=== PATIENT | female | born 1940 | race Caucasian/White ===

== ENCOUNTER 2019-12-22 10:30 | Emergency (ER) | payer MEDICARE, OTHER ==
[2019-12-22] MEDS ORDERED: SODIUM CHLORIDE 0.9% 1,000 ML IV STA ×2 (11:13)
[2019-12-22] MEDS ORDERED: MORPHINE SULFATE 4 MG/ML SYRINGE IVP STA (11:20)
[2019-12-22] MEDS ORDERED: PANTOPRAZOLE 40 MG/10 ML VIAL IVP STA (11:20)
[2019-12-22 11:44] LABS: Basophils % (A) 0 %; Eosinophils # (A) 0.1 k/uL (0-0.7); Eosinophils % (A) 3 %; HCT 43.3 % (34.0-46.0); HGB 13.6 gm/dL (11.4-16.0); Lymphocytes # (A) 1.2 k/uL (1.0-4.8); Lymphocytes % (A) 24 %; MCH 30.3 pg (25.0-35.0); MCHC 31.5 g/dL (31.0-37.0); MCV 96.3 fL (80.0-100.0); Mean Platelet Volume 9.8; Monocytes # (A) 0.2 k/uL (0-1.0); Monocytes % (A) 5 %; Neutrophils # (A) 3.4 k/uL (1.3-7.7); Neutrophils % (A) 67 %; Platelet Count 166 k/uL (150-450); RBC 4.49 m/uL (3.80-5.40); RDW 15.1 % (11.5-15.5); WBC 5.1 k/uL (3.8-10.6)
[2019-12-22 11:50] LABS: ALT 11 U/L (4-34); AST 24 U/L (14-36); African American GFR (CKD) >90 (>60 ml/min/1.73 sqM); Albumin 3.5 g/dL (3.5-5.0); Alkaline Phosphatase 102 U/L (38-126); Amylase 31 U/L (30-110); Anion Gap 9 mmol/L; Blood Urea Nitrogen 14 mg/dL (7-17); Calcium 8.6 mg/dL (8.4-10.2); Carbon Dioxide 25 mmol/L (22-30); Chloride 106 mmol/L (98-107); Glucose 103 mg/dL (74-99); Non-African American GFR(CKD) 86 (>60 ml/min/1.73 sqM); Potassium 3.4 mmol/L (3.5-5.1); Sodium 140 mmol/L (137-145); Total Bilirubin 1.8 mg/dL (0.2-1.3); Total Protein 6.7 g/dL (6.3-8.2)
--- NOTE | 2019-12-22 11:50 | ED ---
Abdominal Pain HPI - General Chief Complaint: Abdominal Pain Stated Complaint: lower GI Bleed Time Seen by Provider: 12/22/19 10:49 Source: patient, family, RN notes reviewed, old records reviewed Mode of arrival: wheelchair Limitations: no limitations - History of Present Illness Initial Comments: 79-year-old female presents emergency department today for evaluation for concern for lower GI bleed. She is on Coumadin with history of A. fib. They report her INR has been elevated around 3.2, and she should normally be 2-3. Patient complained of some left lower abdominal pain had a bowel movement today noticed mucousy bloody stool. Patient son reports she has early Alzheimer's. Denies mental status change. - Related Data Home Medications Medication Instructions Recorded Confirmed Allopurinol [Zyloprim] 300 mg PO DAILY@0600 12/22/19 12/22/19 Cholecalciferol (Vitamin D3) 2,000 unit PO DAILY@0600 12/22/19 12/22/19 [Vitamin D3] Cyanocobalamin [Vitamin B-12] 500 mcg PO DAILY@0600 12/22/19 12/22/19 Donepezil [Aricept] 10 mg PO BID@0600,1800 12/22/19 12/22/19 Lovastatin [Mevacor] 20 mg PO HS@1800 12/22/19 12/22/19 Memantine [Namenda] 10 mg PO BID@0600,1800 12/22/19 12/22/19 Methylphenidate HCl [Ritalin] 10 mg PO BID@0600,1200 12/22/19 12/22/19 Metoprolol Succinate [Toprol XL] 25 mg PO HS@179912/22/19 12/22/19 Warfarin Sodium 4 mg PO MOTUWETHFRSA@179912/22/19 12/22/19 Warfarin Sodium 6 mg PO YOO@179912/22/19 12/22/19 Previous Rx's Medication Instructions Recorded Amoxic-Pot Clav 875-125Mg 1 tab PO Q12HR #20 tablet 12/22/19 [Augmentin 875-125] Allergies Allergy/AdvReac Type Severity Reaction Status Date / Time UNKNOWN ANTIBIOTIC Allergy Unknown Uncoded 12/22/19 12:06 Review of Systems ROS Statement: Those systems with pertinent positive or pertinent negative responses have been documented in the HPI. ROS Other: All systems not noted in ROS Statement are negative. Past Medical History Past Medical History: Hypertension Additional Past Medical History / Comment(s): alhzeimer History of Any Multi-Drug Resistant Organisms: None Reported Past Surgical History: Cholecystectomy, Hernia Repair, Hysterectomy Smoking Status: Never smoker Past Alcohol Use History: None Reported Past Drug Use History: None Reported General Exam - General Exam Comments Initial Comments: 79-year-old female. Alert and oriented 3. Limitations: no limitations General appearance: alert, in no apparent distress Head exam: Present: atraumatic, normocephalic, normal inspection Eye exam: Present: normal appearance, PERRL, EOMI. Absent: scleral icterus, conjunctival injection, periorbital swelling ENT exam: Present: normal exam, mucous membranes moist Neck exam: Present: normal inspection. Absent: tenderness, meningismus, lymphadenopathy Respiratory exam: Present: normal lung sounds bilaterally. Absent: respiratory distress, wheezes, rales, rhonchi, stridor Cardiovascular Exam: Present: regular rate, normal rhythm, normal heart sounds. Absent: systolic murmur, diastolic murmur, rubs, gallop, clicks GI/Abdominal exam: Present: soft, tenderness (LLQ tenderness), normal bowel sounds. Absent: distended, guarding, rebound, rigid Rectal exam: Present: heme (+) stool (bright red blood, mucous stool) Extremities exam: Present: normal inspection, full ROM, normal capillary refill. Absent: tenderness, pedal edema, joint swelling, calf tenderness Back exam: Present: normal inspection Neurological exam: Present: alert, oriented X3, CN II-XII intact Course Vital Signs 12/22/19 12/22/19 12/22/19 10:38 12:45 13:39 Temperature 97.7 F 97.9 F Pulse Rate 89 66 80 Respiratory 18 18 19 Rate Blood Pressure 141/90 125/78 128/90 O2 Sat by Pulse 95 93 L 96 Oximetry Medical Decision Making - Medical Decision Making 79-year-old female presented today with complaint of concern for bloody mucousy stools left lower quadrant pain onset today. Vital signs are stable. Patient's labwork was reviewed and normal hemoglobin of 13. She does have red blood per rectum, mucousy stool. She had a computed tomography scan showing evidence of mild colitis. Computed tomography scan also mentioned some groundglass opacities concerning for infectious etiology. Discussed at this time placing the Patient on Augmentin to cover for abnormal findings on CT of her lungs as well as to treat for colitis. Discussed. Liquid diet. Her INR is elevated at 3.3. I discussed with antibiotics 2 hold the Coumadin for 2 days and to recheck with primary care doctor. All questions were answered return parameters were discussed. - Lab Data Result diagrams: 12/22/19 11:25 12/22/19 11:25 Lab Results 12/22/19 12/22/19 12/22/19 Range/Units 11:25 11:25 11:25 WBC 5.1 (3.8-10.6) k/uL RBC 4.49 (3.80-5.40) m/uL Hgb 13.6 (11.4-16.0) gm/dL Hct 43.3 (34.0-46.0) % MCV 96.3 (80.0-100.0) fL MCH 30.3 (25.0-35.0) pg MCHC 31.5 (31.0-37.0) g/dL RDW 15.1 (11.5-15.5) % Plt Count 166 (150-450) k/uL Neutrophils % 67 % Lymphocytes % 24 % Monocytes % 5 % Eosinophils % 3 % Basophils % 0 % Neutrophils # 3.4 (1.3-7.7) k/uL Lymphocytes # 1.2 (1.0-4.8) k/uL Monocytes # 0.2 (0-1.0) k/uL Eosinophils # 0.1 (0-0.7) k/uL Basophils # 0.0 (0-0.2) k/uL PT 31.8 H (9.0-12.0) sec INR 3.3 H (<1.2) APTT 32.7 H (22.0-30.0) sec Sodium 140 (137-145) mmol/L Potassium 3.4 L (3.5-5.1) mmol/L Chloride 106 (98-107) mmol/L Carbon Dioxide 25 (22-30) mmol/L Anion Gap 9 mmol/L BUN 14 (7-17) mg/dL Creatinine 0.64 (0.52-1.04) mg/dL Est GFR (CKD-EPI)AfAm >90 (>60 ml/min/1.73 sqM) Est GFR (CKD-EPI)NonAf 86 (>60 ml/min/1.73 sqM) Glucose 103 H (74-99) mg/dL Calcium 8.6 (8.4-10.2) mg/dL Total Bilirubin 1.8 H (0.2-1.3) mg/dL AST 24 (14-36) U/L ALT 11 (4-34) U/L Alkaline Phosphatase 102 (38-126) U/L Total Protein 6.7 (6.3-8.2) g/dL Albumin 3.5 (3.5-5.0) g/dL Amylase 31 (30-110) U/L Lipase 224 (23-300) U/L Urine Color Urine Appearance (Clear) Urine pH (5.0-8.0) Ur Specific [place] (1.001-1.035) Urine Protein (Negative) Urine Glucose (UA) (Negative) Urine Ketones (Negative) Urine Blood (Negative) Urine Nitrite (Negative) Urine Bilirubin (Negative) Urine Urobilinogen (<2.0) mg/dL Ur Leukocyte Esterase (Negative) Urine RBC (0-5) /hpf Urine WBC (0-5) /hpf Ur Squamous Epith Cells (0-4) /hpf Urine Bacteria (None) /hpf Hyaline Casts (0-2) /lpf Urine Mucus (None) /hpf Stool Occult Blood (Negative) 12/22/19 12/22/19 Range/Units 11:49 12:06 WBC (3.8-10.6) k/uL RBC (3.80-5.40) m/uL Hgb (11.4-16.0) gm/dL Hct (34.0-46.0) % MCV (80.0-100.0) fL MCH (25.0-35.0) pg MCHC (31.0-37.0) g/dL RDW (11.5-15.5) % Plt Count (150-450) k/uL Neutrophils % % Lymphocytes % % Monocytes % % Eosinophils % % Basophils % % Neutrophils # (1.3-7.7) k/uL Lymphocytes # (1.0-4.8) k/uL Monocytes # (0-1.0) k/uL Eosinophils # (0-0.7) k/uL Basophils # (0-0.2) k/uL PT (9.0-12.0) sec INR (<1.2) APTT (22.0-30.0) sec Sodium (137-145) mmol/L Potassium (3.5-5.1) mmol/L Chloride (98-107) mmol/L Carbon Dioxide (22-30) mmol/L Anion Gap mmol/L BUN (7-17) mg/dL Creatinine (0.52-1.04) mg/dL Est GFR (CKD-EPI)AfAm (>60 ml/min/1.73 sqM) Est GFR (CKD-EPI)NonAf (>60 ml/min/1.73 sqM) Glucose (74-99) mg/dL Calcium (8.4-10.2) mg/dL Total Bilirubin (0.2-1.3) mg/dL AST (14-36) U/L ALT (4-34) U/L Alkaline Phosphatase (38-126) U/L Total Protein (6.3-8.2) g/dL Albumin (3.5-5.0) g/dL Amylase (30-110) U/L Lipase (23-300) U/L Urine Color Yellow Urine Appearance Clear (Clear) Urine pH 6.0 (5.0-8.0) Ur Specific [place] 1.018 (1.001-1.035) Urine Protein Trace H (Negative) Urine Glucose (UA) Negative (Negative) Urine Ketones Negative (Negative) Urine Blood Trace H (Negative) Urine Nitrite Negative (Negative) Urine Bilirubin Negative (Negative) Urine Urobilinogen 2.0 (<2.0) mg/dL Ur Leukocyte Esterase Small H (Negative) Urine RBC 2 (0-5) /hpf Urine WBC 1 (0-5) /hpf Ur Squamous Epith Cells 4 (0-4) /hpf Urine Bacteria Rare H (None) /hpf Hyaline Casts 10 H (0-2) /lpf Urine Mucus Moderate H (None) /hpf Stool Occult Blood Positive H (Negative) - Radiology Data Radiology results: report reviewed Groundglass opacities faintly present lung bases. Consider infectious etiology. Some THICKENING of the rectum not excluded. Mild thickening incomplete distended distal symmetric sigmoid colon. Consider mild colitis. Diverticulosis without acute diverticulitis. Disposition Clinical Impression: Opacity of lung on imaging study, Colitis Disposition: HOME SELF-CARE Condition: Good Instructions (If sedation given, give patient instructions): Colitis (ED) Additional Instructions: Patient should have a clear liquid diet for the first 2 days. Then advance to bananas, rice, applesauce and toast diet. Discontinue Coumadin for 2 days. Recommended recheck after this. Patient should follow-up with primary care doctor in regards to CT finding. Return to emergency department if there is any alarming signs or symptoms occur. Prescriptions: Amoxic-Pot Clav 875-125Mg [Augmentin 875-125] 1 tab PO Q12HR #20 tablet Is patient prescribed a controlled substance at d/c from ED?: No Referrals: Juanjo Lin MD [Primary Care Provider] - 1-2 days Time of Disposition: 13:34
[2019-12-22 11:54] LABS: INR 3.3 (<1.2); Partial Thromboplastin Time 32.7 sec (22.0-30.0); Prothrombin Time 31.8 sec (9.0-12.0)
[2019-12-22 12:01] LABS: Appearance,Urine Clear (Clear); Bacteria,Urine Rare /hpf; Bilirubin,Urine Negative (Negative); Blood,Urine Trace (Negative); Color,Urine Yellow; Glucose,Urine (UA) Negative (Negative); Hyaline Casts,Urine 10 /lpf (0-2); Ketones,Urine Negative (Negative); Leukocyte Esterase,Urine Small (Negative); Mucus,Urine Moderate /hpf; Nitrite,Urine Negative (Negative); Protein,Urine Trace (Negative); RBC,Urine 2 /hpf (0-5); Specific Gravity,Urine 1.018 (1.001-1.035); Squamous Epithelial Cell,Urine 4 /hpf (0-4); WBC,Urine 1 /hpf (0-5)
--- NOTE | 2019-12-22 12:50 | CT ---
EXAMINATION TYPE: CT abdomen pelvis w con DATE OF EXAM: 12/22/2019 COMPARISON: None INDICATION: Lower GI Bleed DLP: 1476.9 mGycm, Automated exposure control for dose reduction was used. CONTRAST: 100 ml mL of Isovue 300. Study performed without Oral Contrast TECHNIQUE: Axial images were obtained from above the diaphragm to the pubic rami in the axial plane a t 5 mm thick sections. Reconstructed images are reviewed on the computer in the coronal plane. FINDINGS: Limited CT sections are obtained the lung bases. There is some groundglass opacities at the lung bas es. Infectious etiology should be considered within the differential. Pulmonary edema could be consid ered.. CT ABDOMEN: Liver: There is moderate fatty infiltration liver. Spleen: Normal Pancreas: Normal Adrenal glands: The adrenal glands are normal. Gallbladder: Surgically absent. Common bile duct is somewhat prominent. Kidneys: No masses are evident. No hydronephrosis is present. There is a cyst on the superior anter ior pole right kidney measuring 1.1 cm in -1 Hounsfield units Delayed images were obtained through t he kidneys, which remain unremarkable. Aorta: Normal Inferior vena cava: Normal. CT PELVIS: Studies performed without oral contrast. There are scattered diverticuli within the colon. This is gr eater in the sigmoid colon. No acute diverticulitis is evident. Rectal wall thickening cannot be excl uded. Clinical correlation is recommended. Appendix: Not visualized. No suspicious dilated tubular structures or inflammatory changes are eviden t. Urinary bladder: Normal. Genitourinary structures: Uterus and ovaries are not identified. Osseous structures: No suspicious lytic or sclerotic lesions. IMPRESSIONS: 1. Groundglass opacities faintly present at the lung bases. Consider an infectious etiology. 2. Some wall thickening of the rectum is not excluded. Milder thickening of the incompletely distende d distal sigmoid colon may be present. Consider some mild colitis. Clinical correlation recommended. 3. Diverticulosis without acute diverticulitis.
[2019-12-22] MEDS ORDERED: AMOXIC-POT CLAV 875MG STARTER PACK 2 TAB BTL PO STA (13:29)
[2019-12-22 13:40] VITALS: BP 128/90; PULSE 80; RESP 19; TEMP 97.9
== END 2019-12-22 13:40 | disposition home or self-care (01) ==
LOC: EC 10:30
DX: K52.9 Noninfective gastroenteritis and colitis, unspecified (principal); R91.8 Other nonspecific abnormal finding of lung field; I10 Essential (primary) hypertension; G30.9 Alzheimer's disease, unspecified; I48.91 Unspecified atrial fibrillation; Z79.899 Other long term (current) drug therapy; Z79.01 Long term (current) use of anticoagulants; Z88.1 Allergy status to other antibiotic agents; Z90.49 Acquired absence of other specified parts of digestive tract; Z90.710 Acquired absence of both cervix and uterus
CPT/HCPCS: 36415; 80053; 82150; 83690; 85025; 85610; 85730; 82272; 81001; 74177; 99284; 96374; 96375; 96361 ×2; J2270; C9113; Q9967

== ENCOUNTER 2020-02-18 12:12 | Inpatient (IN) | payer MEDICARE, OTHER ==
[2020-02-18] MEDS ORDERED: SODIUM CHLORIDE 0.9% 1,000 ML IV ONE ×2 (12:40)
[2020-02-18] MEDS ORDERED: MORPHINE SULFATE 4 MG/ML SYRINGE IV STA (12:40)
--- NOTE | 2020-02-18 13:22 | ED ---
Fall HPI - General Source: patient, RN notes reviewed, old records reviewed Mode of arrival: wheelchair <Ruth Marley - Last Filed: 02/18/20 15:45> <Jasiel Abbasi - Last Filed: 02/18/20 16:07> - General Chief Complaint: Fall Stated Complaint: Fall Time Seen by Provider: 02/18/20 12:24 - History of Present Illness Initial Comments: Patient is a 79-year-old female presents emergency department today with history of Alzheimer's. Patient reportedly tripped and fell she was home by herself and hit the front of her chest right chest wall on the edge of the couch. She complains of significant pain and tenderness to the right ribs with taking a deep breath and any movement. She is here with her son who takes care of her. He was at work when he was given a call by his in-laws who take care of his own mother at lunch time. The in-laws found her sitting on the ground and it's unknown for how long, but with son going to work Patient has been down to less than 3 hours. Patient denies any loss of consciousness. His her son states that she does have extensive history of Alzheimer's disease and her own history is not accurate. Patient's son states that he is concerned that he is unable to leave her at home anymore with the concern for falling and worsening dementia and is searching for some placement opportunities in assisted living or nursing facility. (Ruth Marley) - Related Data Home Medications Medication Instructions Recorded Confirmed Allopurinol [Zyloprim] 300 mg PO DAILY@0600 12/22/19 02/18/20 Cholecalciferol (Vitamin D3) 2,000 unit PO DAILY@59912/22/19 02/18/20 [Vitamin D3] Cyanocobalamin [Vitamin B-12] 500 mcg PO DAILY@59912/22/19 02/18/20 Donepezil [Aricept] 10 mg PO BID@06,199912/22/19 02/18/20 Lovastatin [Mevacor] 20 mg PO HS@199912/22/19 02/18/20 Memantine [Namenda] 10 mg PO BID@0600,199912/22/19 02/18/20 Methylphenidate HCl [Ritalin] 10 mg PO BID@0600,119912/22/1902/17/20 Metoprolol Succinate [Toprol XL] 25 mg PO HS@199912/22/19 02/18/20 Warfarin Sodium 4 mg PO MOTUWETHFRSA@199912/22/19 02/18/20 Warfarin Sodium 6 mg PO YOO@199912/22/19 02/18/20 Furosemide [Lasix] 40 mg PO DAILY@0600 02/18/20 02/18/20 Allergies Allergy/AdvReac Type Severity Reaction Status Date / Time sulfamethazine Allergy Unknown Verified 02/18/20 15:02 trimethoprim Allergy Unknown Verified 02/18/20 15:02 Review of Systems ROS Other: All systems not noted in ROS Statement are negative. <Ruth Marley - Last Filed: 02/18/20 15:45> ROS Other: All systems not noted in ROS Statement are negative. <Jasiel Abbasi - Last Filed: 02/18/20 16:07> ROS Statement: Those systems with pertinent positive or pertinent negative responses have been documented in the HPI. Past Medical History Past Medical History: Hypertension Additional Past Medical History / Comment(s): alhzeimer History of Any Multi-Drug Resistant Organisms: None Reported Past Surgical History: Cholecystectomy, Hernia Repair, Hysterectomy Smoking Status: Never smoker Past Alcohol Use History: None Reported Past Drug Use History: None Reported <Ruth Marley - Last Filed: 02/18/20 15:45> General Exam Limitations: no limitations General appearance: alert Head exam: Present: atraumatic, normocephalic, normal inspection Eye exam: Present: normal appearance, PERRL, EOMI. Absent: scleral icterus, conjunctival injection, periorbital swelling ENT exam: Present: normal exam, mucous membranes moist Neck exam: Present: normal inspection. Absent: tenderness, meningismus, lymphadenopathy Respiratory exam: Present: other ( has significant tenderness over the right anterior ribs and sternum. No bruising.). Absent: normal lung sounds bilaterally, respiratory distress, wheezes, rales, rhonchi, stridor Cardiovascular Exam: Present: regular rate, normal rhythm, normal heart sounds. Absent: systolic murmur, diastolic murmur, rubs, gallop, clicks GI/Abdominal exam: Present: soft, normal bowel sounds. Absent: distended, tenderness, guarding, rebound, rigid Extremities exam: Present: normal inspection, full ROM, normal capillary refill. Absent: tenderness, pedal edema, joint swelling, calf tenderness Back exam: Present: normal inspection Neurological exam: Present: alert, oriented X3, CN II-XII intact Psychiatric exam: Present: normal affect, normal mood Skin exam: Present: warm, dry, intact, normal color. Absent: rash <Alecia Marleyily - Last Filed: 02/18/20 15:45> - General Exam Comments Initial Comments: 79-year-old female. Patient is demented. Patient has some mild/moderate discomfort and tearful. (Ruth Marley) Course Vital Signs 02/18/20 02/18/20 02/18/20 12:13 13:26 15:26 Temperature 98.0 F Pulse Rate 86 82 87 Respiratory 18 18 20 Rate Blood Pressure 113/80 119/89 133/101 O2 Sat by Pulse 95 95 Oximetry Medical Decision Making - Lab Data Result diagrams: 02/18/20 12:58 02/18/20 12:58 - Radiology Data Radiology results: report reviewed <Ruth Marley - Last Filed: 02/18/20 15:45> - Lab Data Result diagrams: 02/18/20 12:58 02/18/20 12:58 <Jasiel Abbasi - Last Filed: 02/18/20 16:07> - Medical Decision Making 79-year-old female with extensive dementia and Alzheimer disease presents emergency department today after a fall. Patient does have a known history of A. fib and is on Coumadin. Patient INR is 2.3. Is unknown if she may have hit her head when she became dizzy and fell. CT brain and C-spine were negative for any acute intracranial process at this time. Patient's labwork was reviewed and unremarkable. Patient's son is concerned with her history of Alzheimer's and falls that he is unable to give complete care to the Patient as he does have to work and she is left alone at home. They are looking for assisted living facilities for further care of the Patient. Today she does have significant right rib tenderness, no bruising is noted. Vital signs have been stable. Her chest x-ray shows increased hilar prominence concern for possible mass. I did bring this chest x-ray finding up with his son states that they have been told this is likely some concern for cancer by PCP however the son and Patient elected to do comfort care, and did not want further work up from this after discussion with PCP. 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 I did discuss there is some concern for occult fractures this Patient is tender at this time. Patient will be started on senna spirometry. The patient's Alzheimer's, weakness and electing for placement to nursing re-or rehab facility Patient was admitted at this time. I discussed the case with Dr. Abbasi. Discussed the case with sounds physician. Urinalysis is still currently pending. Son states that he will be available to discuss the patient's care and his phone number is on contact sheet as she does not provide complete history with dementia. (Ruth Marley) Patient reevaluated and reexamined by myself, Dr. Abbasi. I do agree with the findings. This includes diagnostic interpretation treatment plan. Patient family updated. Patient is resting comfortably in bed. Case was discussed with Dr. Nation, who will admit covered for hospital call. Family would like aids social worker consult for possible placement. Urinalysis still pending. (Jasiel Abbasi) - Lab Data Lab Results 02/18/20 02/18/20 02/18/20 Range/Units 12:58 12:58 12:58 WBC 5.9 (3.8-10.6) k/uL RBC 4.80 (3.80-5.40) m/uL Hgb 14.4 (11.4-16.0) gm/dL Hct 46.7 H (34.0-46.0) % MCV 97.2 (80.0-100.0) fL MCH 30.0 (25.0-35.0) pg MCHC 30.8 L (31.0-37.0) g/dL RDW 15.3 (11.5-15.5) % Plt Count 156 (150-450) k/uL Neutrophils % 68 % Lymphocytes % 23 % Monocytes % 6 % Eosinophils % 1 % Basophils % 1 % Neutrophils # 4.0 (1.3-7.7) k/uL Lymphocytes # 1.4 (1.0-4.8) k/uL Monocytes # 0.4 (0-1.0) k/uL Eosinophils # 0.1 (0-0.7) k/uL Basophils # 0.0 (0-0.2) k/uL Hypochromasia Slight PT 22.5 H (9.0-12.0) sec INR 2.3 H (<1.2) APTT 30.5 H (22.0-30.0) sec Sodium 139 (137-145) mmol/L Potassium 3.4 L (3.5-5.1) mmol/L Chloride 101 (98-107) mmol/L Carbon Dioxide 29 (22-30) mmol/L Anion Gap 9 mmol/L BUN 14 (7-17) mg/dL Creatinine 0.60 (0.52-1.04) mg/dL Est GFR (CKD-EPI)AfAm >90 (>60 ml/min/1.73 sqM) Est GFR (CKD-EPI)NonAf 88 (>60 ml/min/1.73 sqM) Glucose 130 H (74-99) mg/dL Calcium 8.7 (8.4-10.2) mg/dL Total Bilirubin 1.9 H (0.2-1.3) mg/dL AST 36 (14-36) U/L ALT 13 (4-34) U/L Alkaline Phosphatase 107 (38-126) U/L Troponin I (0.000-0.034) ng/mL Total Protein 6.6 (6.3-8.2) g/dL Albumin 3.3 L (3.5-5.0) g/dL 02/18/20 Range/Units 12:58 WBC (3.8-10.6) k/uL RBC (3.80-5.40) m/uL Hgb (11.4-16.0) gm/dL Hct (34.0-46.0) % MCV (80.0-100.0) fL MCH (25.0-35.0) pg MCHC (31.0-37.0) g/dL RDW (11.5-15.5) % Plt Count (150-450) k/uL Neutrophils % % Lymphocytes % % Monocytes % % Eosinophils % % Basophils % % Neutrophils # (1.3-7.7) k/uL Lymphocytes # (1.0-4.8) k/uL Monocytes # (0-1.0) k/uL Eosinophils # (0-0.7) k/uL Basophils # (0-0.2) k/uL Hypochromasia PT (9.0-12.0) sec INR (<1.2) APTT (22.0-30.0) sec Sodium (137-145) mmol/L Potassium (3.5-5.1) mmol/L Chloride (98-107) mmol/L Carbon Dioxide (22-30) mmol/L Anion Gap mmol/L BUN (7-17) mg/dL Creatinine (0.52-1.04) mg/dL Est GFR (CKD-EPI)AfAm (>60 ml/min/1.73 sqM) Est GFR (CKD-EPI)NonAf (>60 ml/min/1.73 sqM) Glucose (74-99) mg/dL Calcium (8.4-10.2) mg/dL Total Bilirubin (0.2-1.3) mg/dL AST (14-36) U/L ALT (4-34) U/L Alkaline Phosphatase (38-126) U/L Troponin I 0.021 (0.000-0.034) ng/mL Total Protein (6.3-8.2) g/dL Albumin (3.5-5.0) g/dL 02/18/20 13:21 EKG performed at 1316 shows atrial fibrillation, left axis deviation. Incomplete left bundle-branch block. Nonspecific T-wave abnormality. Prolonged QT. Abnormal EKG. Ventricular rate of 80 bpm. Was instructed. She mormon is 160 ms. QT QTc is 414/500 ms. (Ruth Marley) - Radiology Data CT brain shows atrophy and chronic appearing. Ventricular white matter ischemic type change. CT cervical spine shows no changes, no acute osseous had normal is evident. Some volume overload and early pulmonary edema considered visualized portions of lungs. CXR shows Deformity involving the anterior right ninth rib appears chronic. Correlate for point tenderness. Marked right hilar prominence underlying mass in the differential diagnosis recommended computed tomography scan. (Ruth Marley) Disposition Is patient prescribed a controlled substance at d/c from ED?: No Time of Disposition: 15:54 <Ruth Marley - Last Filed: 02/18/20 15:45> <Jasiel Abbasi - Last Filed: 02/18/20 16:07> Clinical Impression: Fall, Alzheimer disease, Rib pain on right side, Abnormal CXR, Afib Disposition: ADMITTED IP TO THIS HOSP Condition: Stable Referrals: Juanjo Lin MD [Primary Care Provider] - 1-2 days
[2020-02-18 14:02] LABS: Basophils % (A) 1 %; Eosinophils # (A) 0.1 k/uL (0-0.7); Eosinophils % (A) 1 %; HCT 46.7 % (34.0-46.0); HGB 14.4 gm/dL (11.4-16.0); Hypochromasia Slight; Lymphocytes # (A) 1.4 k/uL (1.0-4.8); Lymphocytes % (A) 23 %; MCHC 30.8 g/dL (31.0-37.0); MCV 97.2 fL (80.0-100.0); Mean Platelet Volume 9.7; Monocytes # (A) 0.4 k/uL (0-1.0); Monocytes % (A) 6 %; Neutrophils % (A) 68 %; Platelet Count 156 k/uL (150-450); RDW 15.3 % (11.5-15.5); WBC 5.9 k/uL (3.8-10.6)
[2020-02-18 14:18] LABS: INR 2.3 (<1.2); Partial Thromboplastin Time 30.5 sec (22.0-30.0); Prothrombin Time 22.5 sec (9.0-12.0)
--- NOTE | 2020-02-18 14:19 | XR ---
EXAMINATION TYPE: XR ribs RT w pa chest xray DATE OF EXAM: 02/18/2020 COMPARISON: NONE TECHNIQUE: PA and lateral views submitted. HISTORY: Pain post fall FINDINGS: There is marked right hilar prominence suspicious for mass. Coarsened interstitium and cardiomegaly s een and there is a limited inspiration. Atherosclerotic change aorta. Arthropathy of the shoulders wi th diffuse osteopenia. No pneumothorax. There is a subtle deformity involving the anterolateral right ninth rib. IMPRESSION: 1. 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 Correlate with point tenderness for confirmation. 2. Marked right hilar prominence underlying mass in the differential diagnosis recommend CT scan.
[2020-02-18 14:20] LABS: ALT 13 U/L (4-34); AST 36 U/L (14-36); African American GFR (CKD) >90 (>60 ml/min/1.73 sqM); Albumin 3.3 g/dL (3.5-5.0); Alkaline Phosphatase 107 U/L (38-126); Anion Gap 9 mmol/L; Blood Urea Nitrogen 14 mg/dL (7-17); Calcium 8.7 mg/dL (8.4-10.2); Carbon Dioxide 29 mmol/L (22-30); Chloride 101 mmol/L (98-107); Glucose 130 mg/dL (74-99); Non-African American GFR(CKD) 88 (>60 ml/min/1.73 sqM); Potassium 3.4 mmol/L (3.5-5.1); Sodium 139 mmol/L (137-145); Total Bilirubin 1.9 mg/dL (0.2-1.3); Total Protein 6.6 g/dL (6.3-8.2)
--- NOTE | 2020-02-18 14:33 | CT ---
EXAMINATION TYPE: CT brain rafael wo con DATE OF EXAM: 02/18/2020 COMPARISON: None HISTORY: Fall CT DLP: 1407.4 mGycm, Automated exposure control for dose reduction was used. CONTRAST: Patient injected with 0 mL of Isovue 300. CT of the brain is performed utilizing 3 mm thick sections through the posterior fossa and 3 mm thick sections through the remaining calvarium. Study is performed within 24 hours of arrival to the hospital. No abnormal hyperdensity is present to suggest an acute intracranial hemorrhage. No mass lesion is evident. No acute infarcts are evident. Periventricular white matter hypodensity is present compatible with m icrovascular ischemic change. Ventricles and sulci are prominent for the patient age. Paranasal sinuses and mastoid air cells within the [id number] are clear. IMPRESSIONS: 1. Atrophy and chronic appearing periventricular white matter ischemic type change. CT cervical spine. COMPARISON: None CT of the cervical spine is performed in the axial plane at 2 mm thick sections. Reconstructed image s in the coronal, and sagittal plane are reviewed on the computer. No acute fractures are evident. Vertebral body alignment is normal. There is diffuse loss of disc height throughout the cervical spine. Small anterior vertebral body spu rs are present C5-C7. Vertebral body heights are preserved. No spinal canal stenosis is evident. Facet hypertrophy is present. Some uncovertebral joint hypertrophy is present C6-7 level with mild fo raminal narrowing. Upper lung apex within the [id number] has scattered lung opacities some minimal right pleural effu jennifer. Evaluate for volume overload and edema. IMPRESSIONS: 1. Degenerative changes within the cervical spine. No acute osseous abnormality is evident. 2. Some volume overload or early pulmonary edema should be considered within the visualized portions of the lungs.
[2020-02-18] MEDS ORDERED: ONDANSETRON 4 MG/2 ML VIAL IVP STA (15:24)
[2020-02-18] MEDS ORDERED: NALOXONE 0.4 MG/ML 1 ML VIAL IV PRN ×2 (16:31→17:32)
[2020-02-18] MEDS ORDERED: IBUPROFEN 400 MG TAB PO PRN (16:31)
[2020-02-18] MEDS ORDERED: ONDANSETRON 4 MG/2 ML VIAL IVP PRN (16:31)
[2020-02-18] MEDS ORDERED: oxyCODONE-APAP 5-325MG 1 EACH TAB PO PRN (16:31)
[2020-02-18] MEDS ORDERED: KETOROLAC 30 MG/ML 1 ML VIAL IVP PRN (16:31)
--- NOTE | 2020-02-18 17:19 | P.HPIM ---
History of Present Illness H&P Date: 02/18/20 Chief Complaint: Fall 79-year-old female with history of dementia, atrial fibrillation, congestive heart failure presents emergency department today after she tripped and fell. She was home by herself and hit the front of her chest on the edge of the couch. She complains of significant pain and tenderness to the right ribs with taking a deep breath and any movement. She is here with her son who takes care of her. All of this history was taken from her son as she is not reliable historian. Her son's in-laws found her sitting on the ground, unknown for how long. Patient denies any loss of consciousness. son states that patient has been weak over the past several months. She has been requiring more and more help due to that. No complaints of chest pain or shortness of breath. No dizziness. No focal weakness or numbness. No nausea or vomiting. No fevers or chills. No recent illness. Patient's son states that he is concerned that he is unable to leave her at home anymore with the concern for falling and worsening dementia and is searching for some placement opportunities in a nursing facility. In the emergency department she had chest x-ray which showed known underlying mass, intentionally not pursued in the past, no acute fractures. She also had a head and cervical spine CT which did not show any acute fractures or dislocation. Patient will be admitted to the hospital for further evaluation and management. Past Medical History Past Medical History: Hypertension Additional Past Medical History / Comment(s): alhzeimer History of Any Multi-Drug Resistant Organisms: None Reported Past Surgical History: Cholecystectomy, Hernia Repair, Hysterectomy Smoking Status: Never smoker Past Alcohol Use History: None Reported Past Drug Use History: None Reported Medications and Allergies Home Medications Medication Instructions Recorded Confirmed Type Allopurinol [Zyloprim] 300 mg PO DAILY@59912/22/19 02/18/20 History Cholecalciferol (Vitamin D3) 2,000 unit PO DAILY@59912/22/19 02/18/20 History [Vitamin D3] Cyanocobalamin [Vitamin B-12] 500 mcg PO DAILY@59912/22/19 02/18/20 History Donepezil [Aricept] 10 mg PO BID@12/22/19 02/18/20 History Lovastatin [Mevacor] 20 mg PO HS@199912/22/19 02/18/20 History Memantine [Namenda] 10 mg PO BID@0600,199912/22/19 02/18/20 History Methylphenidate HCl [Ritalin] 10 mg PO BID@0600,1200 12/22/19 02/18/20 History Metoprolol Succinate [Toprol XL] 25 mg PO HS@199912/22/19 02/18/20 History Warfarin Sodium 4 mg PO MOTUWETHFRSA@199912/22/19 02/18/20 History Warfarin Sodium 6 mg PO YOO@199912/22/19 02/18/20 History Furosemide [Lasix] 40 mg PO DAILY@0600 02/18/20 02/18/20 History Allergies Allergy/AdvReac Type Severity Reaction Status Date / Time sulfamethazine Allergy Unknown Verified 02/18/20 15:02 trimethoprim Allergy Unknown Verified 02/18/20 15:02 Physical Exam Vitals: Vital Signs Temp Pulse Resp BP Pulse Ox 02/18/20 15:26 87 20 133/101 95 02/18/20 13:26 82 18 119/89 02/18/20 12:13 98.0 F 86 18 113/80 95 Intake and Output 02/18/20 02/18/20 02/18/20 06:59 14:59 22:59 Other: Weight 90.718 kg Constitutional: No acute distress, conversant, pleasant Eyes:Anicteric sclerae, moist conjunctiva, no lid-lag, PERRLA, ENMT: Oropharynx clear, no erythema, exudates Neck: Supple, FROM, no masses, or JVD, No carotid bruits, No thyromegaly Lungs: Clear to auscultation, Clear to percussion, Normal respiratory effort, no accessory muscle use Cardiovascular: Heart regular in rate and rhythm, No murmurs, gallops, or rubs, No peripheral edema Abdominal: Soft, Nontender, no guarding, rebound or rigidity, Normoactive bowel sounds, No hepatomegaly, No splenomegaly, No palpable mass Skin: Normal temperature, tone, texture, turgor, no induration, No subcutaneous nodules, No rash, lesions, No ulcers Extremities: No digital cyanosis, No clubbing, Pedal pulses intact and symmetrical, Radial pulses intact and symmetrical, No calf tenderness Neuro: Alert and oriented to person, not place and time, muscles Strength 5/5 in all 4 extremities, Sensation to light touch grossly present throughout, Cranial nerves II-XII grossly intact, no focal sensory deficits Results CBC & Chem 7: 02/18/20 12:58 02/18/20 12:58 Labs: Abnormal Lab Results - Last 24 Hours (Table) 02/18/20 02/18/20 02/18/20 Range/Units 12:58 12:58 12:58 Hct 46.7 H (34.0-46.0) % MCHC 30.8 L (31.0-37.0) g/dL PT 22.5 H (9.0-12.0) sec INR 2.3 H (<1.2) APTT 30.5 H (22.0-30.0) sec Potassium 3.4 L (3.5-5.1) mmol/L Glucose 130 H (74-99) mg/dL Total Bilirubin 1.9 H (0.2-1.3) mg/dL Albumin 3.3 L (3.5-5.0) g/dL Assessment and Plan Plan: Acute CHF exacerbation Unknown type Echo Lasix IV Atrial fibrillation Continue Coumadin for now Adult failure to thrive/generalized weakness PT and OT HTN Alzehiemer dementia Gout All stable resume meds Admitted to observation expected length of stay less than 2 midnights. Son wantdarren patient placed in a nursing facility will discuss with care management in am
[2020-02-18 17:43] LABS: Appearance,Urine Cloudy (Clear); Bacteria,Urine Rare /hpf; Bilirubin,Urine Negative (Negative); Blood,Urine Trace (Negative); Calcium Oxalate Crystals,Urine Rare /hpf; Color,Urine Yellow; Glucose,Urine (UA) Negative (Negative); Hyaline Casts,Urine 22 /lpf (0-2); Ketones,Urine Negative (Negative); Leukocyte Esterase,Urine Negative (Negative); Mucus,Urine Many /hpf; Nitrite,Urine Negative (Negative); PH, Urine 5.5 (5.0-8.0); Protein,Urine 1+ (Negative); RBC,Urine 3 /hpf (0-5); Specific Gravity,Urine 1.017 (1.001-1.035); Squamous Epithelial Cell,Urine 3 /hpf (0-4); WBC,Urine 2 /hpf (0-5)
[2020-02-18] MEDS: SODIUM CHLORIDE 0.9% 1,000 ML IV SCH (20:28)
[2020-02-18] MEDS: ATORVASTATIN 10 MG TAB PO SCH (20:38)
[2020-02-18] MEDS: FUROSEMIDE 10 MG/ML 4 ML VIAL IV SCH (20:38)
[2020-02-18] MEDS: MEMANTINE 10 MG TAB PO SCH (20:38)
[2020-02-18] MEDS: WARFARIN 2 MG TAB PO SCH (20:39)
[2020-02-18] MEDS: DONEPEZIL 10 MG TAB PO SCH (21:36)
[2020-02-18] MEDS: METOPROLOL SUCCINATE (ER) 25 MG TAB.ER.24H PO SCH (21:36)
[2020-02-19] MEDS: SODIUM CHLORIDE 0.9% 1,000 ML IV SCH ×2 (04:35→13:08)
[2020-02-19] MEDS: MEMANTINE 10 MG TAB PO SCH ×2 (05:27→20:08)
[2020-02-19] MEDS: CHOLECALCIFEROL 1,000 UNIT TAB PO SCH (05:27)
[2020-02-19] MEDS: DONEPEZIL 10 MG TAB PO SCH ×2 (05:27→20:08)
[2020-02-19] MEDS: CYANOCOBALAMIN 500 MCG TAB PO SCH (05:27)
[2020-02-19] MEDS: ALLOPURINOL 300 MG TAB PO SCH (05:27)
[2020-02-19] MEDS: METHYLPHENIDATE HCL 10 MG TAB PO SCH ×2 (05:27→13:08)
[2020-02-19] MEDS ORDERED: FUROSEMIDE 40 MG TAB PO SCH (06:00)
[2020-02-19 07:34] LABS: INR 2.6 (<1.2); Prothrombin Time 24.9 sec (9.0-12.0)
[2020-02-19 07:40] LABS: Albumin 3.2 g/dL (3.5-5.0); Basophils % (A) 1 %; Calcium 8.5 mg/dL (8.4-10.2); Eosinophils % (A) 0 %; HCT 46.5 % (34.0-46.0); HGB 13.8 gm/dL (11.4-16.0); Hypochromasia Moderate; Lymphocytes # (A) 1.6 k/uL (1.0-4.8); Lymphocytes % (A) 26 %; MCH 29.5 pg (25.0-35.0); MCHC 29.7 g/dL (31.0-37.0); MCV 99.2 fL (80.0-100.0); Macrocytosis Slight; Magnesium 1.6 mg/dL (1.6-2.3); Mean Platelet Volume 9.4; Monocytes # (A) 0.4 k/uL (0-1.0); Monocytes % (A) 6 %; Neutrophils # (A) 4.1 k/uL (1.3-7.7); Neutrophils % (A) 66 %; Phosphorus 4.2 mg/dL (2.5-4.5); Platelet Count 143 k/uL (150-450); Potassium 3.5 mmol/L (3.5-5.1); RBC 4.69 m/uL (3.80-5.40); RDW 15.3 % (11.5-15.5); Total Protein 6.3 g/dL (6.3-8.2); WBC 6.2 k/uL (3.8-10.6)
[2020-02-19] MEDS: FUROSEMIDE 10 MG/ML 4 ML VIAL IV SCH ×2 (08:32→21:38)
[2020-02-19] MEDS: PANTOPRAZOLE 40 MG/10 ML VIAL IV SCH (08:32)
--- NOTE | 2020-02-19 11:00 | ECHOF ---
Referral Reason:chf MEASUREMENTS -------- HEIGHT: 160.0 cm WEIGHT: 90.7 kg BP: 118/74 RVIDd: 4.0 cm (< 3.3) IVSd: 1.0 cm (0.6 - 1.1) LVIDd: 6.7 cm (3.9 - 5.3) LVPWd: 1.0 cm (0.6 - 1.1) IVSs: 0.9 cm LVIDs: 6.4 cm LVPWs: 1.1 cm LAESV Index (A-L): 53.42 ml/m Ao Diam: 3.0 cm (2.0 - 3.7) AV Cusp: 1.8 cm (1.5 - 2.6) LA Diam: 4.5 cm (2.7 - 3.8) AR PHT: 575 ms RAP: 20.00 mmHg RVSP: 61.29 mmHg FINDINGS -------- Undetermined rhythm. This was a technically good study. The left ventricle is severely dilated. Left ventricular wall thickness is normal. There is sever e global hypokinesis of LV . Overall left ventricular systolic function is severely impaired with, an EF < 20%. Increased LAP Grade 3 Diastolic Dysfunction. The right ventricle is moderately enlarged. LA is severely dilated >40 ml/m2 The right atrium is mildly enlarged. Aortic valve is trileaflet and is mildly thickened. There is mild aortic regurgitation. The mitral valve is normal. The mitral valve leaflets are mildly thickened. Rkirfdnl-oc-dmpqij mi tral regurgitation is present. The tricuspid valve appears structurally normal. Severe tricuspid regurgitation present. There is moderate pulmonary hypertension. The right ventricular systolic pressure, as measured by Doppler, is 61.29mmHg. There is no pulmonic regurgitation present. The aortic root size is normal. The inferior vena cava is dilated with no significant inspiratory collapse which is consistent estima oriana right atrial pressure of >20 mmHg. There is no pericardial effusion. CONCLUSIONS -------- 1. Undetermined rhythm. 2. This was a technically good study. 3. The left ventricle is severely dilated. 4. Left ventricular wall thickness is normal. 5. There is severe global hypokinesis of LV . 6. Overall left ventricular systolic function is severely impaired with, an EF < 20%. 7. Increased LAP Grade 3 Diastolic Dysfunction. 8. The right ventricle is moderately enlarged. 9. LA is severely dilated >40 ml/m2 10. The right atrium is mildly enlarged. 11. Aortic valve is trileaflet and is mildly thickened. 12. There is mild aortic regurgitation. 13. The mitral valve is normal. 14. The mitral valve leaflets are mildly thickened. 15. [id number]-lqtclk mitral regurgitation is present. 16. The tricuspid valve appears structurally normal. 17. Severe tricuspid regurgitation present. 18. There is moderate pulmonary hypertension. 19. The right ventricular systolic pressure, as measured by Doppler, is 61.29mmHg. 20. There is no pulmonic regurgitation present. 21. The aortic root size is normal. 22. The inferior vena cava is dilated with no significant inspiratory collapse which is consistent es timated right atrial pressure of >20 mmHg. 23. There is no pericardial effusion. CABLE TOWER OPERATOR: Quiana Nix RDCS
--- NOTE | 2020-02-19 12:33 | P.PN ---
Subjective Progress Note Date: 02/19/20 Principal diagnosis: Falls Patient is doing well, she still confused which is reportedly her baseline. No pain. No shortness of breath. However she is not a reliable historian. Objective - Vital Signs Vital signs: Vital Signs Temp 97.9 F 02/19/20 12:18 Pulse 82 02/19/20 12:18 Resp 17 02/19/20 12:18 BP 121/73 02/19/20 12:18 Pulse Ox 93 L 02/19/20 12:18 Intake & Output 02/18/20 02/19/20 02/19/20 18:59 06:59 18:59 Weight 90.718 kg 90.718 kg Other: Voiding Method Diaper Toilet Incontinent Diaper Incontinent # Voids 2 - Exam Constitutional: No acute distress, conversant, pleasant Eyes:Anicteric sclerae, moist conjunctiva, no lid-lag, PERRLA, ENMT: Oropharynx clear, no erythema, exudates Neck: Supple, FROM, no masses, or JVD, No carotid bruits, No thyromegaly Lungs: Clear to auscultation, Clear to percussion, Normal respiratory effort, no accessory muscle use Cardiovascular: Heart regular in rate and rhythm, No murmurs, gallops, or rubs, No peripheral edema Abdominal: Soft, Nontender, no guarding, rebound or rigidity, Normoactive bowel sounds, No hepatomegaly, No splenomegaly, No palpable mass Skin: Normal temperature, tone, texture, turgor, no induration, No subcutaneous nodules, No rash, lesions, No ulcers Extremities: No digital cyanosis, No clubbing, Pedal pulses intact and symmetrical, Radial pulses intact and symmetrical, No calf tenderness Neuro: Alert and oriented to person, not place and time, muscles Strength 5/5 in all 4 extremities, Sensation to light touch grossly present throughout, Cranial nerves II-XII grossly intact, no focal sensory deficits - Labs CBC & Chem 7: 02/19/20 06:59 02/19/20 06:59 Labs: Abnormal Lab Results - Last 24 Hours (Table) 02/18/20 02/18/20 02/18/20 Range/Units 12:58 12:58 12:58 Hct 46.7 H (34.0-46.0) % MCHC 30.8 L (31.0-37.0) g/dL Plt Count (150-450) k/uL PT 22.5 H (9.0-12.0) sec INR 2.3 H (<1.2) APTT 30.5 H (22.0-30.0) sec Potassium 3.4 L (3.5-5.1) mmol/L Carbon Dioxide (22-30) mmol/L Glucose 130 H (74-99) mg/dL Total Bilirubin 1.9 H (0.2-1.3) mg/dL Albumin 3.3 L (3.5-5.0) g/dL Urine Appearance (Clear) Urine Protein (Negative) Urine Blood (Negative) Calcium Oxalate Crystal (None) /hpf Urine Bacteria (None) /hpf Hyaline Casts (0-2) /lpf Urine Mucus (None) /hpf 02/18/20 02/19/20 02/19/20 Range/Units 17:32 06:59 06:59 Hct 46.5 H (34.0-46.0) % MCHC 29.7 L (31.0-37.0) g/dL Plt Count 143 L (150-450) k/uL PT 24.9 H (9.0-12.0) sec INR 2.6 H (<1.2) APTT (22.0-30.0) sec Potassium (3.5-5.1) mmol/L Carbon Dioxide (22-30) mmol/L Glucose (74-99) mg/dL Total Bilirubin (0.2-1.3) mg/dL Albumin (3.5-5.0) g/dL Urine Appearance Cloudy H (Clear) Urine Protein 1+ H (Negative) Urine Blood Trace H (Negative) Calcium Oxalate Crystal Rare H (None) /hpf Urine Bacteria Rare H (None) /hpf Hyaline Casts 22 H (0-2) /lpf Urine Mucus Many H (None) /hpf 02/19/20 Range/Units 06:59 Hct (34.0-46.0) % MCHC (31.0-37.0) g/dL Plt Count (150-450) k/uL PT (9.0-12.0) sec INR (<1.2) APTT (22.0-30.0) sec Potassium (3.5-5.1) mmol/L Carbon Dioxide 31 H (22-30) mmol/L Glucose (74-99) mg/dL Total Bilirubin 2.0 H (0.2-1.3) mg/dL Albumin 3.2 L (3.5-5.0) g/dL Urine Appearance (Clear) Urine Protein (Negative) Urine Blood (Negative) Calcium Oxalate Crystal (None) /hpf Urine Bacteria (None) /hpf Hyaline Casts (0-2) /lpf Urine Mucus (None) /hpf Assessment and Plan Plan: 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 Echo showing ejection fraction of less than 20%, grade 3 diastolic dysfunction, moderate pulmonary hypertension, severe MR and TR Add lisinopril to her medication regimen Continue metoprolol Continue lasix IV Atrial fibrillation Continue Coumadin for now Consider discontinuing it in the future if she continues to fall Adult failure to thrive/generalized weakness PT and OT Discussed with care management, currently making referrals for senior living placement which is her son's wish HTN Alzehiemer dementia Gout All stable resume meds I discussed her condition in detail today with her son, he knows that she has a bad heart and he does not wish to have any procedures done. He is okay with treating her with medications at this point. Anticipated discharge: 1-2 days Disposition: senior living, long-term placement
[2020-02-19] MEDS: LISINOPRIL 10 MG TAB PO SCH (13:08)
--- NOTE | 2020-02-19 13:25 | CDI ---
Documentation Clarification Form Date: 02/19/2020 01:18:12 PM From: Effie Mariee RN, CCDS Admit Date: 02/18/2020 03:46:00 PM Patient Name: Jacquelyn Marks Visit Number: [id number] ATTENTION: The Clinical Documentation Specialists (CDI) and [facility] Coding Staff appreciate your assistance in clarifying documentation. Please respond to the clarification below the line at the bottom and electronically sign. The CDI & [facility] Coding staff will review the response and follow-up if needed. Please note: Queries are made part of the Legal Health Record. If you have any questions, please contact the author of this message via ITS. Dr. Simmons Atrial Fibrillation is documented in the H&P & progress notes and requires further specificity. History/Risk Factors: HTN, Atrial Fib, Alzheimers Dementia Clinical Indicators: 02/17 H&P & 02/18 Progress Note: "Atrial fibrillation Continue Coumadin for now Consider discontinuing it in the future if she continues to fall." 02/17 EKG/telemetry: Atrial Fib Treatment: Toprol XL 25 mg PO HS Coumadin daily dosing In your professional opinion, can you please clarify the type of Atrial Fibrillation, if known? Chronic/Permanent Paroxysmal Persistent Other, please specify Unable to determine (Last Revision: December 2017) Chronic/Permanent MTDD
[2020-02-19] MEDS: WARFARIN 2 MG TAB PO SCH (20:08)
[2020-02-19] MEDS: METOPROLOL SUCCINATE (ER) 25 MG TAB.ER.24H PO SCH (20:08)
[2020-02-19] MEDS: ATORVASTATIN 10 MG TAB PO SCH (20:08)
[2020-02-20] MEDS: SODIUM CHLORIDE 0.9% 1,000 ML IV SCH ×2 (01:14→14:05)
[2020-02-20] MEDS: CYANOCOBALAMIN 500 MCG TAB PO SCH (06:29)
[2020-02-20] MEDS: MEMANTINE 10 MG TAB PO SCH ×2 (06:29→21:44)
[2020-02-20] MEDS: ALLOPURINOL 300 MG TAB PO SCH (06:29)
[2020-02-20] MEDS: DONEPEZIL 10 MG TAB PO SCH ×2 (06:29→21:43)
[2020-02-20] MEDS: METHYLPHENIDATE HCL 10 MG TAB PO SCH ×2 (06:29→13:53)
[2020-02-20] MEDS: CHOLECALCIFEROL 1,000 UNIT TAB PO SCH (06:31)
[2020-02-20 07:35] LABS: INR 3.2 (<1.2); Prothrombin Time 31.1 sec (9.0-12.0)
[2020-02-20 09:08] LABS: African American GFR (CKD) >90 (>60 ml/min/1.73 sqM); Anion Gap 4 mmol/L; Blood Urea Nitrogen 18 mg/dL (7-17); Calcium 7.9 mg/dL (8.4-10.2); Carbon Dioxide 28 mmol/L (22-30); Chloride 105 mmol/L (98-107); Glucose 88 mg/dL (74-99); Magnesium 1.4 mg/dL (1.6-2.3); Non-African American GFR(CKD) 85 (>60 ml/min/1.73 sqM); Potassium 3.3 mmol/L (3.5-5.1); Sodium 137 mmol/L (137-145)
[2020-02-20] MEDS: PANTOPRAZOLE 40 MG/10 ML VIAL IV SCH (09:52)
[2020-02-20] MEDS: FUROSEMIDE 10 MG/ML 4 ML VIAL IV SCH (09:52)
[2020-02-20] MEDS: LISINOPRIL 10 MG TAB PO SCH (09:54)
[2020-02-20] MEDS ORDERED: POTASSIUM CHLORIDE ER 20 MEQ TAB.ER PO STA (12:01)
--- NOTE | 2020-02-20 12:12 | P.DS ---
Providers Date of admission: 02/18/20 15:46 Expected date of discharge: 02/20/20 Attending physician: Gina Suarez MD Primary care physician: Juanjo Waldo Hospital Course: This is a 79-year-old female with past medical history noted below who presented to the emergency room with a mechanical fall. Patient was evaluated in the ER and admitted to the hospital for further management of her medical problems noted below. 1. Gait imbalance and mechanical fall. Computed tomography scan of the head and cervical spine in the ER with no acute findings. She was seen by PT/OT. Plan for subacute rehab at [facility]. 2. Acute systolic heart failure exacerbation, echocardiogram showed EF of 20%. Improved with IV Lasix. Transition back to oral Lasix. Follow-up with cardiology in the office as directed. 3. Underlying cardiomyopathy 4. Essential hypertension: Blood pressure on the lower side. 5. Hyperlipidemia 6. Chronic atrial fibrillation on anticoagulation with Coumadin. INR today of discharge 3.2. Hold Coumadin for today 02/19 and resume tomorrow. Check INR every other day and adjust Coumadin dose accordingly. Patient will be discharged to [facility] in a stable condition. For further details about this hospitalization please refer to the electronic chart. Patient Condition at Discharge: Fair Plan - Discharge Summary New Discharge Prescriptions: New Magnesium Oxide 400 mg PO DAILY #30 tablet Lisinopril [Zestril] 5 mg PO DAILY #30 tablet Continue Warfarin Sodium 6 mg PO YOO@1999 Warfarin Sodium 4 mg PO MOTUWETHFRSA@1999 Metoprolol Succinate [Toprol XL] 25 mg PO HS@1999 Cyanocobalamin [Vitamin B-12] 500 mcg PO DAILY@0600 Methylphenidate HCl [Ritalin] 10 mg PO BID@0600,1200 Memantine [Namenda] 10 mg PO BID@06,1999 Lovastatin [Mevacor] 20 mg PO HS@1999 Donepezil [Aricept] 10 mg PO BID@06,1999 Allopurinol [Zyloprim] 300 mg PO DAILY@0600 Cholecalciferol (Vitamin D3) [Vitamin D3] 2,000 unit PO DAILY@0600 Furosemide [Lasix] 40 mg PO DAILY@0600 Discharge Medication List Allopurinol [Zyloprim] 300 mg PO DAILY@0600 12/22/19 [History] Cholecalciferol (Vitamin D3) [Vitamin D3] 2,000 unit PO DAILY@0600 12/22/19 [History] Cyanocobalamin [Vitamin B-12] 500 mcg PO DAILY@0600 12/22/19 [History] Donepezil [Aricept] 10 mg PO BID@0600,199912/22/19 [History] Lovastatin [Mevacor] 20 mg PO HS@199912/22/19 [History] Memantine [Namenda] 10 mg PO BID@0600,199912/22/19 [History] Methylphenidate HCl [Ritalin] 10 mg PO BID@0600,1200 12/22/19 [History] Metoprolol Succinate [Toprol XL] 25 mg PO HS@199912/22/19 [History] Warfarin Sodium 4 mg PO MOTUWETHFRSA@199912/22/19 [History] Warfarin Sodium 6 mg PO YOO@199912/22/19 [History] Furosemide [Lasix] 40 mg PO DAILY@0600 02/18/20 [History] Lisinopril [Zestril] 5 mg PO DAILY #30 tablet 02/20/20 [Rx] Magnesium Oxide 400 mg PO DAILY #30 tablet 02/20/20 [Rx] Follow up Appointment(s)/Referral(s): Juanjo Lin MD [Primary Care Provider] - 1-2 days Discharge Disposition: TRANSFER TO SNF/ECF
[2020-02-20] MEDS: MAGNESIUM SULFATE-D5W PMX 1 GM in DEXTROSE/WATER 1 100ML.BAG IVPB SCH ×2 (13:55→15:43)
[2020-02-20] MEDS ORDERED: WARFARIN 2 MG TAB PO ONE (18:00)
[2020-02-20] MEDS: ATORVASTATIN 10 MG TAB PO SCH (21:43)
[2020-02-20] MEDS: METOPROLOL SUCCINATE (ER) 25 MG TAB.ER.24H PO SCH (21:44)
[2020-02-20] MEDS ORDERED: LORazepam 1 MG TAB PO STA (21:44)
[2020-02-21] MEDS: FUROSEMIDE 10 MG/ML 4 ML VIAL IV SCH ×3 (02:34→22:02)
[2020-02-21] MEDS: CHOLECALCIFEROL 1,000 UNIT TAB PO SCH (05:56)
[2020-02-21] MEDS: ALLOPURINOL 300 MG TAB PO SCH (05:56)
[2020-02-21] MEDS: METHYLPHENIDATE HCL 10 MG TAB PO SCH ×2 (05:57→13:07)
[2020-02-21] MEDS: DONEPEZIL 10 MG TAB PO SCH ×2 (05:57→21:28)
[2020-02-21] MEDS: MEMANTINE 10 MG TAB PO SCH ×2 (05:57→21:28)
[2020-02-21] MEDS: CYANOCOBALAMIN 500 MCG TAB PO SCH (05:57)
[2020-02-21 07:21] LABS: Prothrombin Time 29.5 sec (9.0-12.0)
[2020-02-21 08:46] LABS: African American GFR (CKD) >90 (>60 ml/min/1.73 sqM); Anion Gap 4 mmol/L; Blood Urea Nitrogen 14 mg/dL (7-17); Calcium 8.1 mg/dL (8.4-10.2); Carbon Dioxide 30 mmol/L (22-30); Chloride 103 mmol/L (98-107); Glucose 88 mg/dL (74-99); Magnesium 1.6 mg/dL (1.6-2.3); Non-African American GFR(CKD) >90 (>60 ml/min/1.73 sqM); Potassium 3.2 mmol/L (3.5-5.1); Sodium 137 mmol/L (137-145)
[2020-02-21] MEDS: LISINOPRIL 10 MG TAB PO SCH (09:33)
[2020-02-21] MEDS: PANTOPRAZOLE 40 MG/10 ML VIAL IV SCH (09:33)
[2020-02-21] MEDS ORDERED: POTASSIUM CHLORIDE ER 20 MEQ TAB.ER PO STA (09:49)
[2020-02-21] MEDS ORDERED: MAGNESIUM SULFATE-D5W PMX 1 GM in DEXTROSE/WATER 1 100ML.BAG IVPB SCH (10:00)
[2020-02-21] MEDS: MAGNESIUM OXIDE 400 MG TAB PO SCH ×2 (10:08→21:28)
--- NOTE | 2020-02-21 15:27 | P.PN ---
Subjective Progress Note Date: 02/21/20 Patient is doing well today. No acute events overnight. Objective - Vital Signs Vital signs: Vital Signs Temp 97.5 F L 02/21/20 13:07 Pulse 91 02/21/20 13:07 Resp 16 02/21/20 13:07 BP 135/79 02/21/20 13:07 Pulse Ox 92 L 02/21/20 13:07 Intake & Output 02/20/20 02/21/20 02/21/20 18:59 06:59 18:59 Intake Total 600 Balance 600 Intake: Oral 600 Other: Voiding Method Toilet Toilet Toilet Diaper Diaper Diaper Incontinent Incontinent Incontinent # Voids 2 1 4 - Exam General: The patient is awake and alert, in no distress Eye: there is normal conjunctiva bilaterally. Neck: The neck is supple, there is no JVD. Cardiovascular: Normal S1-S2, no S3-S4, no murmurs. Respiratory: Lungs clear to auscultation bilaterally Gastrointestinal: Abdomen is soft, nontender Musculoskeletal: There is no pedal edema. Neurological:. Speech is normal. Skin: Skin is warm and dry - Labs CBC & Chem 7: 02/19/20 06:59 02/21/20 06:33 Labs: Abnormal Lab Results - Last 24 Hours (Table) 02/21/20 02/21/20 Range/Units 06:33 06:33 PT 29.5 H (9.0-12.0) sec INR 3.0 H (<1.2) Potassium 3.2 L (3.5-5.1) mmol/L Calcium 8.1 L (8.4-10.2) mg/dL Assessment and Plan Assessment: This is a 79-year-old female with past medical history noted below who presented to the emergency room with a mechanical fall. Patient was evaluated in the ER and admitted to the hospital for further management of her medical problems noted below. 1. Gait imbalance and mechanical fall. Computed tomography scan of the head and cervical spine in the ER with no acute findings. She was seen by PT/OT. Plan for subacute rehab at [facility]. 2. Acute systolic heart failure exacerbation, echocardiogram showed EF of 20%. Improved with IV Lasix. Transition back to oral Lasix. Follow-up with cardiology in the office as directed. 3. Underlying cardiomyopathy 4. Essential hypertension: Blood pressure on the lower side. 5. Hyperlipidemia 6. Chronic atrial fibrillation on anticoagulation with Coumadin. Pharmacy to dose Awaiting insurance authorization to discharge to rehab
[2020-02-21] MEDS: FUROSEMIDE 40 MG TAB PO SCH (15:52)
[2020-02-21] MEDS ORDERED: WARFARIN 3 MG TAB PO ONE (18:00)
[2020-02-21] MEDS: METOPROLOL SUCCINATE (ER) 25 MG TAB.ER.24H PO SCH (21:28)
[2020-02-21] MEDS: ATORVASTATIN 10 MG TAB PO SCH (21:29)
[2020-02-22] MEDS: ACETAMINOPHEN TAB 325 MG TAB PO PRN ×2 (05:55→11:58)
[2020-02-22] MEDS: MEMANTINE 10 MG TAB PO SCH ×2 (06:13→06:14)
[2020-02-22] MEDS: ALLOPURINOL 300 MG TAB PO SCH (06:14)
[2020-02-22] MEDS: DONEPEZIL 10 MG TAB PO SCH ×2 (06:14→21:06)
[2020-02-22] MEDS: CYANOCOBALAMIN 500 MCG TAB PO SCH (06:14)
[2020-02-22] MEDS: CHOLECALCIFEROL 1,000 UNIT TAB PO SCH (06:14)
[2020-02-22] MEDS: METHYLPHENIDATE HCL 10 MG TAB PO SCH ×2 (06:20→11:38)
[2020-02-22 07:31] LABS: INR 2.5 (<1.2); Prothrombin Time 24.5 sec (9.0-12.0)
[2020-02-22 07:40] LABS: Calcium 8.6 mg/dL (8.4-10.2); Magnesium 1.8 mg/dL (1.6-2.3); Potassium 3.8 mmol/L (3.5-5.1)
[2020-02-22] MEDS: FUROSEMIDE 40 MG TAB PO SCH ×2 (08:01→16:23)
[2020-02-22] MEDS: MAGNESIUM OXIDE 400 MG TAB PO SCH ×2 (08:01→21:06)
[2020-02-22] MEDS: PANTOPRAZOLE 40 MG TABLET PO SCH (08:01)
[2020-02-22] MEDS: LISINOPRIL 10 MG TAB PO SCH (08:01)
--- NOTE | 2020-02-22 14:55 | P.PN ---
Subjective Patient is doing well today. No acute events overnight. Objective - Vital Signs Vital signs: Vital Signs Temp 97.2 F L 02/22/20 11:37 Pulse 86 02/22/20 11:37 Resp 17 02/22/20 11:37 BP 137/89 02/22/20 11:37 Pulse Ox 94 L 02/22/20 11:37 Intake & Output 02/21/20 02/22/20 02/22/20 18:59 06:59 18:59 Intake Total 600 1200 Balance 600 1200 Weight 87.5 kg Intake: Oral 600 1200 Other: Voiding Method Toilet Toilet Toilet Diaper Diaper Diaper Incontinent Incontinent Incontinent # Voids 4 2 - Exam General: The patient is awake and alert, in no distress Eye: there is normal conjunctiva bilaterally. Neck: The neck is supple, there is no JVD. Cardiovascular: Normal S1-S2, no S3-S4, no murmurs. Respiratory: Lungs clear to auscultation bilaterally Gastrointestinal: Abdomen is soft, nontender Musculoskeletal: There is no pedal edema. Neurological:. Speech is normal. Skin: Skin is warm and dry - Labs CBC & Chem 7: 02/19/20 06:59 02/22/20 06:53 Labs: Abnormal Lab Results - Last 24 Hours (Table) 02/22/20 02/22/20 Range/Units 06:53 06:53 PT 24.5 H (9.0-12.0) sec INR 2.5 H (<1.2) Carbon Dioxide 33 H (22-30) mmol/L Glucose 142 H (74-99) mg/dL Assessment and Plan Assessment: This is a 79-year-old female with past medical history noted below who presented to the emergency room with a mechanical fall. Patient was evaluated in the ER and admitted to the hospital for further management of her medical problems noted below. 1. Gait imbalance and mechanical fall. Computed tomography scan of the head and cervical spine in the ER with no acute findings. She was seen by PT/OT. Plan for subacute rehab at [facility]. 2. Acute systolic heart failure exacerbation, echocardiogram showed EF of 20%. Improved with IV Lasix. Transition back to oral Lasix. Follow-up with cardiology in the office as directed. 3. Underlying cardiomyopathy 4. Essential hypertension: Blood pressure on the lower side. 5. Hyperlipidemia 6. Chronic atrial fibrillation on anticoagulation with Coumadin. Pharmacy to dose Awaiting insurance authorization to discharge to rehab
[2020-02-22] MEDS ORDERED: WARFARIN 3 MG TAB PO ONE (18:00)
[2020-02-22] MEDS ORDERED: WARFARIN 3 MG TAB PO SCH (20:00)
[2020-02-22] MEDS: ATORVASTATIN 10 MG TAB PO SCH (21:06)
[2020-02-22] MEDS: METOPROLOL SUCCINATE (ER) 25 MG TAB.ER.24H PO SCH (21:18)
[2020-02-23] MEDS: METHYLPHENIDATE HCL 10 MG TAB PO SCH ×2 (06:08→11:34)
[2020-02-23] MEDS: DONEPEZIL 10 MG TAB PO SCH (06:08)
[2020-02-23] MEDS: CYANOCOBALAMIN 500 MCG TAB PO SCH (06:08)
[2020-02-23] MEDS: ALLOPURINOL 300 MG TAB PO SCH (06:08)
[2020-02-23] MEDS: CHOLECALCIFEROL 1,000 UNIT TAB PO SCH (06:08)
[2020-02-23 06:16] VITALS: RESP 20
[2020-02-23] MEDS: MEMANTINE 10 MG TAB PO SCH (06:18)
[2020-02-23 08:03] LABS: African American GFR (CKD) >90 (>60 ml/min/1.73 sqM); Anion Gap 5 mmol/L; Blood Urea Nitrogen 13 mg/dL (7-17); Calcium 8.6 mg/dL (8.4-10.2); Carbon Dioxide 35 mmol/L (22-30); Chloride 100 mmol/L (98-107); Glucose 110 mg/dL (74-99); Non-African American GFR(CKD) 89 (>60 ml/min/1.73 sqM); Potassium 3.9 mmol/L (3.5-5.1); Sodium 140 mmol/L (137-145)
[2020-02-23 08:09] LABS: INR 2.3 (<1.2); Prothrombin Time 22.7 sec (9.0-12.0)
[2020-02-23] MEDS: FUROSEMIDE 40 MG TAB PO SCH (08:48)
[2020-02-23] MEDS: PANTOPRAZOLE 40 MG TABLET PO SCH (08:49)
[2020-02-23] MEDS: LISINOPRIL 10 MG TAB PO SCH (08:49)
[2020-02-23] MEDS: MAGNESIUM OXIDE 400 MG TAB PO SCH (08:49)
[2020-02-23 14:08] VITALS: BP 124/91; PULSE 77; TEMP 97.5
--- NOTE | 2020-02-23 16:20 | P.DS ---
Providers Date of admission: 02/18/20 15:46 Expected date of discharge: 02/23/20 Attending physician: Gina Suarez MD Primary care physician: Juanjo [facility] Course: This is a 79-year-old female with past medical history noted below who presented to the emergency room with a mechanical fall. Patient was evaluated in the ER and admitted to the hospital for further management of her medical problems noted below. 1. Gait imbalance and mechanical fall. Computed tomography scan of the head and cervical spine in the ER with no acute findings. She was seen by PT/OT. Plan for subacute rehab at [facility]. 2. Acute systolic heart failure exacerbation, echocardiogram showed EF of 20%. Improved with IV Lasix. Transition back to oral Lasix. Follow-up with cardiology in the office as directed. 3. Underlying cardiomyopathy 4. Essential hypertension: Blood pressure on the lower side. 5. Hyperlipidemia 6. Chronic atrial fibrillation on anticoagulation with Coumadin. Pharmacy to dose Patient was discharged to [facility] in a stable condition. For further details about this hospitalization please refer to the electronic chart. Patient Condition at Discharge: Fair Plan - Discharge Summary New Discharge Prescriptions: New Magnesium Oxide 400 mg PO DAILY #30 tablet Lisinopril [Zestril] 5 mg PO DAILY #30 tablet Continue Warfarin Sodium 6 mg PO YOO@1999 Warfarin Sodium 4 mg PO MOTUWETHFRSA@1999 Metoprolol Succinate [Toprol XL] 25 mg PO HS@1999 Cyanocobalamin [Vitamin B-12] 500 mcg PO DAILY@0600 Memantine [Namenda] 10 mg PO BID@ Lovastatin [Mevacor] 20 mg PO HS@1999 Donepezil [Aricept] 10 mg PO BID@ Allopurinol [Zyloprim] 300 mg PO DAILY@0600 Cholecalciferol (Vitamin D3) [Vitamin D3] 2,000 unit PO DAILY@0600 Furosemide [Lasix] 40 mg PO DAILY@0600 Methylphenidate HCl [Ritalin] 10 mg PO BID@0600,1200 #6 tab Discharge Medication List Allopurinol [Zyloprim] 300 mg PO DAILY@0600 12/22/19 [History] Cholecalciferol (Vitamin D3) [Vitamin D3] 2,000 unit PO DAILY@0600 12/22/19 [History] Cyanocobalamin [Vitamin B-12] 500 mcg PO DAILY@0600 12/22/19 [History] Donepezil [Aricept] 10 mg PO BID@06,199912/22/19 [History] Lovastatin [Mevacor] 20 mg PO HS@199912/22/19 [History] Memantine [Namenda] 10 mg PO BID@0600,199912/22/19 [History] Metoprolol Succinate [Toprol XL] 25 mg PO HS@199912/22/19 [History] Warfarin Sodium 4 mg PO MOTUWETHFRSA@199912/22/19 [History] Warfarin Sodium 6 mg PO YOO@199912/22/19 [History] Furosemide [Lasix] 40 mg PO DAILY@0600 02/18/20 [History] Lisinopril [Zestril] 5 mg PO DAILY #30 tablet 02/20/20 [Rx] Magnesium Oxide 400 mg PO DAILY #30 tablet 02/20/20 [Rx] Methylphenidate HCl [Ritalin] 10 mg PO BID@0600,1200 #6 tab 02/20/20 [Rx] Follow up Appointment(s)/Referral(s): Juanjo Lin MD [Primary Care Provider] - 1-2 days (The office states they like their patients to make their own appointments please call to make your follow up appointment.) Discharge Disposition: TRANSFER TO SNF/ECF
[2020-02-23] MEDS ORDERED: WARFARIN 3 MG TAB PO ONE (18:00)
== END 2020-02-23 15:49 | DRG 292 ==
LOC: EC 12:12 → 5NMEDONC 15:46
PROVIDERS: ADMIT Family Medicine; ATTEND Family Medicine
DX: I11.0 Hypertensive heart disease with heart failure (principal); I48.20 Chronic atrial fibrillation, unspecified; I50.23 Acute on chronic systolic (congestive) heart failure; G30.9 Alzheimer's disease, unspecified; F02.80 Dementia in other diseases classified elsewhere, unspecified severity, without behavioral disturbance, psychotic disturbance, mood disturbance, and anxiety; E78.5 Hyperlipidemia, unspecified; I42.9 Cardiomyopathy, unspecified; M10.9 Gout, unspecified; R62.7 Adult failure to thrive; R26.9 Unspecified abnormalities of gait and mobility; W01.0XXA Fall on same level from slipping, tripping and stumbling without subsequent striking against object, initial encounter; R07.81 Pleurodynia; Z79.01 Long term (current) use of anticoagulants; Z79.899 Other long term (current) drug therapy; Z90.710 Acquired absence of both cervix and uterus; Z90.49 Acquired absence of other specified parts of digestive tract; Z11.59 Encounter for screening for other viral diseases; Z88.2 Allergy status to sulfonamides
CPT/HCPCS: 36415; 70450; 72125; 80048; 80053; 81001; 83735; 84100; 84484; 85025; 85610; 85730; 93005; 93306; 94760; 96361; 96374; 96375; 99285

== ENCOUNTER 2020-07-11 21:04 | Emergency (ER) | payer MEDICARE, OTHER ==
--- NOTE | 2020-07-11 21:31 | ED ---
Fall HPI - General Chief Complaint: Fall Stated Complaint: Fall Time Seen by Provider: 07/11/20 21:22 Source: EMS Mode of arrival: EMS - History of Present Illness Initial Comments: 80-year-old female presenting to emergency Department with a chief complaint of fall. Patient has severe dementia and is a and O 1 at baseline. Patient supposedly had a witnessed fall but the witness was not able to thoroughly explained how the patient fell down. Patient states she did fall but does not remember the exact mechanism. She doesn't remember if she hit her head. She denies any pain elsewhere. Patient is currently on Coumadin. Patient brought to the ED via EMS. - Related Data Home Medications Medication Instructions Recorded Confirmed Cholecalciferol (Vitamin D3) 2,000 unit PO DAILY@0600 12/22/19 02/18/20 [Vitamin D3] Cyanocobalamin [Vitamin B-12] 500 mcg PO DAILY@0612/22/19 02/18/20 Donepezil [Aricept] 10 mg PO BID@599,199912/22/19 02/18/20 Lovastatin [Mevacor] 20 mg PO HS@199912/22/19 02/18/20 Memantine [Namenda] 10 mg PO BID@0600,199912/22/19 02/18/20 Metoprolol Succinate [Toprol XL] 25 mg PO HS@199912/22/19 02/18/20 Warfarin Sodium 4 mg PO MOTUWETHFRSA@199912/22/19 02/18/20 Warfarin Sodium 6 mg PO YOO@199912/22/19 02/18/20 allopurinoL [Zyloprim] 300 mg PO DAILY@59912/22/19 02/18/20 Furosemide [Lasix] 40 mg PO DAILY@0600 02/18/20 02/18/20 Previous Rx's Medication Instructions Recorded Magnesium Oxide 400 mg PO DAILY #30 tablet 02/20/20 Methylphenidate HCl [Ritalin] 10 mg PO BID@0600,1200 #6 tab 02/20/20 lisinopriL [Zestril] 5 mg PO DAILY #30 tablet 02/20/20 Allergies Allergy/AdvReac Type Severity Reaction Status Date / Time sulfamethazine Allergy Unknown Verified 07/11/20 21:17 trimethoprim Allergy Unknown Verified 07/11/20 21:17 Review of Systems ROS Statement: Those systems with pertinent positive or pertinent negative responses have been documented in the HPI. ROS Other: All systems not noted in ROS Statement are negative. Past Medical History Past Medical History: Atrial Fibrillation, Heart Failure, Hypertension Additional Past Medical History / Comment(s): alhzeimer History of Any Multi-Drug Resistant Organisms: None Reported Past Surgical History: Cholecystectomy, Hernia Repair, Hysterectomy Past Psychological History: Unable to Obtain Smoking Status: Unknown if ever smoked Past Alcohol Use History: None Reported Past Drug Use History: None Reported - Past Family History Father Family Medical History: Unable to Obtain General Exam Limitations: altered mental status General appearance: alert, in no apparent distress Head exam: Present: atraumatic (Small scalp hematoma measuring approximately 3 cm in diameter on the left parietal region), normocephalic, normal inspection. Absent: other (Negative Morgan sign, raccoon eyes, hemotympanum.) Eye exam: Present: normal appearance, PERRL, EOMI. Absent: scleral icterus, conjunctival injection, nystagmus Pupils: Present: normal accommodation ENT exam: Present: normal exam, normal oropharynx, mucous membranes moist, TM's normal bilaterally, normal external ear exam Neck exam: Present: normal inspection, full ROM. Absent: tenderness, meningismus, lymphadenopathy Respiratory exam: Present: normal lung sounds bilaterally. Absent: respiratory distress, wheezes, rales Cardiovascular Exam: Present: regular rate, normal rhythm, normal heart sounds. Absent: bradycardia, tachycardia GI/Abdominal exam: Present: soft. Absent: distended, tenderness, guarding Extremities exam: Present: normal inspection, full ROM, normal capillary refill. Absent: tenderness, pedal edema, joint swelling, calf tenderness Back exam: Present: normal inspection, full ROM. Absent: tenderness, CVA tenderness (R), CVA tenderness (L), muscle spasm, paraspinal tenderness, vertebral tenderness Neurological exam: Present: alert, oriented X3, CN II-XII intact, normal gait Psychiatric exam: Present: normal affect, normal mood Skin exam: Present: warm, dry, intact, normal color Course Vital Signs 07/11/20 07/11/20 21:10 22:22 Temperature 98 F Pulse Rate 67 69 Respiratory 15 14 Rate Blood Pressure 112/65 126/92 O2 Sat by Pulse 94 L 92 L Oximetry Medical Decision Making - Medical Decision Making 80-year-old female presenting to emergency department with a chief complaint of a fall. Patient has severe dementia and is in attendance when at baseline. On physical examination patient has a scalp hematoma on the left parietal region. She did report some neck pain but this was not reproducible to palpation. Patient is on Coumadin. CBC unremarkable. INR 1.4. CMP unremarkable. Chest x-ray reveals a right perihilar mass that would need further CT imaging per radiology. This was also read demonstrator on the chest x-ray from [address] of the brain C-spine reveals no acute fractures, dislocations, intracranial hemorrhage, mass affect or midline shift. Patient will be discharged back to [facility]. Return parameters discussed. Case discussed with physician. - Lab Data Result diagrams: 07/11/20 21:37 07/11/20 21:37 Lab Results 07/11/20 07/11/20 07/11/20 Range/Units 21:37 21:37 21:37 WBC 5.8 (3.8-10.6) k/uL RBC 4.55 (3.80-5.40) m/uL Hgb 13.9 (11.4-16.0) gm/dL Hct 45.6 (34.0-46.0) % MCV 100.1 H (80.0-100.0) fL MCH 30.6 (25.0-35.0) pg MCHC 30.6 L (31.0-37.0) g/dL RDW 16.0 H (11.5-15.5) % Plt Count 145 L (150-450) k/uL Neutrophils % 58 % Lymphocytes % 29 % Monocytes % 5 % Eosinophils % 5 % Basophils % 0 % Neutrophils # 3.4 (1.3-7.7) k/uL Lymphocytes # 1.7 (1.0-4.8) k/uL Monocytes # 0.3 (0-1.0) k/uL Eosinophils # 0.3 (0-0.7) k/uL Basophils # 0.0 (0-0.2) k/uL Macrocytosis Slight PT 14.4 H (9.0-12.0) sec INR 1.4 H (<1.2) APTT 28.8 (22.0-30.0) sec Sodium 137 (137-145) mmol/L Potassium 4.2 (3.5-5.1) mmol/L Chloride 101 (98-107) mmol/L Carbon Dioxide 31 H (22-30) mmol/L Anion Gap 5 mmol/L BUN 18 H (7-17) mg/dL Creatinine 0.63 (0.52-1.04) mg/dL Est GFR (CKD-EPI)AfAm >90 (>60 ml/min/1.73 sqM) Est GFR (CKD-EPI)NonAf 86 (>60 ml/min/1.73 sqM) Glucose 144 H (74-99) mg/dL Calcium 9.1 (8.4-10.2) mg/dL Total Bilirubin 1.2 (0.2-1.3) mg/dL AST 33 (14-36) U/L ALT 14 (4-34) U/L Alkaline Phosphatase 163 H (38-126) U/L Total Protein 7.1 (6.3-8.2) g/dL Albumin 3.5 (3.5-5.0) g/dL Disposition Clinical Impression: Fall, Left parietal scalp hematoma Disposition: HOME SELF-CARE Condition: Stable Instructions (If sedation given, give patient instructions): Fall Prevention (ED) Additional Instructions: follow up for a primary care physician. Return to the department if symptoms worsen. Is patient prescribed a controlled substance at d/c from ED?: No Referrals: David Scott MD [Primary Care Provider] - 1-2 days Time of Disposition: 23:05
--- NOTE | 2020-07-11 22:01 | XR ---
EXAMINATION TYPE: XR chest 2V DATE OF EXAM: 07/11/2020 COMPARISON: Chest x-ray February 18, 2020. HISTORY: Weakness and fall. TECHNIQUE: Frontal and lateral views of the chest are obtained. FINDINGS: There is chronic parenchymal change without suspicious focal air space opacity, pleural ef fusion, or pneumothorax seen. The cardiac silhouette size is enlarged. Right hilar masslike prominen ce. The osseous structures are demineralized. IMPRESSION: Chronic changes and cardiomegaly without acute pulmonary process. Suspicious right hilar masslike prominence worrisome for mass or neoplasm. Advise CT follow-up.
--- NOTE | 2020-07-11 22:06 | CT ---
EXAMINATION TYPE: CT brain cspine wo con DATE OF EXAM: 07/11/2020 COMPARISON: CT brain and cervical spine February 18, 2020 HISTORY: Fall injury with headache and neck pain. CT DLP: 2365.9 mGycm. Automated Exposure Control for Dose Reduction was Utilized. TECHNIQUE: CT scan of the head and cervical spine are performed without contrast. FINDINGS: There is no acute intracranial hemorrhage or midline shift identified. Diffuse ventricula r and sulcal prominence. Low-attenuation in the deep and periventricular white matter. The calvarium is intact. The globes are intact and the visualized sinuses are clear. Cervical spine is visualized in its entirety from C1 through upper thoracic levels and demonstrates s table and satisfactory alignment without evidence of acute fracture or dislocation. Prevertebral sof t tissue appears within normal limits. The C1-C2 articulation is within normal limits on the coronal images. Vertebral body heights are maintained. Moderate disc space narrowing and spurring C5-C6 and C6-C7 levels. Spinal canal is preserved. Posterior spurring C5-C6 level effaces the anterior thecal sac. Posterior spur disc complex effaces the anterior thecal sac at C6-C7 level. Axial images we demo nstrate uncovertebral facet degenerative change left C4-C5 level causing moderate to severe left-side d neural foraminal narrowing and uncovertebral facet spurring bilaterally at C5-C6 and C6-C7 levels. There is partially calcified hypodense right lower pole thyroid nodule, image 9 redemonstrated. Consi sheree ultrasound follow-up. Lung apices show no pneumothorax. IMPRESSION: 1. There is no acute fracture or dislocation evident in the cervical spine. 2. No acute intracranial hemorrhage or midline shift is seen. Moderate diffuse cerebral atrophy and c hronic small vessel ischemic changes redemonstrated.
[2020-07-11 22:21] LABS: Basophils % (A) 0 %; Eosinophils # (A) 0.3 k/uL (0-0.7); Eosinophils % (A) 5 %; HCT 45.6 % (34.0-46.0); HGB 13.9 gm/dL (11.4-16.0); Lymphocytes # (A) 1.7 k/uL (1.0-4.8); Lymphocytes % (A) 29 %; MCH 30.6 pg (25.0-35.0); MCHC 30.6 g/dL (31.0-37.0); MCV 100.1 fL (80.0-100.0); Macrocytosis Slight; Mean Platelet Volume 9.7; Monocytes # (A) 0.3 k/uL (0-1.0); Monocytes % (A) 5 %; Neutrophils # (A) 3.4 k/uL (1.3-7.7); Neutrophils % (A) 58 %; Platelet Count 145 k/uL (150-450); RBC 4.55 m/uL (3.80-5.40); WBC 5.8 k/uL (3.8-10.6)
[2020-07-11 22:24] VITALS: PULSE 69
[2020-07-11 22:32] LABS: INR 1.4 (<1.2); Partial Thromboplastin Time 28.8 sec (22.0-30.0); Prothrombin Time 14.4 sec (9.0-12.0)
[2020-07-11 22:34] LABS: ALT 14 U/L (4-34); AST 33 U/L (14-36); African American GFR (CKD) >90 (>60 ml/min/1.73 sqM); Albumin 3.5 g/dL (3.5-5.0); Alkaline Phosphatase 163 U/L (38-126); Anion Gap 5 mmol/L; Blood Urea Nitrogen 18 mg/dL (7-17); Calcium 9.1 mg/dL (8.4-10.2); Carbon Dioxide 31 mmol/L (22-30); Chloride 101 mmol/L (98-107); Glucose 144 mg/dL (74-99); Non-African American GFR(CKD) 86 (>60 ml/min/1.73 sqM); Potassium 4.2 mmol/L (3.5-5.1); Sodium 137 mmol/L (137-145); Total Bilirubin 1.2 mg/dL (0.2-1.3); Total Protein 7.1 g/dL (6.3-8.2)
[2020-07-11 23:50] VITALS: BP 106/80; RESP 16; TEMP 98.2
== END 2020-07-12 00:03 | disposition home or self-care (01) ==
LOC: EC 21:04
DX: S00.03XA Contusion of scalp, initial encounter (principal); M54.2 Cervicalgia; G30.9 Alzheimer's disease, unspecified; F02.80 Dementia in other diseases classified elsewhere, unspecified severity, without behavioral disturbance, psychotic disturbance, mood disturbance, and anxiety; I11.0 Hypertensive heart disease with heart failure; I50.9 Heart failure, unspecified; I48.91 Unspecified atrial fibrillation; Z79.01 Long term (current) use of anticoagulants; Z88.1 Allergy status to other antibiotic agents; Z88.2 Allergy status to sulfonamides; W19.XXXA Unspecified fall, initial encounter
CPT/HCPCS: 36415; 70450; 71046; 72125; 80053; 85025; 85610; 85730; 99284

== ENCOUNTER 2020-08-27 00:39 | Inpatient (IN) | payer MEDICARE, OTHER ==
[2020-08-27] MEDS ORDERED: DEXAMETHASONE SOD PHOSPHATE 10 MG/ML 1 ML VIAL IV STA (00:57)
[2020-08-27] MEDS ORDERED: ACETAMINOPHEN TAB 325 MG TAB PO STA (00:57)
--- NOTE | 2020-08-27 01:02 | ED ---
SOB HPI - General Chief Complaint: Shortness of Breath Stated Complaint: +covid,FELECIA Time Seen by Provider: 08/27/20 00:43 Source: EMS Mode of arrival: EMS Limitations: altered mental status - History of Present Illness Initial Comments: 80 year-old female patient with past medical history significant for AFib, CHF, hypertension, and Dementia presents to the emergency department this evening from [facility] for evaluation of increased shortness of breath and chest discomfort. Patient was diagnosed with COVID-19 on 08/17/2020. Patient is a poor historian unable to contributing history. Patient did have fever at [facility]. She is currently on nonrebreather satting on 93% on room air. She does not appear to be labored though she is quite drowsy. Does answer questions appropriately. Patient denies any recent rash, abdominal pain, nausea, vomiting, diarrhea, constipation, back pain, numbness, tingling, dizziness, weakness, hematuria, dysuria, urinary urgency, urinary frequency, headache, visual changes, or any other complaints. - Related Data Home Medications Medication Instructions Recorded Confirmed Cholecalciferol (Vitamin D3) 2,000 unit PO DAILY@59912/22/19 02/18/20 [Vitamin D3] Cyanocobalamin [Vitamin B-12] 500 mcg PO DAILY@59912/22/19 02/18/20 Donepezil [Aricept] 10 mg PO BID@599,199912/22/19 02/18/20 Lovastatin [Mevacor] 20 mg PO HS@199912/22/19 02/18/20 Memantine [Namenda] 10 mg PO BID@06,199912/22/19 02/18/20 Metoprolol Succinate [Toprol XL] 25 mg PO HS@199912/22/19 02/18/20 Warfarin Sodium 4 mg PO MOTUWETHFRSA@199912/22/19 02/18/20 Warfarin Sodium 6 mg PO YOO@199912/22/19 02/18/20 allopurinoL [Zyloprim] 300 mg PO DAILY@00 12/22/19 02/18/20 Furosemide [Lasix] 40 mg PO DAILY@0600 02/18/20 02/18/20 Previous Rx's Medication Instructions Recorded Magnesium Oxide 400 mg PO DAILY #30 tablet 02/20/20 Methylphenidate HCl [Ritalin] 10 mg PO BID@0600,1200 #6 tab 02/20/20 lisinopriL [Zestril] 5 mg PO DAILY #30 tablet 02/20/20 Allergies Allergy/AdvReac Type Severity Reaction Status Date / Time sulfamethazine Allergy Unknown Verified 07/11/20 21:17 trimethoprim Allergy Unknown Verified 07/11/20 21:17 Review of Systems ROS Statement: Those systems with pertinent positive or pertinent negative responses have been documented in the HPI. ROS Other: All systems not noted in ROS Statement are negative. Past Medical History Past Medical History: Atrial Fibrillation, Heart Failure, Hypertension Additional Past Medical History / Comment(s): alhzeimer History of Any Multi-Drug Resistant Organisms: None Reported Past Surgical History: Cholecystectomy, Hernia Repair, Hysterectomy Past Psychological History: Unable to Obtain Smoking Status: Unknown if ever smoked Past Alcohol Use History: None Reported Past Drug Use History: None Reported - Past Family History Father Family Medical History: Unable to Obtain General Exam Limitations: altered mental status General appearance: in no apparent distress, other (This is a well-developed, well-nourished elderly female patient in mild respiratory distress. Vital signs upon presentation are temperature 99.8F, pulse 99, respirations 20, blood pressure 111/73, pulse ox 91% on 15 L via nonrebreather.) Eye exam: Present: normal appearance, PERRL, EOMI. Absent: scleral icterus, conjunctival injection, periorbital swelling Respiratory exam: Present: decreased breath sounds (Left side). Absent: respiratory distress, wheezes, rales, rhonchi, stridor Cardiovascular Exam: Present: regular rate, normal rhythm, normal heart sounds. Absent: systolic murmur, diastolic murmur, rubs, gallop, clicks GI/Abdominal exam: Present: soft, normal bowel sounds. Absent: distended, tenderness, guarding, rebound, rigid Neurological exam: Present: alert, oriented X3, CN II-XII intact Psychiatric exam: Present: normal affect, normal mood Skin exam: Present: warm, dry, intact, normal color. Absent: rash Course Vital Signs 08/27/20 08/27/20 00:44 02:11 Temperature 99.8 F H 98.9 F Pulse Rate 99 90 Respiratory 20 19 Rate Blood Pressure 111/73 98/50 O2 Sat by Pulse 91 L 95 Oximetry Medical Decision Making - Medical Decision Making 80-year-old female patient past medical history significant for A. fib, heart failure, hypertension, Alzheimer's presents to the emergency department today for evaluation of low oxygen saturations. She was diagnosed with COVID-19 on 08/17/2020. She arrives somewhat drowsy with oxygen saturation around 90% on 15 L via nonrebreather. She does have an active DNR order with hospitalization. Labs reviewed and did reveal INR 1.5, d-dimer 1.33. Sodium 136. BUN 31. Total bili 2.0, AST 45. LDH is 1038. C-reactive protein 163.5. Patient's oxygen saturation did improve to 95% on 15 L via nonrebreather. She is resting comfortably in bed. We'll admit to the hospital for further evaluation. We'll start dexamethasone. - Lab Data Result diagrams: 08/27/20 01:09 08/27/20 01:09 Lab Results 08/27/20 08/27/20 08/27/20 Range/Units 01:09 01:09 01:09 WBC 8.1 (3.8-10.6) k/uL RBC 5.10 (3.80-5.40) m/uL Hgb 16.0 (11.4-16.0) gm/dL Hct 48.3 H (34.0-46.0) % MCV 94.6 D (80.0-100.0) fL MCH 31.3 (25.0-35.0) pg MCHC 33.1 (31.0-37.0) g/dL RDW 14.6 (11.5-15.5) % Plt Count 127 L (150-450) k/uL MPV 9.1 Neutrophils % 86 % Lymphocytes % 9 % Monocytes % 3 % Eosinophils % 0 % Basophils % 1 % Neutrophils # 6.9 (1.3-7.7) k/uL Lymphocytes # 0.7 L (1.0-4.8) k/uL Monocytes # 0.3 (0-1.0) k/uL Eosinophils # 0.0 (0-0.7) k/uL Basophils # 0.1 (0-0.2) k/uL PT 15.0 H (9.0-12.0) sec INR 1.5 H (<1.2) APTT 30.6 H (22.0-30.0) sec D-Dimer 1.33 H (<0.60) mg/L FEU Sodium 136 L (137-145) mmol/L Potassium 3.9 (3.5-5.1) mmol/L Chloride 99 (98-107) mmol/L Carbon Dioxide 34 H (22-30) mmol/L Anion Gap 3 mmol/L BUN 31 H (7-17) mg/dL Creatinine 0.75 (0.52-1.04) mg/dL Est GFR (CKD-EPI)AfAm 88 (>60 ml/min/1.73 sqM) Est GFR (CKD-EPI)NonAf 77 (>60 ml/min/1.73 sqM) Glucose 123 H (74-99) mg/dL Plasma Lactic Acid Collin (0.7-2.0) mmol/L Calcium 8.2 L (8.4-10.2) mg/dL Magnesium 2.0 (1.6-2.3) mg/dL Total Bilirubin 2.0 H (0.2-1.3) mg/dL AST 45 H (14-36) U/L ALT 22 (4-34) U/L Alkaline Phosphatase 108 (38-126) U/L Lactate Dehydrogenase 1038 H (313-618) U/L C-Reactive Protein 163.5 H (<10.0) mg/L Total Protein 6.5 (6.3-8.2) g/dL Albumin 3.2 L (3.5-5.0) g/dL 08/27/20 Range/Units 01:09 WBC (3.8-10.6) k/uL RBC (3.80-5.40) m/uL Hgb (11.4-16.0) gm/dL Hct (34.0-46.0) % MCV (80.0-100.0) fL MCH (25.0-35.0) pg MCHC (31.0-37.0) g/dL RDW (11.5-15.5) % Plt Count (150-450) k/uL MPV Neutrophils % % Lymphocytes % % Monocytes % % Eosinophils % % Basophils % % Neutrophils # (1.3-7.7) k/uL Lymphocytes # (1.0-4.8) k/uL Monocytes # (0-1.0) k/uL Eosinophils # (0-0.7) k/uL Basophils # (0-0.2) k/uL PT (9.0-12.0) sec INR (<1.2) APTT (22.0-30.0) sec D-Dimer (<0.60) mg/L FEU Sodium (137-145) mmol/L Potassium (3.5-5.1) mmol/L Chloride (98-107) mmol/L Carbon Dioxide (22-30) mmol/L Anion Gap mmol/L BUN (7-17) mg/dL Creatinine (0.52-1.04) mg/dL Est GFR (CKD-EPI)AfAm (>60 ml/min/1.73 sqM) Est GFR (CKD-EPI)NonAf (>60 ml/min/1.73 sqM) Glucose (74-99) mg/dL Plasma Lactic Acid Collin 1.8 (0.7-2.0) mmol/L Calcium (8.4-10.2) mg/dL Magnesium (1.6-2.3) mg/dL Total Bilirubin (0.2-1.3) mg/dL AST (14-36) U/L ALT (4-34) U/L Alkaline Phosphatase (38-126) U/L Lactate Dehydrogenase (313-618) U/L C-Reactive Protein (<10.0) mg/L Total Protein (6.3-8.2) g/dL Albumin (3.5-5.0) g/dL - EKG Data -: EKG Interpreted by Me EKG Comments: EKG obtained at 01 100 shows A. fib with RVR with an incomplete left bundle branch block. Ventricular rate is 110, QRS duration 112, QT 374, QTc 506. - Radiology Data Radiology results: report reviewed, image reviewed Interpreted by me: One view x-ray of the chest was obtained. Report was reviewed in its entirety. Impression by Dr. Richardson shows left infiltrates. Disposition Clinical Impression: Pneumonia due to COVID-19 virus, Hypoxia Disposition: ADMITTED IP TO THIS [facility] Condition: Serious Referrals: David Scott MD [Primary Care Provider] - 1-2 days Decision to Admit Reason: Admit from EC Decision Date: 08/27/20 Decision Time: 02:21
[2020-08-27 01:24] LABS: Basophils # (A) 0.1 k/uL (0-0.2); Basophils % (A) 1 %; Eosinophils % (A) 0 %; HCT 48.3 % (34.0-46.0); Lymphocytes # (A) 0.7 k/uL (1.0-4.8); Lymphocytes % (A) 9 %; MCH 31.3 pg (25.0-35.0); MCHC 33.1 g/dL (31.0-37.0); Mean Platelet Volume 9.1; Monocytes # (A) 0.3 k/uL (0-1.0); Monocytes % (A) 3 %; Neutrophils # (A) 6.9 k/uL (1.3-7.7); Neutrophils % (A) 86 %; Platelet Count 127 k/uL (150-450); RDW 14.6 % (11.5-15.5); WBC 8.1 k/uL (3.8-10.6)
[2020-08-27 01:39] LABS: Albumin 3.2 g/dL (3.5-5.0); Calcium 8.2 mg/dL (8.4-10.2); Potassium 3.9 mmol/L (3.5-5.1); Total Protein 6.5 g/dL (6.3-8.2)
--- NOTE | 2020-08-27 01:46 | XR ---
EXAM: XR Chest, 1 View CLINICAL HISTORY: : Suspected COVID-19 pneumonia TECHNIQUE: Frontal view of the chest. COMPARISON: July 11, 2020. FINDINGS: Lungs: There are infiltrates in the mid and lower left chest which are new from the prior study. Pleural space: Unremarkable. No pneumothorax or pleural fluid. Heart: Cardiomegaly. Mediastinum: Unremarkable. Bones/joints: No acute findings. IMPRESSION: Left infiltrates.
[2020-08-27 01:52] LABS: C Reactive Protein 163.5 mg/L (<10.0)
[2020-08-27 01:54] LABS: INR 1.5 (<1.2); Partial Thromboplastin Time 30.6 sec (22.0-30.0)
[2020-08-27 02:00] LABS: MCV 94.6 fL (80.0-100.0)
[2020-08-27 02:02] LABS: D-Dimer 1.33 mg/L FEU (<0.60)
[2020-08-27] MEDS ORDERED: ACETAMINOPHEN TAB 325 MG TAB PO PRN (02:17)
[2020-08-27] MEDS ORDERED: NALOXONE 0.4 MG/ML 1 ML VIAL IV PRN (02:17)
[2020-08-27] MEDS ORDERED: ENOXAPARIN 40 MG/0.4 ML SYRINGE SQ STA (05:39)
[2020-08-27] MEDS: FUROSEMIDE 40 MG TAB PO SCH (05:55)
[2020-08-27] MEDS: CYANOCOBALAMIN 500 MCG TAB PO SCH (05:55)
[2020-08-27] MEDS: DONEPEZIL 10 MG TAB PO SCH ×2 (05:55→19:47)
[2020-08-27] MEDS: PANTOPRAZOLE 40 MG TABLET PO SCH (05:55)
[2020-08-27] MEDS: MEMANTINE 10 MG TAB PO SCH ×2 (05:55→19:47)
[2020-08-27] MEDS: allopurinoL 300 MG TAB PO SCH (05:55)
[2020-08-27] MEDS: METHYLPHENIDATE HCL 10 MG TAB PO SCH ×2 (05:55→14:41)
[2020-08-27] MEDS: CHOLECALCIFEROL 1,000 UNIT TAB PO SCH (06:17)
[2020-08-27 08:05] LABS: Basophils % (A) 0 %; Eosinophils % (A) 0 %; HGB 16.2 gm/dL (11.4-16.0); Lymphocytes # (A) 0.4 k/uL (1.0-4.8); Lymphocytes % (A) 5 %; MCH 31.9 pg (25.0-35.0); MCV 96.5 fL (80.0-100.0); Mean Platelet Volume 9.3; Monocytes # (A) 0.2 k/uL (0-1.0); Monocytes % (A) 2 %; Neutrophils # (A) 7.5 k/uL (1.3-7.7); Neutrophils % (A) 92 %; Platelet Count 129 k/uL (150-450); RBC 5.08 m/uL (3.80-5.40); RDW 14.7 % (11.5-15.5); WBC 8.1 k/uL (3.8-10.6)
[2020-08-27 08:09] LABS: D-Dimer 0.97 mg/L FEU (<0.60); INR 1.5 (<1.2); Prothrombin Time 14.9 sec (9.0-12.0)
[2020-08-27 08:29] LABS: ALT 22 U/L (4-34); AST 52 U/L (14-36); African American GFR (CKD) >90 (>60 ml/min/1.73 sqM); Albumin 3.2 g/dL (3.5-5.0); Alkaline Phosphatase 96 U/L (38-126); Anion Gap 5 mmol/L; Blood Urea Nitrogen 31 mg/dL (7-17); Calcium 8.2 mg/dL (8.4-10.2); Carbon Dioxide 29 mmol/L (22-30); Chloride 103 mmol/L (98-107); Glucose 181 mg/dL (74-99); Non-African American GFR(CKD) 88 (>60 ml/min/1.73 sqM); Potassium 4.7 mmol/L (3.5-5.1); Sodium 137 mmol/L (137-145); Total Protein 6.7 g/dL (6.3-8.2)
[2020-08-27 09:33] LABS: Ferritin 886.4 ng/mL (10.0-291.0)
[2020-08-27] MEDS: DEXAMETHASONE SOD PHOSPHATE 10 MG/ML 1 ML VIAL IV SCH (10:07)
[2020-08-27] MEDS: MAGNESIUM OXIDE 400 MG TAB PO SCH (10:07)
[2020-08-27] MEDS: lisinopriL 5 MG TAB PO SCH (10:07)
--- NOTE | 2020-08-27 11:21 | P.HPIM ---
History of Present Illness This is 80-year-old female patient of Dr. Scott, with a past medical history of advanced dementia, hypertension, atrial fibrillation, and congestive heart failure. She is a longterm resident at [facility]. During routine testing last week at [facility] patient tested positive for COVID on 08/17. Patient was doing well without significant symptoms. Apparently last night the nurse had noted her to be in respiratory distress with hypoxia and she developed a fever. At that point she was transferred to the hospital. Upon arrival, temperature was 99.8 and she was 91% on a nonrebreather. Chest x-ray showed infiltrates in the mid and lower left chest. Labs showed WBC 8.1, hemoglobin 6.2, platelet 129, d-dimer 0.97, BUN 31, creatinine 0.59, alk phos 96, LDH 1038, C-reactive protein 163.5. Patient was started on dexamethasone 6 mg IV. Blood cultures obtained and pulmonary consulted. Review of Systems Constitutional: Reports chills, Reports fatigue, Reports fever Ears, nose, mouth and throat: Denies headache, Denies nasal congestion, Denies nasal discharge, Denies sinus pain, Denies sinus pressure, Denies sore throat Cardiovascular: Reports dyspnea on exertion, Reports shortness of breath, Denies chest pain, Denies lightheadedness, Denies orthopnea, Denies palpitations, Denies syncope Respiratory: Reports congestion, Reports cough, Reports dyspnea, Denies pain Gastrointestinal: Reports loss of appetite, Denies abdominal pain, Denies constipation, Denies diarrhea, Denies nausea, Denies vomiting Genitourinary: Denies hematuria, Denies nocturia, Denies urgency, Denies urinary frequency Musculoskeletal: Reports frequent falls, Reports muscle weakness, Denies arm numbness/tingling, Denies fractures Integumentary: Denies growths, Denies lesions, Denies pruritus, Denies rash, Denies wounds Neurological: Reports confusion, Denies numbness, Denies syncope Psychiatric: Reports confusion, Reports memory loss, Denies depression, Denies mood swings, Denies paranoia, Denies suicidal ideation Past Medical History Past Medical History: No Reported History, Atrial Fibrillation, Heart Failure, Dementia, Hyperlipidemia, Hypertension Additional Past Medical History / Comment(s): alzheimer's, gout, falls History of Any Multi-Drug Resistant Organisms: None Reported Past Surgical History: Cholecystectomy, Hernia Repair, Hysterectomy Past Anesthesia/Blood Transfusion Reactions: Unable to Obtain Past Psychological History: Anxiety Smoking Status: Unknown if ever smoked Past Alcohol Use History: None Reported Past Drug Use History: None Reported - Past Family History Father Family Medical History: Unable to Obtain Medications and Allergies Home Medications Medication Instructions Recorded Confirmed Type Cyanocobalamin [Vitamin B-12] 500 mcg PO DAILY@1700 12/22/19 08/27/20 History Lovastatin [Mevacor] 20 mg PO HS@209912/22/19 08/27/20 History Memantine [Namenda] 10 mg PO BID@0800,2100 12/22/19 08/27/20 History allopurinoL [Zyloprim] 300 mg PO DAILY@0600 12/22/19 08/27/20 History Furosemide [Lasix] 40 mg PO BID@0800,1700 02/18/20 08/27/20 History Magnesium Oxide 400 mg PO DAILY #30 tablet 02/20/20 08/27/20 Rx lisinopriL [Zestril] 5 mg PO DAILY #30 tablet 02/20/20 08/27/20 Rx Acetaminophen [Tylenol Arthritis] 650 mg PO Q4H PRN 08/27/20 08/27/20 History Ascorbic Acid [Vitamin C] 1,000 mg PO DAILY@0800 08/27/20 08/27/20 History Cholecalciferol [Vitamin D3 (25 1,000 unit PO DAILY@0800 08/27/20 08/27/20 History Mcg = 1000 Iu)] Cholecalciferol [Vitamin D3 (25 2,000 unit PO DAILY 08/27/20 08/27/20 History Mcg = 1000 Iu)] Ipratropium-Albuterol Nebulize 3 ml INHALATION RT-Q6H PRN 08/27/20 08/27/20 History [Duoneb 0.5 mg-3 mg/3 ml Soln] LORazepam [Ativan] 0.5 mg PO TID@0800,1200,1700 08/27/20 08/27/20 History Lactose-Reduced Food [Ensure Plus] 1 can PO TID@0800,1200,1700 08/27/20 08/27/20 History Magic Cup 1 can PO BID@1200,1700 08/27/20 08/27/20 History Magnesium Hydroxide [Milk of 2,400 mg PO DAILY PRN 08/27/20 08/27/20 History Magnesia] Melatonin 5 mg PO HS@2100 08/27/20 08/27/20 History Metoprolol Tartrate [Lopressor] 25 mg PO BID@0800,1700 08/27/20 08/27/20 History Mirtazapine [Remeron] 15 mg PO HS@2100 08/27/20 08/27/20 History Na Phos,M-B/Na Phos,Di-Ba [Fleet 133 ml RECTAL DAILY PRN 08/27/20 08/27/20 History Adult] Polyethylene Glycol 3350 [Miralax] 17 gm PO DAILY@0800 08/27/20 08/27/20 History Sennosides/Docusate Sodium [Senna 1 tab PO BID@0800,1700 08/27/20 08/27/20 History Plus 8.6-50 mg Softgel] Valproic Acid Oral Soln [Depakene 250 mg PO BID@0800,1700 08/27/20 08/27/20 History Syrup] Warfarin Sodium [Jantoven] 5 mg PO DAILY@1630 08/27/20 08/27/20 History Zinc Sulfate 220 mg PO DAILY@0800 08/27/20 08/27/20 History bisacodyL [Dulcolax] 10 mg RECTAL DAILY PRN 08/27/20 08/27/20 History guaiFENesin [guaiFENesin Oral 200 mg PO Q4H PRN 08/27/20 08/27/20 History Solution] traZODone HCL 100 mg PO HS@2100 08/27/20 08/27/20 History Allergies Allergy/AdvReac Type Severity Reaction Status Date / Time sulfamethazine Allergy Unknown Verified 08/27/20 07:57 trimethoprim Allergy Unknown Verified 08/27/20 07:57 Physical Exam Vitals: Vital Signs Temp Pulse Pulse Resp BP BP Pulse Ox 08/27/20 04:16 99.0 F 101 H 22 111/79 99 08/27/20 02:11 98.9 F 90 19 98/50 95 08/27/20 00:44 99.8 F H 99 20 111/73 91 L Intake and Output 08/26/20 08/27/20 08/27/20 22:59 06:59 14:59 Intake Total 0 Balance 0 Intake: Oral 0 Other: # Voids 1 0 # Bowel Movements 0 Weight 84 kg - Constitutional General appearance: average body habitus, cooperative, mild distress - EENT Eyes: PERRLA, normal appearance ENT: hearing grossly normal, normal oropharynx - Neck Neck: no lymphadenopathy, normal ROM, no stridor, no thyromegaly - Respiratory Respiratory: left: diminished, negative: dullness, rales, rhonchi, wheezing - Cardiovascular Rhythm: irregularly irregular Heart sounds: normal: S1, S2 - Gastrointestinal General gastrointestinal: normal bowel sounds, no organomegaly, soft, no splenomegaly, no tenderness - Neurologic Neurologic: CNII-XII intact - Musculoskeletal Musculoskeletal: generalized weakness, strength equal bilaterally - Psychiatric confusion Results CBC & Chem 7: 08/28/20 07:16 08/27/20 07:06 Labs: Abnormal Lab Results - Last 24 Hours (Table) 08/27/20 08/27/20 08/27/20 Range/Units 01:09 01:09 01:09 Hgb (11.4-16.0) gm/dL Hct 48.3 H (34.0-46.0) % Plt Count 127 L (150-450) k/uL Lymphocytes # 0.7 L (1.0-4.8) k/uL PT 15.0 H (9.0-12.0) sec INR 1.5 H (<1.2) APTT 30.6 H (22.0-30.0) sec D-Dimer 1.33 H (<0.60) mg/L FEU Sodium 136 L (137-145) mmol/L Carbon Dioxide 34 H (22-30) mmol/L BUN 31 H (7-17) mg/dL Glucose 123 H (74-99) mg/dL Calcium 8.2 L (8.4-10.2) mg/dL Ferritin 886.4 H (10.0-291.0) ng/mL Total Bilirubin 2.0 H (0.2-1.3) mg/dL AST 45 H (14-36) U/L Lactate Dehydrogenase 1038 H (313-618) U/L C-Reactive Protein 163.5 H (<10.0) mg/L Albumin 3.2 L (3.5-5.0) g/dL 1208/27/20 08/27/20 Range/Units 07:06 07:06 07:06 Hgb 16.2 H (11.4-16.0) gm/dL Hct 49.0 H (34.0-46.0) % Plt Count 129 L (150-450) k/uL Lymphocytes # 0.4 L (1.0-4.8) k/uL PT 14.9 H (9.0-12.0) sec INR 1.5 H (<1.2) APTT (22.0-30.0) sec D-Dimer 0.97 H (<0.60) mg/L FEU Sodium (137-145) mmol/L Carbon Dioxide (22-30) mmol/L BUN 31 H (7-17) mg/dL Glucose 181 H (74-99) mg/dL Calcium 8.2 L (8.4-10.2) mg/dL Ferritin (10.0-291.0) ng/mL Total Bilirubin 2.0 H (0.2-1.3) mg/dL AST 52 H (14-36) U/L Lactate Dehydrogenase (313-618) U/L C-Reactive Protein (<10.0) mg/L Albumin 3.2 L (3.5-5.0) g/dL Assessment and Plan Plan: 1. Acute hypoxic respiratory failure. Patient started on dexamethasone 6 mg IV push daily, pulmonary consulted. 2. COVID19 pneumonia. Started on dexamethasone 6 mg IV push, pulmonary on consult. 3. Chronic systolic and diastolic congestive heart failure. Last echocardiogram was February of 2020, showed ejection fraction of less than 20% with grade 3 diastolic dysfunction. Continue Lasix 40 mg daily, lisinopril 5 mg daily, and metoprolol 25 mg daily. 4. Chronic atrial fibrillation. Continue metoprolol 25 mg daily along with Coumadin 5. Hypertension. Continue lisinopril 5 mg daily and metoprolol 25 mg daily 6. Hyperlipidemia. Continue atorvastatin 10 mg daily. 7. Advanced dementia. Continue donepezil 10 mg twice a day and Namenda 10 mg twice a day. 8. Gout. Continue allopurinol 300 mg daily. 9. GI prophylaxis continue pantoprazole 40 mg daily 10. DVT prophylaxis continue Coumadin The above impression and plan of care have been discussed and directed by signing physician. Yadi Balderas nurse practitioner acting as scribe for signing physician.
[2020-08-27 12:21] LABS: Erythrocyte Sedimentation Rate 31 mm/hr (0-20)
--- NOTE | 2020-08-27 14:56 | P.CNPUL ---
History of Present Illness Consult date: 08/27/20 Requesting physician: David Scott Reason for consult: dyspnea, other Chief complaint: Shortness of breath, altered mental status History of present illness: 80-year-old white female patient who is a poor historian, has a history of Alzheimer's dementia resides at [facility] and rehab was brought into the hospital on 08/27/2020 for evaluation of increased shortness of breath and chest discomfort and altered mental status. Patient was diagnosed with COVID 19 on 08/17/2020. She did have a fever at the [facility]. She was placed on 100% nonrebreather with O2 sat of 93%. Appeared to be quite drowsy however did not seem to be in any respiratory distress. NO history of nausea vomiting or alfredito rrhea, no history of abdominal pain. Chest x-ray shows infiltrates in the mid and lower left chest that are new from her previous chest x-ray on 07/11/2020. EKG showed A. fib with RVR with a rate of 110 BPM, incomplete left bundle branch block and nonspecific ST and T wave abnormalities. Did have a low-grade fever on presentation with a temp of 99.8F. Currently remains on 15 L of oxygen, she is very confused, she frequently removes her oxygen, and becomes more confused, her pulse ox on 15 L is 99%, slightly tachycardic with a rate of 100-104 BPM, blood pressure is 107/66. She is mildly tachypneic, but appears to be in no acute distress, no cough, lung sounds are diminished, with some basilar crackles, appears to be quite comfortable, abdomen is soft, is quite confused, she is not able to provide any history. Today's labs have been reviewed showing white blood cell count 8.1, hemoglobin of 16.2, platelet count of 129, she is lymphopenic with a lymphocyte count of 0.4, INR 1.5, d-dimer was 1.3 on initial set of blood work, down to 0.9 on today's labs, electrolytes are within normal limits, BUN of 31 creatinine 0.59, lactic acid of 1.8, ferritin is 886, LDH was 1038, CRP was 163, pro-calcitonin level was 4.8. Patient was started on IV steroids with dexamethasone 6 mg daily, Coumadin, she did receive a dose of Lovenox. Review of Systems All systems: negative Constitutional: Denies chills, Denies fever Eyes: denies blurred vision, denies pain Ears, nose, mouth and throat: Denies headache, Denies sore throat Cardiovascular: Denies chest pain, Denies shortness of breath Respiratory: Reports dyspnea, Denies cough Gastrointestinal: Denies abdominal pain, Denies diarrhea, Denies nausea, Denies vomiting Genitourinary: Denies dysuria, Denies hematuria Musculoskeletal: Denies myalgias Integumentary: Denies pruritus, Denies rash Neurological: Denies numbness, Denies weakness Psychiatric: Denies anxiety, Denies depression Endocrine: Denies fatigue, Denies weight change Past Medical History Past Medical History: No Reported History, Atrial Fibrillation, Heart Failure, Dementia, Hyperlipidemia, Hypertension Additional Past Medical History / Comment(s): alzheimer's, gout, falls History of Any Multi-Drug Resistant Organisms: None Reported Past Surgical History: Cholecystectomy, Hernia Repair, Hysterectomy Past Anesthesia/Blood Transfusion Reactions: Unable to Obtain Past Psychological History: Anxiety Smoking Status: Unknown if ever smoked Past Alcohol Use History: None Reported Past Drug Use History: None Reported - Past Family History Father Family Medical History: Unable to Obtain Medications and Allergies Home Medications Medication Instructions Recorded Confirmed Type Cyanocobalamin [Vitamin B-12] 500 mcg PO DAILY@1700 12/22/19 08/27/20 History Lovastatin [Mevacor] 20 mg PO HS@209912/22/19 08/27/20 History Memantine [Namenda] 10 mg PO BID@0800,209912/22/19 08/27/20 History allopurinoL [Zyloprim] 300 mg PO DAILY@0600 12/22/19 08/27/20 History Furosemide [Lasix] 40 mg PO BID@0800,1700 02/18/20 08/27/20 History Magnesium Oxide 400 mg PO DAILY #30 tablet 02/20/20 08/27/20 Rx lisinopriL [Zestril] 5 mg PO DAILY #30 tablet 02/20/20 08/27/20 Rx Acetaminophen [Tylenol Arthritis] 650 mg PO Q4H PRN 08/27/20 08/27/20 History Ascorbic Acid [Vitamin C] 1,000 mg PO DAILY@0800 08/27/20 08/27/20 History Cholecalciferol [Vitamin D3 (25 1,000 unit PO DAILY@0800 08/27/20 08/27/20 History Mcg = 1000 Iu)] Cholecalciferol [Vitamin D3 (25 2,000 unit PO DAILY 08/27/20 08/27/20 History Mcg = 1000 Iu)] Ipratropium-Albuterol Nebulize 3 ml INHALATION RT-Q6H PRN 08/27/20 08/27/20 History [Duoneb 0.5 mg-3 mg/3 ml Soln] LORazepam [Ativan] 0.5 mg PO TID@0800,1200,1700 08/27/20 08/27/20 History Lactose-Reduced Food [Ensure Plus] 1 can PO TID@0800,1200,1700 08/27/20 08/27/20 History Magic Cup 1 can PO BID@1200,1700 08/27/20 08/27/20 History Magnesium Hydroxide [Milk of 2,400 mg PO DAILY PRN 08/27/20 08/27/20 History Magnesia] Melatonin 5 mg PO HS@2100 08/27/20 08/27/20 History Metoprolol Tartrate [Lopressor] 25 mg PO BID@0800,1700 08/27/20 08/27/20 History Mirtazapine [Remeron] 15 mg PO HS@2100 08/27/20 08/27/20 History Na Phos,M-B/Na Phos,Di-Ba [Fleet 133 ml RECTAL DAILY PRN 08/27/20 08/27/20 History Adult] Polyethylene Glycol 3350 [Miralax] 17 gm PO DAILY@0800 08/27/20 08/27/20 History Sennosides/Docusate Sodium [Senna 1 tab PO BID@0800,1700 08/27/20 08/27/20 History Plus 8.6-50 mg Softgel] Valproic Acid Oral Soln [Depakene 250 mg PO BID@0800,1700 08/27/20 08/27/20 History Syrup] Warfarin Sodium [Jantoven] 5 mg PO DAILY@1630 08/27/20 08/27/20 History Zinc Sulfate 220 mg PO DAILY@0800 08/27/20 08/27/20 History bisacodyL [Dulcolax] 10 mg RECTAL DAILY PRN 08/27/20 08/27/20 History guaiFENesin [guaiFENesin Oral 200 mg PO Q4H PRN 08/27/20 08/27/20 History Solution] traZODone HCL 100 mg PO HS@2100 08/27/20 08/27/20 History Allergies Allergy/AdvReac Type Severity Reaction Status Date / Time sulfamethazine Allergy Unknown Verified 08/27/20 07:57 trimethoprim Allergy Unknown Verified 08/27/20 07:57 Physical Exam Vitals: Vital Signs Temp Pulse Pulse Resp BP BP Pulse Ox 08/27/20 12:00 97.9 F 100 25 H 107/66 99 08/27/20 08:00 97.9 F 104 H 28 H 116/74 99 08/27/20 04:16 99.0 F 101 H 22 111/79 99 08/27/20 02:11 98.9 F 90 19 98/50 95 08/27/20 00:44 99.8 F H 99 20 111/73 91 L Intake and Output 08/26/20 08/27/20 08/27/20 22:59 06:59 14:59 Intake Total 100 Balance 100 Intake: Oral 100 Other: Voiding Method Diaper # Voids 1 0 # Bowel Movements 0 Weight 84 kg GENERAL EXAM: Alert, restless and confused, 80-year-old white female, resting in bed, frequently removing her nonrebreather mask off comfortable in no apparent distress. HEAD: Normocephalic/atraumatic. EYES: Normal reaction of pupils, equal size. Conjunctiva pink, sclera white. NOSE: Clear with pink turbinates. THROAT: No erythema or exudates. NECK: No masses, no JVD, no thyroid enlargement, no adenopathy. CHEST: No chest wall deformity. Symmetrical expansion. LUNGS: Equal air entry with diminished breath sounds, with bibasilar crackles CVS: Regular rate and rhythm, normal S1 and S2, no gallops, no murmurs, no rubs ABDOMEN: Soft, nontender. No hepatosplenomegaly, normal bowel sounds, no guarding or rigidity. EXTREMITIES: No clubbing, no edema, no cyanosis, 2+ pulses and upper and lower extremities. MUSCULOSKELETAL: Muscle strength and tone normal. SPINE: No scoliosis or deformity SKIN: No rashes CENTRAL NERVOUS SYSTEM: Alert and oriented -1. No focal deficits, tone is normal in all 4 extremities. PSYCHIATRIC: Alert and oriented -1. Appropriate affect. Intact judgment and insight. Results - Laboratory Findings CBC and BMP: 08/27/20 07:06 08/27/20 07:06 PT/INR, D-dimer PT 14.9 sec (9.0-12.0) H 08/27/20 07:06 INR 1.5 (<1.2) H 08/27/20 07:06 D-Dimer 0.97 mg/L FEU (<0.60) H 08/27/20 07:06 Abnormal lab findings: Abnormal Labs 08/27/20 08/27/20 08/27/20 01:09 01:09 01:09 Hgb Hct 48.3 H Plt Count 127 L Lymphocytes # 0.7 L ESR PT 15.0 H INR 1.5 H APTT 30.6 H D-Dimer 1.33 H Sodium 136 L Carbon Dioxide 34 H BUN 31 H Glucose 123 H Calcium 8.2 L Ferritin 886.4 H Total Bilirubin 2.0 H AST 45 H Lactate Dehydrogenase 1038 H C-Reactive Protein 163.5 H Albumin 3.2 L Procalcitonin 08/27/20 08/27/20 08/27/20 01:09 07:06 07:06 Hgb 16.2 H Hct 49.0 H Plt Count 129 L Lymphocytes # 0.4 L ESR 31 H PT 14.9 H INR 1.5 H APTT D-Dimer 0.97 H Sodium Carbon Dioxide BUN Glucose Calcium Ferritin Total Bilirubin AST Lactate Dehydrogenase C-Reactive Protein Albumin Procalcitonin 4.28 H 08/27/20 07:06 Hgb Hct Plt Count Lymphocytes # ESR PT INR APTT D-Dimer Sodium Carbon Dioxide BUN 31 H Glucose 181 H Calcium 8.2 L Ferritin Total Bilirubin 2.0 H AST 52 H Lactate Dehydrogenase C-Reactive Protein Albumin 3.2 L Procalcitonin - Diagnostic Findings Chest x-ray: report reviewed, image reviewed Assessment and Plan Plan: Assessment: #1. Acute hypoxic respiratory failure related to COVID 19 pneumonia, and there is also possibility of a bacterial superinfection related to elevated pro calcitonin #2. Altered mental status, related to acute metabolic encephalopathy related to sepsis and hypoxemia #3. Elevated inflammatory markers related to COVID 19 infection #4. History of A. fib, on Coumadin on the regular basis #5. History of Alzheimer's dementia #6. Hypertension #7. 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 I reviewed the nurse practitioner's note and agree with the documented findings and plan of care. Lung sounds are positive for diminished breath sounds. The findings and the impression was discussed with the patient. I attest to the documentation by the nurse practitioner. Time with Patient: Greater than 30
[2020-08-27 15:35] LABS: Ferritin 1488.3 ng/mL (10.0-291.0)
[2020-08-27] MEDS: PIPERACILLIN-TAZOBACTAM 3.375 GM in SODIUM CHLORIDE 0.9% 100 ML IVPB SCH ×2 (17:28→23:57)
[2020-08-27] MEDS ORDERED: WARFARIN 2 MG TAB PO SCH (18:00)
[2020-08-27] MEDS ORDERED: WARFARIN 7.5 MG TAB PO ONE (18:00)
[2020-08-27] MEDS: METOPROLOL SUCCINATE (ER) 25 MG TAB.ER.24H PO SCH (19:47)
[2020-08-27] MEDS: ATORVASTATIN 10 MG TAB PO SCH (19:47)
[2020-08-27 20:19] LABS: Glucose,Whole Blood 195 mg/dL (75-99)
[2020-08-27] MEDS ORDERED: LORazepam 2 MG/ML INJ IV STA (21:40)
[2020-08-27] MEDS ORDERED: BENZONATATE 100 MG CAP PO PRN (21:43)
[2020-08-27] MEDS: guaiFENesin SYRUP 100MG/5ML 200 MG/10 ML CUP PO SCH (22:16)
[2020-08-28] MEDS: allopurinoL 300 MG TAB PO SCH (05:24)
[2020-08-28] MEDS: CYANOCOBALAMIN 500 MCG TAB PO SCH (05:24)
[2020-08-28] MEDS: DONEPEZIL 10 MG TAB PO SCH ×2 (05:24→20:46)
[2020-08-28] MEDS: FUROSEMIDE 40 MG TAB PO SCH (05:24)
[2020-08-28] MEDS: CHOLECALCIFEROL 1,000 UNIT TAB PO SCH (05:25)
[2020-08-28] MEDS: MEMANTINE 10 MG TAB PO SCH ×2 (05:25→20:46)
[2020-08-28] MEDS: PANTOPRAZOLE 40 MG TABLET PO SCH (05:25)
[2020-08-28] MEDS: METHYLPHENIDATE HCL 10 MG TAB PO SCH ×2 (06:43→15:52)
[2020-08-28 07:48] LABS: Basophils % (A) 0 %; Eosinophils % (A) 0 %; HCT 45.2 % (34.0-46.0); Lymphocytes # (A) 0.5 k/uL (1.0-4.8); Lymphocytes % (A) 4 %; MCH 31.8 pg (25.0-35.0); MCHC 33.2 g/dL (31.0-37.0); MCV 95.8 fL (80.0-100.0); Mean Platelet Volume 9.2; Monocytes # (A) 0.3 k/uL (0-1.0); Monocytes % (A) 2 %; Neutrophils # (A) 12.4 k/uL (1.3-7.7); Neutrophils % (A) 93 %; Platelet Count 139 k/uL (150-450); RBC 4.72 m/uL (3.80-5.40); RDW 14.3 % (11.5-15.5); WBC 13.4 k/uL (3.8-10.6)
[2020-08-28 08:20] LABS: INR 1.9 (<1.2); Prothrombin Time 18.4 sec (9.0-12.0)
[2020-08-28] MEDS: guaiFENesin SYRUP 100MG/5ML 200 MG/10 ML CUP PO SCH ×2 (10:17→20:46)
[2020-08-28] MEDS: lisinopriL 5 MG TAB PO SCH (10:17)
[2020-08-28] MEDS: DEXAMETHASONE SOD PHOSPHATE 10 MG/ML 1 ML VIAL IV SCH (10:17)
[2020-08-28] MEDS: MAGNESIUM OXIDE 400 MG TAB PO SCH (10:17)
[2020-08-28] MEDS: PIPERACILLIN-TAZOBACTAM 3.375 GM in SODIUM CHLORIDE 0.9% 100 ML IVPB SCH ×3 (10:18→23:07)
[2020-08-28] MEDS: LORazepam 2 MG/ML INJ IV PRN ×2 (10:24→17:01)
--- NOTE | 2020-08-28 13:11 | P.PN ---
Subjective Progress Note Date: 08/28/20 Principal diagnosis: Acute hypoxic respiratory failure, Covid 19 pneumonitis, chronic systolic and diastolic dysfunction failure, A. fib, advanced dementia This is 80-year-old female patient of Dr. Scott, with a past medical history of advanced dementia, hypertension, atrial fibrillation, and congestive heart failure. She is a senior living resident at [facility]. During routine testing last week at [facility] patient tested positive for COVID on 08/17. Patient was doing well without significant symptoms. Apparently last night the nurse had noted her to be in respiratory distress with hypoxia and she developed a fever. At that point she was transferred to the hospital. Upon arrival, temperature was 99.8 and she was 91% on a nonrebreather. Chest x-ray showed infiltrates in the mid and lower left chest. Labs showed WBC 8.1, hemoglobin 16.2, platelet 129, d-dimer 0.97, BUN 31, creatinine 0.59, alk phos 96, LDH 1038, C-reactive protein 163.5. Patient was started on dexamethasone 6 mg IV. Blood cultures obtained and pulmonary consulted. 08/28: A Chin is slightly better pulse ox has improved some, temperature is down compared to before, she is more awake alert and more interactive still very confused at the time. Her Covid 19 marker are extremely high patient is not on any antiviral medication still only on dexamethasone along with treatment for aspiration pneumonia. Objective - Vital Signs Vital signs: Vital Signs Temp 99.2 F 08/28/20 05:25 Pulse 86 08/28/20 00:00 Resp 18 08/28/20 05:25 BP 109/73 08/28/20 05:25 Pulse Ox 93 L 08/28/20 05:25 Intake & Output 08/27/20 08/28/20 08/28/20 18:59 06:59 18:59 Intake Total 500 100 Balance 500 100 Weight 76.5 kg Intake: Intake, IV Titration 100 Amount Piperacillin-Tazobactam 3 100 .375 gm In Sodium Chloride 0.9% 100 ml @ 25 mls/hr IVPB Q8HR [facility] Rx# :[id number] Oral 500 Other: Voiding Method Diaper Diaper Incontinent Incontinent # Voids 0 1 1 # Bowel Movements 0 - Exam Review of Systems Constitutional: Reports chills, Reports fatigue, Reports fever Ears, nose, mouth and throat: Denies headache, Denies nasal congestion, Denies nasal discharge, Denies sinus pain, Denies sinus pressure, Denies sore throat Cardiovascular: Reports dyspnea on exertion, Reports shortness of breath, Denies chest pain, Denies lightheadedness, Denies orthopnea, Denies palpitations, Denies syncope Respiratory: Reports congestion, Reports cough, Reports dyspnea, Denies pain Gastrointestinal: Reports loss of appetite, Denies abdominal pain, Denies constipation, Denies diarrhea, Denies nausea, Denies vomiting Genitourinary: Denies hematuria, Denies nocturia, Denies urgency, Denies urinary frequency Musculoskeletal: Reports frequent falls, Reports muscle weakness, Denies arm numbness/tingling, Denies fractures Integumentary: Denies growths, Denies lesions, Denies pruritus, Denies rash, Denies wounds Neurological: Reports confusion, Denies numbness, Denies syncope Psychiatric: Reports confusion, Reports memory loss, Denies depression, Denies mood swings, Denies paranoia, Denies suicidal ideation Physical examinations: General Appearance: Alert, severely confuse look older than her age. Neck HEENT: Supple, no lymphadenopathy, no thyroid enlargement, no carotid bruits. Lungs: Decreased breath some bilateral rhonchi positive crackles mostly in the right base with mild respiratory expiratory wheezes. Chest Wall: Decrease expansion with deep inspiration no tenderness and no deformity was found on exam, no costochondral pain or discomfort. Heart: Irregular rate and rhythm, S1, S2 positive S3 with systolic murmur. Back: Symmetric, no curvature, ROM normal, no CVA tenderness. Abdomen: Soft, non-tender, bowel sounds active all four quadrants, no masses, no organomegaly. Extremities: Extremities normal, atraumatic, no cyanosis 1+ edema Pulses: 2+ and symmetric. Skin: Skin color, texture, tugor normal, no rashes or lesions. Neurologic: Alert oriented severely confuse cranial nerves II through XII intact, no motor deficit, no abnormal balance or gait. - Labs CBC & Chem 7: 08/28/20 07:16 08/27/20 07:06 Labs: Abnormal Lab Results - Last 24 Hours (Table) 08/27/20 08/27/20 08/28/20 Range/Units 07:06 20:14 07:16 WBC (3.8-10.6) k/uL Plt Count (150-450) k/uL Neutrophils # (1.3-7.7) k/uL Lymphocytes # (1.0-4.8) k/uL PT 18.4 H (9.0-12.0) sec INR 1.9 H (<1.2) POC Glucose (mg/dL) 195 H (75-99) mg/dL Ferritin 1488.3 H (10.0-291.0) ng/mL 08/28/20 Range/Units 07:16 WBC 13.4 H (3.8-10.6) k/uL Plt Count 139 L (150-450) k/uL Neutrophils # 12.4 H (1.3-7.7) k/uL Lymphocytes # 0.5 L (1.0-4.8) k/uL PT (9.0-12.0) sec INR (<1.2) POC Glucose (mg/dL) (75-99) mg/dL Ferritin (10.0-291.0) ng/mL Microbiology - Last 24 Hours (Table) 08/27/20 01:09 Blood Culture - Preliminary Blood No Growth after 24 hours 08/27/20 01:09 Blood Culture - Preliminary Blood No Growth after 24 hours Assessment and Plan Assessment: 1. Acute hypoxic respiratory failure. Patient started on dexamethasone 6 mg IV push daily, pulmonary consulted. Patient still been treated for Covid 19 pneumonitis along with aspiration pneumonia. 2. COVID19 pneumonia. Started on dexamethasone 6 mg IV push, pulmonary on consult. 3 aspiration pneumonia: Mostly gram-negative, patient been on Zosyn continue steroid continue oxygen supportive care and updraft treatment. 4. Chronic systolic and diastolic congestive heart failure. Last echocardiogram was February of 2020, showed ejection fraction of less than 20% with grade 3 diastolic dysfunction. Continue Lasix 40 mg daily, lisinopril 5 mg daily, and metoprolol 25 mg daily. 5. Chronic atrial fibrillation. Continue metoprolol 25 mg daily along with Coumadin 6. Hypertension. Continue lisinopril 5 mg daily and metoprolol 25 mg daily 7. Advanced dementia. Continue donepezil 10 mg twice a day and Namenda 10 mg twice a day. 8. Gout. Continue allopurinol 300 mg daily. 9 Hyperlipidemia. Continue atorvastatin 10 mg daily. 10. GI prophylaxis continue pantoprazole 40 mg daily CODE STATUS: DO NOT RESUSCITATE. Discharge expectation if patient is doing well on Sunday or Sunday might return to [facility] with comfort care.
--- NOTE | 2020-08-28 14:37 | P.PN ---
Subjective Progress Note Date: 08/28/20 Principal diagnosis: Acute CoVID 19 pneumonia 80-year-old white female patient who is a poor historian, has a history of Alzheimer's dementia resides at [facility] and rehab was brought into the hospital on 08/27/2020 for evaluation of increased shortness of breath and chest discomfort and altered mental status. Patient was diagnosed with COVID 19 on 08/17/2020. She did have a fever at the [facility]. She was placed on 100% nonrebreather with O2 sat of 93%. Appeared to be quite drowsy however did not seem to be in any respiratory distress. NO history of nausea vomiting or diarrhea, no history of abdominal pain. Chest x-ray shows infiltrates in the mid and lower left chest that are new from her previous chest x-ray on 07/11/2020. EKG showed A. fib with RVR with a rate of 110 BPM, incomplete left bundle branch block and nonspecific ST and T wave abnormalities. Did have a low-grade fever on presentation with a temp of 99.8F. Currently remains on 15 L of oxygen, she is very confused, she frequently removes her oxygen, and becomes more confused, her pulse ox on 15 L is 99%, slightly tachycardic with a rate of 100-104 BPM, blood pressure is 107/66. She is mildly tachypneic, but appears to be in no acute distress, no cough, lung sounds are diminished, with some basilar crackles, appears to be quite comfortable, abdomen is soft, is quite confused, she is not able to provide any history. Today's labs have been reviewed showing white blood cell count 8.1, hemoglobin of 16.2, platelet count of 129, she is lymphopenic with a lymphocyte count of 0.4, INR 1.5, d-dimer was 1.3 on initial set of blood work, down to 0.9 on today's labs, electrolytes are within normal limits, BUN of 31 creatinine 0.59, lactic acid of 1.8, ferritin is 886, LDH was 1038, CRP was 163, pro-calcitonin level was 4.8. Patient was started on IV steroids with dexamethasone 6 mg daily, Coumadin, she did receive a dose of Lovenox. The patient is seen today the summer in follow-up on the selective care unit. She is currently resting fairly comfortably in bed. She is on 9 L high flow nasal cannula to maintain O2 saturation in the 90s. White count 13.4. Hemoglobin 15.0. Leukocytes 0.5. INR 1.9. Remains on Zosyn. Dexamethasone. Anticoagulated with warfarin. Objective - Vital Signs Vital signs: Vital Signs Temp 99.0 F 08/28/20 12:00 Pulse 92 08/28/20 12:00 Resp 20 08/28/20 12:00 BP 119/83 08/28/20 12:00 Pulse Ox 92 L 08/28/20 12:00 Intake & Output 08/27/20 08/28/20 08/28/20 18:59 06:59 18:59 Intake Total 500 100 Balance 500 100 Weight 76.5 kg Intake: Intake, IV Titration 100 Amount Piperacillin-Tazobactam 3 100 .375 gm In Sodium Chloride 0.9% 100 ml @ 25 mls/hr IVPB Q8HR [facility] Rx# :[id number] Oral 500 Other: Voiding Method Diaper Diaper Diaper Incontinent Incontinent Incontinent # Voids 0 1 1 # Bowel Movements 0 - Exam GENERAL EXAM: Alert, confused, 80-year-old female patient, on 9 L high flow nasal cannula, resting fairly comfortably in bed. butt maker at the bedside, resting in bed. HEAD: Normocephalic/atraumatic. EYES: Normal reaction of pupils, equal size. Conjunctiva pink, sclera white. NOSE: Clear with pink turbinates. THROAT: No erythema or exudates. NECK: No masses, no JVD, no thyroid enlargement, no adenopathy. CHEST: No chest wall deformity. Symmetrical expansion. LUNGS: Equal air entry with diminished breath sounds, with bibasilar crackles CVS: Regular rate and rhythm, normal S1 and S2, no gallops, no murmurs, no rubs ABDOMEN: Soft, nontender. No hepatosplenomegaly, normal bowel sounds, no gu arding or rigidity. EXTREMITIES: No clubbing, no edema, no cyanosis, 2+ pulses and upper and lower e xtremities. MUSCULOSKELETAL: Muscle strength and tone normal. SPINE: No scoliosis or deformity SKIN: No rashes CENTRAL NERVOUS SYSTEM: No focal deficits, tone is normal in all 4 extremities. PSYCHIATRIC: Alert and oriented -1. Appropriate affect. Intact judgment and insight. - Labs CBC & Chem 7: 08/28/20 07:16 12/18/20 07:06 Labs: Abnormal Lab Results - Last 24 Hours (Table) 08/27/20 08/27/20 08/28/20 Range/Units 07:06 20:14 07:16 WBC (3.8-10.6) k/uL Plt Count (150-450) k/uL Neutrophils # (1.3-7.7) k/uL Lymphocytes # (1.0-4.8) k/uL PT 18.4 H (9.0-12.0) sec INR 1.9 H (<1.2) POC Glucose (mg/dL) 195 H (75-99) mg/dL Ferritin 1488.3 H (10.0-291.0) ng/mL 08/28/20 Range/Units 07:16 WBC 13.4 H (3.8-10.6) k/uL Plt Count 139 L (150-450) k/uL Neutrophils # 12.4 H (1.3-7.7) k/uL Lymphocytes # 0.5 L (1.0-4.8) k/uL PT (9.0-12.0) sec INR (<1.2) POC Glucose (mg/dL) (75-99) mg/dL Ferritin (10.0-291.0) ng/mL Microbiology - Last 24 Hours (Table) 08/27/20 01:09 Blood Culture - Preliminary Blood No Growth after 24 hours 08/27/20 01:09 Blood Culture - Preliminary Blood No Growth after 24 hours Assessment and Plan Assessment: 1 Acute hypoxic respiratory failure related to COVID 19 pneumonia, and there is also possibility of a bacterial superinfection related to elevated pro calcitonin, currently on Zosyn 2 Altered mental status, related to acute metabolic encephalopathy related to sepsis and hypoxemia 3 Elevated inflammatory markers related to COVID 19 infection 4 History of A. fib, on Coumadin on the regular basis 5 History of Alzheimer's dementia 6 Hypertension 7 History of CHF unspecified Plan: The patient was seen and evaluated by Dr. Willard We'll continue the current treatment plan for now Titrate down the FiO2 as tolerated Repeat a chest x-ray and labs in the a.m. We will continue to follow I, the cosigning physician, performed a history & physical examination of the pa tient. Lungs sounds with bibasilar crackles. Maintaining good O2 saturations in the 90s on 9 L high flow nasal cannula. I discussed the assessment and plan of care with my nurse practitioner, Bella Kennedy. I attest to the above note as dictated by her.
[2020-08-28] MEDS ORDERED: WARFARIN 5 MG TAB PO ONE (18:00)
[2020-08-28] MEDS: ATORVASTATIN 10 MG TAB PO SCH (20:46)
[2020-08-28] MEDS: METOPROLOL SUCCINATE (ER) 25 MG TAB.ER.24H PO SCH (20:46)
[2020-08-29] MEDS: PANTOPRAZOLE 40 MG TABLET PO SCH (05:10)
[2020-08-29] MEDS: allopurinoL 300 MG TAB PO SCH (05:11)
[2020-08-29] MEDS: CYANOCOBALAMIN 500 MCG TAB PO SCH (05:11)
[2020-08-29] MEDS: METHYLPHENIDATE HCL 10 MG TAB PO SCH ×2 (05:11→11:44)
[2020-08-29] MEDS: CHOLECALCIFEROL 1,000 UNIT TAB PO SCH (05:11)
[2020-08-29] MEDS: FUROSEMIDE 40 MG TAB PO SCH (05:11)
[2020-08-29] MEDS: MEMANTINE 10 MG TAB PO SCH ×2 (05:11→21:16)
[2020-08-29] MEDS: DONEPEZIL 10 MG TAB PO SCH ×2 (05:13→21:15)
--- NOTE | 2020-08-29 07:36 | XR ---
EXAMINATION TYPE: XR chest 1V portable DATE OF EXAM: 08/29/2020 HISTORY: Shortness of breath. COMPARISON: 08/27/2020 TECHNIQUE: Single view of the chest is submitted. FINDINGS: Demonstrated are scattered senescent parenchymal change. Suggestion of progression of bilateral diffuse airspace infiltrates with relative sparing of the righ t lateral lung base and left upper lobe. The heart is stable. Hilar and mediastinal structures are within normal limits. Degenerative changes are seen of the dorsal spine. IMPRESSION: 1. Suggestion of progression of bilateral diffuse airspace infiltrates with relative sparing of the right lateral lung base and left upper lobe.
[2020-08-29] MEDS: PIPERACILLIN-TAZOBACTAM 3.375 GM in SODIUM CHLORIDE 0.9% 100 ML IVPB SCH ×2 (08:42→15:58)
[2020-08-29] MEDS: MAGNESIUM OXIDE 400 MG TAB PO SCH (08:43)
[2020-08-29] MEDS: DEXAMETHASONE SOD PHOSPHATE 10 MG/ML 1 ML VIAL IV SCH (08:43)
[2020-08-29] MEDS: guaiFENesin SYRUP 100MG/5ML 200 MG/10 ML CUP PO SCH ×2 (08:43→21:16)
[2020-08-29] MEDS: lisinopriL 5 MG TAB PO SCH (08:43)
[2020-08-29 11:38] LABS: C Reactive Protein 54.7 mg/L (<10.0)
[2020-08-29 11:40] LABS: D-Dimer 0.96 mg/L FEU (<0.60); Prothrombin Time 29.4 sec (9.0-12.0)
[2020-08-29] MEDS ORDERED: PROMETHAZINE 25 MG TAB PO PRN (11:52)
[2020-08-29] MEDS: LORazepam 2 MG/ML INJ IV PRN (11:55)
--- NOTE | 2020-08-29 16:24 | P.PN ---
Subjective Progress Note Date: 08/29/20 Principal diagnosis: Acute CoVID 19 pneumonia 80-year-old white female patient who is a poor historian, has a history of Alzheimer's dementia resides at [facility] and rehab was brought into the hospital on 08/27/2020 for evaluation of increased shortness of breath and chest discomfort and altered mental status. Patient was diagnosed with COVID 19 on 08/17/2020. She did have a fever at the [facility]. She was placed on 100% nonrebreather with O2 sat of 93%. Appeared to be quite drowsy however did not seem to be in any respiratory distress. NO history of nausea vomiting or diarrhea, no history of abdominal pain. Chest x-ray shows infiltrates in the mid and lower left chest that are new from her previous chest x-ray on 07/11/2020. EKG showed A. fib with RVR with a rate of 110 BPM, incomplete left bundle branch block and nonspecific ST and T wave abnormalities. Did have a low-grade fever on presentation with a temp of 99.8F. Currently remains on 15 L of oxygen, she is very confused, she frequently removes her oxygen, and becomes more confused, her pulse ox on 15 L is 99%, slightly tachycardic with a rate of 100-104 BPM, blood pressure is 107/66. She is mildly tachypneic, but appears to be in no acute distress, no cough, lung sounds are diminished, with some basilar crackles, appears to be quite comfortable, abdomen is soft, is quite confused, she is not able to provide any history. Today's labs have been reviewed showing white blood cell count 8.1, hemoglobin of 16.2, platelet count of 129, she is lymphopenic with a lymphocyte count of 0.4, INR 1.5, d-dimer was 1.3 on initial set of blood work, down to 0.9 on today's labs, electrolytes are within normal limits, BUN of 31 creatinine 0.59, lactic acid of 1.8, ferritin is 886, LDH was 1038, CRP was 163, pro-calcitonin level was 4.8. Patient was started on IV steroids with dexamethasone 6 mg daily, Coumadin, she did receive a dose of Lovenox. The patient is seen today the summer in follow-up on the selective care unit. She is currently resting fairly comfortably in bed. She is on 9 L high flow nasal cannula to maintain O2 saturation in the 90s. White count 13.4. Hemoglobin 15.0. Leukocytes 0.5. INR 1.9. Remains on Zosyn. Dexamethasone. Anticoagulated with warfarin. The patient is seen today 08/29/2020 in follow-up on the selective care unit. She remains awake and alert in no acute distress. Currently maintaining O2 saturations in the 90s now on 3 L high flow nasal cannula. She's been afebrile. Hemodynamically stable. Blood cultures reveal no growth. INR 3.0. D-dimer 0.96. LDH 1108. C-reactive protein 54.7. She remains on Zosyn, anticoagulated with warfarin. Continued on dexamethasone and vitamin supplements. Chest x-ray continues to show bilateral diffuse airspace infiltrates. Objective - Vital Signs Vital signs: Vital Signs Temp 97.0 F L 08/29/20 12:00 Pulse 90 08/29/20 14:00 Resp 19 08/29/20 14:00 BP 128/68 08/29/20 12:00 Pulse Ox 92 L 08/29/20 12:00 Intake & Output 08/28/20 08/29/20 08/29/20 18:59 06:59 18:59 Intake Total 200 350 Balance 200 350 Weight 72.5 kg Intake: Intake, IV Titration 200 100 Amount Piperacillin-Tazobactam 3 200 100 .375 gm In Sodium Chloride 0.9% 100 ml @ 25 mls/hr IVPB Q8HR [facility] Rx# :[id number] Oral 250 Other: Voiding Method Diaper Diaper Diaper Incontinent Incontinent Incontinent # Voids 1 1 1 # Bowel Movements 0 - Exam GENERAL EXAM: Alert, confused, 80-year-old female patient, on 3 L high flow nasal cannula, resting fairly comfortably in bed. dental insurance coordinator at the bedside, resting in bed. HEAD: Normocephalic/atraumatic. EYES: Normal reaction of pupils, equal size. Conjunctiva pink, sclera white. NOSE: Clear with pink turbinates. THROAT: No erythema or exudates. NECK: No masses, no JVD, no thyroid enlargement, no adenopathy. CHEST: No chest wall deformity. Symmetrical expansion. LUNGS: Equal air entry with diminished breath sounds, with bibasilar crackles CVS: Regular rate and rhythm, normal S1 and S2, no gallops, no murmurs, no rubs ABDOMEN: Soft, nontender. No hepatosplenomegaly, normal bowel sounds, no guarding or rigidity. EXTREMITIES: No clubbing, no edema, no cyanosis, 2+ pulses and upper and lower extremities. MUSCULOSKELETAL: Muscle strength and tone normal. SPINE: No scoliosis or deformity SKIN: No rashes CENTRAL NERVOUS SYSTEM: No focal deficits, tone is normal in all 4 extremities. PSYCHIATRIC: Alert and oriented -1. Appropriate affect. Intact judgment and insight. - Labs CBC & Chem 7: 08/28/20 07:16 08/27/20 07:06 Labs: Abnormal Lab Results - Last 24 Hours (Table) 08/29/20 08/29/20 Range/Units 10:54 10:54 PT 29.4 H (9.0-12.0) sec INR 3.0 H (<1.2) D-Dimer 0.96 H (<0.60) mg/L FEU Lactate Dehydrogenase 1108 H (313-618) U/L C-Reactive Protein 54.7 H (<10.0) mg/L Microbiology - Last 24 Hours (Table) 08/27/20 01:09 Blood Culture - Preliminary Blood No Growth after 48 hours 08/27/20 01:09 Blood Culture - Preliminary Blood No Growth after 48 hours Assessment and Plan Assessment: 1 Acute hypoxic respiratory failure related to COVID 19 pneumonia, and there is also possibility of a bacterial superinfection related to elevated pro calcitoni n, currently on Zosyn 2 Altered mental status, related to acute metabolic encephalopathy related to sepsis and hypoxemia 3 Elevated inflammatory markers related to COVID 19 infection 4 History of A. fib, on Coumadin on the regular basis 5 History of Alzheimer's dementia 6 Hypertension 7 History of CHF unspecified Plan: The patient was seen and evaluated by Dr. Willard We'll continue the current treatment plan for now Titrate down the FiO2 as tolerated Overall prognosis is quite guarded She is a DO NOT RESUSCITATE/DO NOT INTUBATE CODE STATUS We will continue to follow I, the cosigning physician, performed a history & physical examination of the patient. Lungs sounds with bibasilar crackles. Maintaining good O2 saturations in the 90s on 3 L high flow nasal cannula. I discussed the assessment and plan of care with my nurse practitioner, Bella Kennedy. I attest to the above note as dictated by her.
[2020-08-29] MEDS ORDERED: WARFARIN 0.5 MG TAB PO ONE (18:00)
[2020-08-29] MEDS ORDERED: WARFARIN 2 MG TAB PO SCH (18:00)
[2020-08-29] MEDS: ATORVASTATIN 10 MG TAB PO SCH (21:15)
[2020-08-29] MEDS: METOPROLOL SUCCINATE (ER) 25 MG TAB.ER.24H PO SCH (21:15)
[2020-08-29] MEDS: MELATONIN 3 MG TABLET PO SCH (21:15)
[2020-08-29] MEDS: VALPROIC ACID ORAL SOLN 250 MG/5 ML CUP PO SCH (21:16)
[2020-08-30] MEDS: PIPERACILLIN-TAZOBACTAM 3.375 GM in SODIUM CHLORIDE 0.9% 100 ML IVPB SCH ×3 (00:44→16:32)
[2020-08-30] MEDS: METHYLPHENIDATE HCL 10 MG TAB PO SCH ×2 (05:14→08:47)
[2020-08-30] MEDS: CHOLECALCIFEROL 1,000 UNIT TAB PO SCH (05:14)
[2020-08-30] MEDS: MEMANTINE 10 MG TAB PO SCH ×2 (05:14→20:12)
[2020-08-30] MEDS: CYANOCOBALAMIN 500 MCG TAB PO SCH (05:14)
[2020-08-30] MEDS: DONEPEZIL 10 MG TAB PO SCH ×2 (05:14→20:12)
[2020-08-30] MEDS: allopurinoL 300 MG TAB PO SCH (05:14)
[2020-08-30] MEDS: FUROSEMIDE 40 MG TAB PO SCH (05:14)
--- NOTE | 2020-08-30 05:20 | P.PN ---
Subjective Progress Note Date: 08/29/20 Principal diagnosis: Acute hypoxic respiratory failure, Covid 19 pneumonitis, chronic systolic and diastolic dysfunction failure, A. fib, advanced dementia This is 80-year-old female patient of Dr. Scott, with a past medical history of advanced dementia, hypertension, atrial fibrillation, and congestive heart failure. She is a alf resident at [facility]. During routine testing last week at [facility] patient tested positive for COVID on 08/17. Patient was doing well without significant symptoms. Apparently last night the nurse had noted her to be in respiratory distress with hypoxia and she developed a fever. At that point she was transferred to the hospital. Upon arrival, temperature was 99.8 and she was 91% on a nonrebreather. Chest x-ray showed infiltrates in the mid and lower left chest. Labs showed WBC 8.1, hemoglobin 16.2, platelet 129, d-dimer 0.97, BUN 31, creatinine 0.59, alk phos 96, LDH 1038, C-reactive protein 163.5. Patient was started on dexamethasone 6 mg IV. Blood cultures obtained and pulmonary consulted. 08/28: Patient is slightly better pulse ox has improved some, temperature is down compared to before, she is more awake alert and more interactive still very confused at the time. Her Covid 19 marker are extremely high patient is not on any antiviral medication still only on dexamethasone along with treatment for aspiration pneumonia. 08/29: Patient is clinically doing much better been treated for aspiration pneumonia in the Covid her oxygen saturation has been better on low-flow oxygen. No further fever or chills if agreeable by pulmonary patient is more stable might be able to send her back to [facility] sometimes on Sunday or Sunday. Objective - Vital Signs Vital signs: Vital Signs Temp 98.0 F 08/29/20 05:13 Pulse 71 08/29/20 05:13 Resp 18 08/28/20 23:07 BP 101/64 08/29/20 05:13 Pulse Ox 96 08/29/20 05:13 Intake & Output 08/28/20 08/28/20 08/29/20 06:59 18:59 06:59 Intake Total 100 200 Balance 100 200 Weight 76.5 kg 72.5 kg Intake: Intake, IV Titration 100 200 Amount Piperacillin-Tazobactam 3 100 200 .375 gm In Sodium Chloride 0.9% 100 ml @ 25 mls/hr IVPB Q8HR [facility] Rx# :[id number] Other: Voiding Method Diaper Diaper Diaper Incontinent Incontinent Incontinent # Voids 1 1 1 - Exam Review of Systems Constitutional: Reports chills, Reports fatigue, Reports fever Ears, nose, mouth and throat: Denies headache, Denies nasal congestion, Denies nasal discharge, Denies sinus pain, Denies sinus pressure, Denies sore throat Cardiovascular: Reports dyspnea on exertion, Reports shortness of breath, Denies chest pain, Denies lightheadedness, Denies orthopnea, Denies palpitations, Denies syncope Respiratory: Reports congestion, Reports cough, Reports dyspnea, Denies pain Gastrointestinal: Reports loss of appetite, Denies abdominal pain, Denies constipation, Denies diarrhea, Denies nausea, Denies vomiting Genitourinary: Denies hematuria, Denies nocturia, Denies urgency, Denies urinary frequency Musculoskeletal: Reports frequent falls, Reports muscle weakness, Denies arm numbness/tingling, Denies fractures Integumentary: Denies growths, Denies lesions, Denies pruritus, Denies rash, Denies wounds Neurological: Reports confusion, Denies numbness, Denies syncope Psychiatric: Reports confusion, Reports memory loss, Denies depression, Denies mood swings, Denies paranoia, Denies suicidal ideation Physical examinations: General Appearance: Alert, severely confuse look older than her age. Neck HEENT: Supple, no lymphadenopathy, no thyroid enlargement, no carotid bruits. Lungs: Decreased breath some bilateral rhonchi positive crackles mostly in the right base with mild respiratory expiratory wheezes. Chest Wall: Decrease expansion with deep inspiration no tenderness and no deformity was found on exam, no costochondral pain or discomfort. Heart: Irregular rate and rhythm, S1, S2 positive S3 with systolic murmur. Back: Symmetric, no curvature, ROM normal, no CVA tenderness. Abdomen: Soft, non-tender, bowel sounds active all four quadrants, no masses, no organomegaly. Extremities: Extremities normal, atraumatic, no cyanosis 1+ edema Pulses: 2+ and symmetric. Skin: Skin color, texture, tugor normal, no rashes or lesions. Neurologic: Alert oriented severely confuse cranial nerves II through XII intact, no motor deficit, no abnormal balance or gait. - Labs CBC & Chem 7: 08/28/20 07:16 12/18/20 07:06 Labs: Abnormal Lab Results - Last 24 Hours (Table) 08/28/20 08/28/20 Range/Units 07:16 07:16 WBC 13.4 H (3.8-10.6) k/uL Plt Count 139 L (150-450) k/uL Neutrophils # 12.4 H (1.3-7.7) k/uL Lymphocytes # 0.5 L (1.0-4.8) k/uL PT 18.4 H (9.0-12.0) sec INR 1.9 H (<1.2) Microbiology - Last 24 Hours (Table) 08/27/20 01:09 Blood Culture - Preliminary Blood No Growth after 48 hours 08/27/20 01:09 Blood Culture - Preliminary Blood No Growth after 48 hours Assessment and Plan Assessment: 1. Acute hypoxic respiratory failure. Patient started on dexamethasone 6 mg IV push daily, pulmonary consulted. Patient still been treated for Covid 19 pneumonitis along with aspiration pneumonia. 2. COVID19 pneumonia. Started on dexamethasone 6 mg IV push, pulmonary on consult. 3 aspiration pneumonia: Mostly gram-negative, patient been on Zosyn continue steroid continue oxygen supportive care and updraft treatment. Significant improvement compared with her admission 4. Chronic systolic and diastolic congestive heart failure. Last echocardiogram was February of 2020, showed ejection fraction of less than 20% with grade 3 diastolic dysfunction. Continue Lasix 40 mg daily, lisinopril 5 mg daily, and metoprolol 25 mg daily. 5. Chronic atrial fibrillation. Continue metoprolol 25 mg daily along with Coumadin 6. Hypertension. Continue lisinopril 5 mg daily and metoprolol 25 mg daily 7. Advanced dementia. Continue donepezil 10 mg twice a day and Namenda 10 mg t wice a day. Patient is not competitive she is more confused but not wondering still not climbing out of her bed and more calm that she is laying in bed most of the time. 8. Gout. Continue allopurinol 300 mg daily. 9 Hyperlipidemia. Continue atorvastatin 10 mg daily. 10. GI prophylaxis continue pantoprazole 40 mg daily CODE STATUS: DO NOT RESUSCITATE. Discharge planning: Possibly to [facility] on Sunday.
[2020-08-30] MEDS: VALPROIC ACID ORAL SOLN 250 MG/5 ML CUP PO SCH ×2 (08:47→20:12)
[2020-08-30] MEDS: guaiFENesin SYRUP 100MG/5ML 200 MG/10 ML CUP PO SCH ×2 (08:47→20:13)
[2020-08-30] MEDS: PANTOPRAZOLE 40 MG TABLET PO SCH (08:48)
[2020-08-30] MEDS: DEXAMETHASONE SOD PHOSPHATE 10 MG/ML 1 ML VIAL IV SCH (08:48)
[2020-08-30] MEDS: MAGNESIUM OXIDE 400 MG TAB PO SCH (08:48)
[2020-08-30] MEDS: lisinopriL 5 MG TAB PO SCH (08:48)
--- NOTE | 2020-08-30 12:27 | P.PN ---
Subjective This is 80-year-old female patient of Dr. Scott, with a past medical history of advanced dementia, hypertension, atrial fibrillation, and congestive heart failure. 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 During routine testing last week at [facility] patient tested positive for COVID on 08/17. Patient was doing well without significant symptoms. Apparently last night the nurse had noted her to be in respiratory distress with hypoxia and she developed a fever. At that point she was transferred to the hospital. Upon arrival, temperature w as 99.8 and she was 91% on a nonrebreather. Chest x-ray showed infiltrates in the mid and lower left chest. Labs showed WBC 8.1, hemoglobin 16.2, platelet 129, d-dimer 0.97, BUN 31, creatinine 0.59, alk phos 96, LDH 1038, C-reactive protein 163.5. Patient was started on dexamethasone 6 mg IV. Blood cultures obtained and pulmonary consulted. 08/28: Patient is slightly better pulse ox has improved some, temperature is down compared to before, she is more awake alert and more interactive still very confused at the time. Her Covid 19 marker are extremely high patient is not on any antiviral medication still only on dexamethasone along with treatment for aspiration pneumonia. 08/29: Patient is clinically doing much better been treated for aspiration pneumonia in the Covid her oxygen saturation has been better on low-flow oxygen. No further fever or chills if agreeable by pulmonary patient is more stable might be able to send her back to [facility] sometimes on Sunday or Sunday. 08/30: Patient continues to do well. Her vital signs are stable, she is afebrile 98.3, heart rate in the 60s, respiratory 19, blood pressure 129/66. She continues on 4 L of oxygen via nasal cannula 91%. She continues on dexamethasone 6 mg daily. Ferritin 1338, LDH 1108, C-reactive protein is 54.7. If cleared by pulmonary, patient may be able to return to [facility] tomorrow Objective - Vital Signs Vital signs: Vital Signs Temp 98.3 F 08/30/20 10:00 Pulse 60 08/30/20 10:00 Resp 19 08/30/20 10:00 BP 129/66 08/30/20 10:00 Pulse Ox 91 L 08/30/20 10:00 Intake & Output 08/29/20 08/30/2020 18:59 06:59 18:59 Intake Total 350 480 Balance 350 480 Intake: Intake, IV Titration 100 Amount Piperacillin-Tazobactam 3 100 .375 gm In Sodium Chloride 0.9% 100 ml @ 25 mls/hr IVPB Q8HR [facility] Rx# :[id number] Oral 250 480 Other: Voiding Method Diaper Diaper Diaper # Voids 1 1 2 # Bowel Movements 0 1 - Exam General Appearance: Alert, severely confused Neck HEENT: Supple, no lymphadenopathy, no thyroid enlargement, no carotid bruits. Lungs: Decreased breath some bilateral rhonchi positive crackles mostly in the right base with mild respiratory expiratory wheezes Chest Wall: Decrease expansion with deep inspiration no tenderness and no deformity was found on exam, no costochondral pain or discomfort. Heart: Irregular rate and rhythm, S1, S2 positive S3 with systolic murmur. Back: Symmetric, no curvature, ROM normal, no CVA tenderness. Abdomen: Soft, non-tender, bowel sounds active all four quadrants, no masses, no organomegaly. Extremities: Extremities normal, atraumatic, no cyanosis 1+ edema Pulses: 2+ and symmetric. Skin: Skin color, texture, tugor normal, no rashes or lesions. Neurologic: Alert oriented severely confuse cranial nerves II through XII int act, no motor deficit, no abnormal balance or gait - Labs CBC & Chem 7: 08/28/20 07:16 08/27/20 07:06 Labs: Abnormal Lab Results - Last 24 Hours (Table) 08/29/20 Range/Units 10:54 Ferritin 1338.0 H (10.0-291.0) ng/mL Microbiology - Last 24 Hours (Table) 08/27/20 01:09 Blood Culture - Preliminary Blood No Growth after 72 hours 08/27/20 01:09 Blood Culture - Preliminary Blood No Growth after 72 hours Assessment and Plan Plan: 1. Acute hypoxic respiratory failure. Patient started on dexamethasone 6 mg IV push daily, pulmonary consulted. Patient still been treated for Covid 19 pneumonitis along with aspiration pneumonia. 2. COVID19 pneumonia. Started on dexamethasone 6 mg IV push, pulmonary on consult. 3 aspiration pneumonia: Mostly gram-negative, patient been on Zosyn continue steroid continue oxygen supportive care and updraft treatment. Significant improvement compared with her admission 4. Chronic systolic and diastolic congestive heart failure. Last echocardiogram was February of 2020, showed ejection fraction of less than 20% with grade 3 diastolic dysfunction. Continue Lasix 40 mg daily, lisinopril 5 mg daily, and metoprolol 25 mg daily. 5. Chronic atrial fibrillation. Continue metoprolol 25 mg daily along with Coumadin 6. Hypertension. Continue lisinopril 5 mg daily and metoprolol 25 mg daily 7. Advanced dementia. Continue donepezil 10 mg twice a day and Namenda 10 mg twice a day. Patient is not competitive she is more confused but not wondering still not climbing out of her bed and more calm that she is laying in bed most of the time. 8. Gout. Continue allopurinol 300 mg daily. 9 Hyperlipidemia. Continue atorvastatin 10 mg daily. 10. GI prophylaxis continue pantoprazole 40 mg daily The above impression and plan of care have been discussed and directed by signing physician. Yadi Balderas nurse practitioner acting as scribe for signing physician.
[2020-08-30 13:40] LABS: INR 3.5 (<1.2); Prothrombin Time 34.2 sec (9.0-12.0)
--- NOTE | 2020-08-30 15:20 | P.PN ---
Subjective Progress Note Date: 08/30/20 Principal diagnosis: Covid 19 pneumonitis 80-year-old white female patient who is a poor historian, has a history of Alzheimer's dementia resides at [facility] and rehab was brought into the hospital on 08/27/2020 for evaluation of increased shortness of breath and chest discomfort and altered mental status. Patient was diagnosed with COVID 19 on 08/17/2020. She did have a fever at the [facility]. She was placed on 100% nonrebreather with O2 sat of 93%. Appeared to be quite drowsy however did not seem to be in any respiratory distress. NO history of nausea vomiting or d iarrhea, no history of abdominal pain. Chest x-ray shows infiltrates in the mid and lower left chest that are new from her previous chest x-ray on 07/11/2020. EKG showed A. fib with RVR with a rate of 110 BPM, incomplete left bundle branch block and nonspecific ST and T wave abnormalities. Did have a low-grade fever on presentation with a temp of 99.8F. Currently remains on 15 L of oxygen, she is very confused, she frequently removes her oxygen, and becomes more confused, her pulse ox on 15 L is 99%, slightly tachycardic with a rate of 100-104 BPM, blood pressure is 107/66. She is mildly tachypneic, but appears to be in no acute distress, no cough, lung sounds are diminished, with some basilar crackles, appears to be quite comfortable, abdomen is soft, is quite confused, she is not able to provide any history. Today's labs have been reviewed showing white blood cell count 8.1, hemoglobin of 16.2, platelet count of 129, she is lymphopenic with a lymphocyte count of 0.4, INR 1.5, d-dimer was 1.3 on initial set of blood work, down to 0.9 on today's labs, electrolytes are within normal limits, BUN of 31 creatinine 0.59, lactic acid of 1.8, ferritin is 886, LDH was 1038, CRP was 163, pro-calcitonin level was 4.8. Patient was started on IV steroids with dexamethasone 6 mg daily, Coumadin, she did receive a dose of Lovenox. The patient is seen today the summer in follow-up on the selective care unit. She is currently resting fairly comfortably in bed. She is on 9 L high flow nasal cannula to maintain O2 saturation in the 90s. White count 13.4. Hemoglobin 15.0. Leukocytes 0.5. INR 1.9. Remains on Zosyn. Dexamethasone. Anticoagulated with warfarin. The patient is seen today 08/29/2020 in follow-up on the selective care unit. She remains awake and alert in no acute distress. Currently maintaining O2 saturations in the 90s now on 3 L high flow nasal cannula. She's been afebrile. Hemodynamically stable. Blood cultures reveal no growth. INR 3.0. D-dimer 0.96. LDH 1108. C-reactive protein 54.7. She remains on Zosyn, anticoagulated with warfarin. Continued on dexamethasone and vitamin supplements. Chest x-ray continues to show bilateral diffuse airspace infiltrates. On 08/30/2020 patient seen in follow-up on medical surgical floor, patient's record confused, she takes her oxygen off, needs redirection, and needs reminder to leave the oxygen on, earlier she was sat 91-94% on 4 L, we'll place the oxygen back on, does not appear to be in any acute distress, breathing is nonlabored, vital signs are stable, she is afebrile. Yesterday chest x-ray showed progression of bilateral diffuse airspace infiltrates with sparing of the right lateral lung base and left upper lobe. Today's labs have been reviewed, INR is 3.5, her last d-dimer yesterday was 0.96, her ferritin level was still quite elevated on yesterday's labs at 1338, her LDH was actually up to 1108 1038. CRP down to 54.7 down from 163.5. She is on Zosyn for empiric antibiotic coverage, she is on Coumadin, and her INR is therapeutic Objective - Vital Signs Vital signs: Vital Signs Temp 98.3 F 08/30/20 10:00 Pulse 60 08/30/20 14:00 Resp 19 08/30/20 14:00 BP 129/66 08/30/20 10:00 Pulse Ox 91 L 08/30/20 10:00 Intake & Output 08/29/20 08/30/20 08/30/20 18:59 06:59 18:59 Intake Total 350 480 Balance 350 480 Intake: Intake, IV Titration 100 Amount Piperacillin-Tazobactam 3 100 .375 gm In Sodium Chloride 0.9% 100 ml @ 25 mls/hr IVPB Q[facility]HR [facility] Rx# :[id number] Oral 250 480 Other: Voiding Method Diaper Diaper Diaper # Voids 1 1 2 # Bowel Movements 0 1 - Exam GENERAL EXAM: Alert, restless and confused, 80-year-old white female, resting in bed, frequently removing her oxygen cannula off comfortable in no apparent distress. HEAD: Normocephalic/atraumatic. EYES: Normal reaction of pupils, equal size. Conjunctiva pink, sclera white. NOSE: Clear with pink turbinates. THROAT: No erythema or exudates. NECK: No masses, no JVD, no thyroid enlargement, no adenopathy. CHEST: No chest wall deformity. Symmetrical expansion. LUNGS: Equal air entry with diminished breath sounds, with bibasilar crackles CVS: Regular rate and rhythm, normal S1 and S2, no gallops, no murmurs, no rubs ABDOMEN: Soft, nontender. No hepatosplenomegaly, normal bowel sounds, no guarding or rigidity. EXTREMITIES: No clubbing, no edema, no cyanosis, 2+ pulses and upper and lower extremities. MUSCULOSKELETAL: Muscle strength and tone normal. SPINE: No scoliosis or deformity SKIN: No rashes CENTRAL NERVOUS SYSTEM: Alert and oriented -1. No focal deficits, tone is normal in all 4 extremities. PSYCHIATRIC: Alert and oriented -1. Appropriate affect. Intact judgment and insight. - Labs CBC & Chem 7: 08/28/20 07:16 08/27/20 07:06 Labs: Abnormal Lab Results - Last 24 Hours (Table) 08/29/20 08/30/20 Range/Units 10:54 12:54 PT 34.2 H (9.0-12.0) sec INR 3.5 H (<1.2) Ferritin 1338.0 H (10.0-291.0) ng/mL Microbiology - Last 24 Hours (Table) 08/27/20 01:09 Blood Culture - Preliminary Blood No Growth after 72 hours 08/27/20 01:09 Blood Culture - Preliminary Blood No Growth after 72 hours Assessment and Plan Plan: Assessment: #1. Acute hypoxic respiratory failure related to COVID 19 pneumonia, and there is also possibility of a bacterial superinfection related to elevated pro calcitonin #2. Altered mental status, related to acute metabolic encephalopathy related to sepsis and hypoxemia #3. Elevated inflammatory markers related to COVID 19 infection #4. History of A. fib, on Coumadin on the regular basis #5. History of Alzheimer's dementia #6. Hypertension #7. History of CHF unspecified Plan: Vital signs are stable, continue weaning FiO2, continue with empiric antibiotics, will obtain follow-up pro-calcitonin level, follow-up chest x-ray and inflammatory markers. INR is therapeutic today, continue safety precautions, continue with aspiration precautions, frequent supervision to prevent the patient from removing her oxygen. Continue with oral Decadron, and vitamins. I performed a history & physical examination of the patient and discussed their management with my nurse practitioner, Kathie Anderson. I reviewed the nurse practitioner's note and agree with the documented findings and plan of care. Lung sounds are positive for diminished breath sounds. The findings and the impression was discussed with the patient. I attest to the documentation by the nurse practitioner. Time with Patient: Less than 30
[2020-08-30] MEDS ORDERED: WARFARIN 0.5 MG TAB PO ONE (18:00)
[2020-08-30] MEDS: METOPROLOL SUCCINATE (ER) 25 MG TAB.ER.24H PO SCH (20:12)
[2020-08-30] MEDS: ATORVASTATIN 10 MG TAB PO SCH (20:12)
[2020-08-30] MEDS: MELATONIN 3 MG TABLET PO SCH (20:13)
[2020-08-31] MEDS: PIPERACILLIN-TAZOBACTAM 3.375 GM in SODIUM CHLORIDE 0.9% 100 ML IVPB SCH ×3 (00:01→15:54)
[2020-08-31] MEDS: DONEPEZIL 10 MG TAB PO SCH ×2 (05:34→20:58)
[2020-08-31] MEDS: FUROSEMIDE 40 MG TAB PO SCH (05:34)
[2020-08-31] MEDS: METHYLPHENIDATE HCL 10 MG TAB PO SCH ×2 (05:34→14:57)
[2020-08-31] MEDS: CHOLECALCIFEROL 1,000 UNIT TAB PO SCH (05:34)
[2020-08-31] MEDS: allopurinoL 300 MG TAB PO SCH (05:34)
[2020-08-31] MEDS: MEMANTINE 10 MG TAB PO SCH ×2 (05:34→20:58)
[2020-08-31] MEDS: CYANOCOBALAMIN 500 MCG TAB PO SCH (05:35)
[2020-08-31] MEDS: PANTOPRAZOLE 40 MG TABLET PO SCH (07:52)
[2020-08-31] MEDS: MAGNESIUM OXIDE 400 MG TAB PO SCH (07:52)
[2020-08-31] MEDS: lisinopriL 5 MG TAB PO SCH (07:52)
[2020-08-31] MEDS: guaiFENesin SYRUP 100MG/5ML 200 MG/10 ML CUP PO SCH ×2 (07:52→20:58)
[2020-08-31] MEDS: DEXAMETHASONE SOD PHOSPHATE 10 MG/ML 1 ML VIAL IV SCH (07:52)
[2020-08-31] MEDS: VALPROIC ACID ORAL SOLN 250 MG/5 ML CUP PO SCH ×2 (07:52→20:58)
--- NOTE | 2020-08-31 07:55 | XR ---
EXAMINATION TYPE: XR chest 1V portable DATE OF EXAM: 08/31/2020 COMPARISON: Prior chest x-ray 08/29/2020 HISTORY: Covid 19 pneumonia TECHNIQUE: Single frontal view of the chest is obtained. FINDINGS: Bilateral airspace disease is again noted. Heart may be enlarged. Right hemidiaphragm is e levated. Left hemidiaphragm is obscured. No pneumothorax. Aorta is dense. IMPRESSION: Bilateral pneumonia. Difficult to exclude pleural effusion. Heart size is likely stable.
--- NOTE | 2020-08-31 13:23 | P.PN ---
Subjective This is 80-year-old female patient of Dr. Scott, with a past medical history of advanced dementia, hypertension, atrial fibrillation, and congestive heart failure. 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 During routine testing last week at [facility] patient tested positive for COVID on 08/17. Patient was doing well without significant symptoms. Apparently last night the nurse had noted her to be in respiratory distress with hypoxia and she developed a fever. At that point she was transferred to the hospital. Upon arrival, temperature w as 99.8 and she was 91% on a nonrebreather. Chest x-ray showed infiltrates in the mid and lower left chest. Labs showed WBC 8.1, hemoglobin 16.2, platelet 129, d-dimer 0.97, BUN 31, creatinine 0.59, alk phos 96, LDH 1038, C-reactive protein 163.5. Patient was started on dexamethasone 6 mg IV. Blood cultures obtained and pulmonary consulted. 08/28: Patient is slightly better pulse ox has improved some, temperature is down compared to before, she is more awake alert and more interactive still very confused at the time. Her Covid 19 marker are extremely high patient is not on any antiviral medication still only on dexamethasone along with treatment for aspiration pneumonia. 08/29: Patient is clinically doing much better been treated for aspiration pneumonia in the Covid her oxygen saturation has been better on low-flow oxygen. No further fever or chills if agreeable by pulmonary patient is more stable might be able to send her back to [facility] sometimes on Sunday or Sunday. 08/30: Patient continues to do well. Her vital signs are stable, she is afebrile 98.3, heart rate in the 60s, respiratory 19, blood pressure 129/66. She continues on 4 L of oxygen via nasal cannula 91%. She continues on dexamethasone 6 mg daily. Ferritin 1338, LDH 1108, C-reactive protein is 54.7. If cleared by pulmonary, patient may be able to return to [facility] tomorrow. 08/31: Patient evaluated, resting in bed, patient continues to be restless and confused, which is baseline for her, she is in no acute distress. She continues to need constant redirection, constant reminders to keep the oxygen on. Repeat chest x-ray continues to show bilateral pneumonia. She continues on Zosyn, blood cultures show no growth to date. She is afebrile temperature 98.6, heart rate is 74, respiratory rate of 23, blood pressure 132/83 she continues on 5 L via nasal cannula O2 saturation of 92%. She continues on dexamethasone. Will continue to try to wean o2 and hold discharge for today. Objective - Vital Signs Vital signs: Vital Signs Temp 98.6 F 08/31/20 10:22 Pulse 74 08/31/20 10:22 Resp 23 08/31/20 10:22 BP 132/83 08/31/20 10:22 Pulse Ox 92 L 08/31/20 10:22 Intake & Output 08/30/20 08/31/20 08/31/20 18:59 06:59 18:59 Intake Total 830 Balance 830 Weight 73 kg Intake: Oral 830 Other: Voiding Method Diaper Diaper Diaper # Voids 3 1 2 - Exam General Appearance: Alert, severely confused, restless Neck HEENT: Supple, no lymphadenopathy, no thyroid enlargement, no carotid bruits. Lungs: Decreased breath some bilateral rhonchi Chest Wall: Decrease expansion with deep inspiration no tenderness and no defor mity was found on exam, no costochondral pain or discomfort. Heart: Irregular rate and rhythm, S1, S2 positive S3 with systolic murmur. Back: Symmetric, no curvature, ROM normal, no CVA tenderness. Abdomen: Soft, non-tender, bowel sounds active all four quadrants, no masses, no organomegaly. Extremities: Extremities normal, atraumatic, no cyanosis 1+ edema Pulses: 2+ and symmetric. Skin: Skin color, texture, tugor normal, no rashes or lesions. Neurologic: Alert oriented severely confuse cranial nerves II through XII intact, no motor deficit, no abnormal balance or gait - Labs CBC & Chem 7: 08/28/20 07:16 08/27/20 07:06 Labs: Abnormal Lab Results - Last 24 Hours (Table) 08/30/20 Range/Units 12:54 PT 34.2 H (9.0-12.0) sec INR 3.5 H (<1.2) Microbiology - Last 24 Hours (Table) 08/27/20 01:09 Blood Culture - Preliminary Blood No Growth after 96 hours 08/27/20 01:09 Blood Culture - Preliminary Blood No Growth after 96 hours Assessment and Plan Plan: 1. Acute hypoxic respiratory failure. Patient started on dexamethasone 6 mg IV push daily, pulmonary on consult. Patient still been treated for Covid 19 pneumonitis along with aspiration pneumonia. 2. COVID19 pneumonia. Started on dexamethasone 6 mg IV push, pulmonary on consult. 3 aspiration pneumonia: Mostly gram-negative, patient been on Zosyn continue steroid continue oxygen supportive care and updraft treatment. Significant improvement compared with her admission 4. Chronic systolic and diastolic congestive heart failure. Last echocardiogram was February of 2020, showed ejection fraction of less than 20% with grade 3 diastolic dysfunction. Continue Lasix 40 mg daily, lisinopril 5 mg daily, and metoprolol 25 mg daily. 5. Chronic atrial fibrillation. Continue metoprolol 25 mg daily along with Coumadin 6. Hypertension. Continue lisinopril 5 mg daily and metoprolol 25 mg daily 7. Advanced dementia. Continue donepezil 10 mg twice a day and Namenda 10 mg twice a day. Patient is not competitive she is more confused but not wondering still not climbing out of her bed and more calm that she is laying in bed most of the time. 8. Gout. Continue allopurinol 300 mg daily. 9 Hyperlipidemia. Continue atorvastatin 10 mg daily. 10. GI prophylaxis continue pantoprazole 40 mg daily The above impression and plan of care have been discussed and directed by signing physician. Yadi Balderas nurse practitioner acting as scribe for signing physician.
--- NOTE | 2020-08-31 14:40 | P.PN ---
Subjective Progress Note Date: 08/31/20 Principal diagnosis: Covid 19 pneumonitis 80-year-old white female patient who is a poor historian, has a history of Alzheimer's dementia resides at [facility] and rehab was brought into the hospital on 08/27/2020 for evaluation of increased shortness of breath and chest discomfort and altered mental status. Patient was diagnosed with COVID 19 on 08/17/2020. She did have a fever at the [facility]. She was placed on 100% nonrebreather with O2 sat of 93%. Appeared to be quite drowsy however did not seem to be in any respiratory distress. NO history of nausea vomiting or d iarrhea, no history of abdominal pain. Chest x-ray shows infiltrates in the mid and lower left chest that are new from her previous chest x-ray on 07/11/2020. EKG showed A. fib with RVR with a rate of 110 BPM, incomplete left bundle branch block and nonspecific ST and T wave abnormalities. Did have a low-grade fever on presentation with a temp of 99.8F. Currently remains on 15 L of oxygen, she is very confused, she frequently removes her oxygen, and becomes more confused, her pulse ox on 15 L is 99%, slightly tachycardic with a rate of 100-104 BPM, blood pressure is 107/66. She is mildly tachypneic, but appears to be in no acute distress, no cough, lung sounds are diminished, with some basilar crackles, appears to be quite comfortable, abdomen is soft, is quite confused, she is not able to provide any history. Today's labs have been reviewed showing white blood cell count 8.1, hemoglobin of 16.2, platelet count of 129, she is lymphopenic with a lymphocyte count of 0.4, INR 1.5, d-dimer was 1.3 on initial set of blood work, down to 0.9 on today's labs, electrolytes are within normal limits, BUN of 31 creatinine 0.59, lactic acid of 1.8, ferritin is 886, LDH was 1038, CRP was 163, pro-calcitonin level was 4.8. Patient was started on IV steroids with dexamethasone 6 mg daily, Coumadin, she did receive a dose of Lovenox. The patient is seen today the summer in follow-up on the selective care unit. She is currently resting fairly comfortably in bed. She is on 9 L high flow nasal cannula to maintain O2 saturation in the 90s. White count 13.4. Hemoglobin 15.0. Leukocytes 0.5. INR 1.9. Remains on Zosyn. Dexamethasone. Anticoagulated with warfarin. The patient is seen today 08/29/2020 in follow-up on the selective care unit. She remains awake and alert in no acute distress. Currently maintaining O2 saturations in the 90s now on 3 L high flow nasal cannula. She's been afebrile. Hemodynamically stable. Blood cultures reveal no growth. INR 3.0. D-dimer 0.96. LDH 1108. C-reactive protein 54.7. She remains on Zosyn, anticoagulated with warfarin. Continued on dexamethasone and vitamin supplements. Chest x-ray continues to show bilateral diffuse airspace infiltrates. On 08/30/2020 patient seen in follow-up on medical surgical floor, patient's record confused, she takes her oxygen off, needs redirection, and needs reminder to leave the oxygen on, earlier she was sat 91-94% on 4 L, we'll place the oxygen back on, does not appear to be in any acute distress, breathing is nonlabored, vital signs are stable, she is afebrile. Yesterday chest x-ray showed progression of bilateral diffuse airspace infiltrates with sparing of the right lateral lung base and left upper lobe. Today's labs have been reviewed, INR is 3.5, her last d-dimer yesterday was 0.96, her ferritin level was still quite elevated on yesterday's labs at 1338, her LDH was actually up to 1108 1038. CRP down to 54.7 down from 163.5. She is on Zosyn for empiric antibiotic coverage, she is on Coumadin, and her INR is therapeutic On 08/31/2020 patient seen in follow-up on medical surgical floor. She is awake and alert, in no acute distress, currently on 4 L of oxygen, he she frequently removes her oxygen and the nurses keep reapplying it, this afternoon and he has been bumped up to 5 L, and she sat 92-94%, does not appear to be any respiratory distress, she is afebrile, hemodynamically stable, she is confused, and patient does have underlying history of advanced dementia. No cough, no complaints of chest discomfort his chest x-ray has been reviewed showing bilateral airspace disease, with elevation of right hemidiaphragm and possibility of left pleural effusion. Patient is on empiric hematocrit hours in the form of Zosyn. Blood cultures have been negative, patient has been afebrile. Her last d-dimer is 0.96, INR is 3.5, she is on Coumadin for anticoagulation. Objective - Vital Signs Vital signs: Vital Signs Temp 98.6 F 08/31/20 10:22 Pulse 74 08/31/20 10:22 Resp 23 08/31/20 10:22 BP 132/83 08/31/20 10:22 Pulse Ox 92 L 08/31/20 10:22 Intake & Output 08/30/20 08/31/20 08/31/20 18:59 06:59 18:59 Intake Total 830 Balance 830 Weight 73 kg Intake: Oral 830 Other: Voiding Method Diaper Diaper Diaper # Voids 3 1 2 - Exam GENERAL EXAM: Alert, confused, 80-year-old white female, resting in bed, frequently removing her oxygen cannula off comfortable in no apparent distress. HEAD: Normocephalic/atraumatic. EYES: Normal reaction of pupils, equal size. Conjunctiva pink, sclera white. NOSE: Clear with pink turbinates. THROAT: No erythema or exudates. NECK: No masses, no JVD, no thyroid enlargement, no adenopathy. CHEST: No chest wall deformity. Symmetrical expansion. LUNGS: Equal air entry with diminished breath sounds, with bibasilar crackles CVS: Regular rate and rhythm, normal S1 and S2, no gallops, no murmurs, no rubs ABDOMEN: Soft, nontender. No hepatosplenomegaly, normal bowel sounds, no guarding or rigidity. EXTREMITIES: No clubbing, no edema, no cyanosis, 2+ pulses and upper and lower extremities. MUSCULOSKELETAL: Muscle strength and tone normal. SPINE: No scoliosis or deformity SKIN: No rashes CENTRAL NERVOUS SYSTEM: Alert and oriented -1. No focal deficits, tone is normal in all 4 extremities. PSYCHIATRIC: Alert and oriented -1. Appropriate affect. Intact judgment and insight. - Labs CBC & Chem 7: 08/28/20 07:16 08/27/20 07:06 Labs: Microbiology - Last 24 Hours (Table) 08/27/20 01:09 Blood Culture - Preliminary Blood No Growth after 96 hours 08/27/20 01:09 Blood Culture - Preliminary Blood No Growth after 96 hours Assessment and Plan Plan: Assessment: #1. Acute hypoxic respiratory failure related to COVID 19 pneumonia, and there is also possibility of a bacterial superinfection related to elevated pro calcitonin #2. Altered mental status, related to acute metabolic encephalopathy related to sepsis and hypoxemia #3. Elevated inflammatory markers related to COVID 19 infection #4. History of A. fib, on Coumadin on the regular basis #5. History of Alzheimer's dementia #6. Hypertension #7. History of CHF unspecified Plan: Continue current antibiotic coverage, awaiting pro calcitonin level, less signs have been stable, still requiring supplemental oxygen, no worsening dyspnea, today's chest x-ray has been reviewed showing persistence of bilateral airspace disease with the possibility of small left pleural effusion, maintain aspiration precautions, right supervision with meals, provide supervision to prevent the patient from removing her oxygen, continue Zosyn for antibiotic coverage, continue Coumadin for anticoagulation, and oral steroids, we'll continue to follow I performed a history & physical examination of the patient and discussed their management with my nurse practitioner, Kathie Anderson. I reviewed the nurse practitioner's note and agree with the documented findings and plan of care. Lung sounds are positive for diminished breath sounds. The findings and the impression was discussed with the patient. I attest to the documentation by the nurse practitioner. Time with Patient: Less than 30
[2020-08-31 16:49] LABS: INR 3.56 (0.90-1.11)
[2020-08-31 17:19] LABS: C Reactive Protein 3.3 mg/dL (0.0-0.8); Ferritin 1058.8 ng/mL (10.0-291.0)
[2020-08-31] MEDS ORDERED: WARFARIN 0.5 MG TAB PO ONE (18:00)
[2020-08-31] MEDS: MELATONIN 3 MG TABLET PO SCH (20:58)
[2020-08-31] MEDS: METOPROLOL SUCCINATE (ER) 25 MG TAB.ER.24H PO SCH (20:58)
[2020-08-31] MEDS: ATORVASTATIN 10 MG TAB PO SCH (20:58)
[2020-09-01] MEDS: PIPERACILLIN-TAZOBACTAM 3.375 GM in SODIUM CHLORIDE 0.9% 100 ML IVPB SCH ×2 (00:53→08:03)
[2020-09-01] MEDS: CYANOCOBALAMIN 500 MCG TAB PO SCH (04:57)
[2020-09-01] MEDS: DONEPEZIL 10 MG TAB PO SCH (04:57)
[2020-09-01] MEDS: allopurinoL 300 MG TAB PO SCH (04:57)
[2020-09-01] MEDS: CHOLECALCIFEROL 1,000 UNIT TAB PO SCH (04:57)
[2020-09-01] MEDS: METHYLPHENIDATE HCL 10 MG TAB PO SCH ×2 (04:57→12:27)
[2020-09-01] MEDS: FUROSEMIDE 40 MG TAB PO SCH (04:57)
[2020-09-01] MEDS: MEMANTINE 10 MG TAB PO SCH (04:57)
[2020-09-01] MEDS: DEXAMETHASONE SOD PHOSPHATE 10 MG/ML 1 ML VIAL IV SCH (08:02)
[2020-09-01] MEDS: guaiFENesin SYRUP 100MG/5ML 200 MG/10 ML CUP PO SCH (08:03)
[2020-09-01] MEDS: lisinopriL 5 MG TAB PO SCH (08:03)
[2020-09-01] MEDS: PANTOPRAZOLE 40 MG TABLET PO SCH (08:03)
[2020-09-01] MEDS: VALPROIC ACID ORAL SOLN 250 MG/5 ML CUP PO SCH (08:04)
[2020-09-01] MEDS: MAGNESIUM OXIDE 400 MG TAB PO SCH (08:04)
[2020-09-01] MEDS: LORazepam 2 MG/ML INJ IV PRN (08:20)
[2020-09-01 09:46] LABS: INR 3.2 (0.90-1.11); Prothrombin Time 31.7 sec (9.9-11.9)
[2020-09-01 09:51] VITALS: RESP 20
--- NOTE | 2020-09-01 11:06 | P.DS ---
Providers Date of admission: 08/27/20 02:27 Expected date of discharge: 09/01/20 Attending physician: Liliana Vilchis Consults: 08/27/20 02:50 Consult Physician Routine Consulting Provider: Dani Scruggs Consult Reason/Comments: covid Do you want consulting provider notified?: Yes Primary care physician: [facility] Course: This is 80-year-old female patient of Dr. Scott, with a past medical history of advanced dementia, hypertension, atrial fibrillation, and congestive heart failure. 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 During routine testing last week at [facility] patient tested positive for COVID on 08/17. Patient was doing well without significant symptoms. Apparently last night the nurse had noted her to be in respiratory distress with hypoxia and she developed a fever. At that point she was transferred to the hospital. Upon arrival, temperature was 99.8 and she was 91% on a nonrebreather. Chest x-ray showed infiltrates in the mid and lower left chest. Labs showed WBC 8.1, hemoglobin 16.2, platelet 129, d-dimer 0.97, BUN 31, creatinine 0.59, alk phos 96, LDH 1038, C-reactive protein 163.5. Patient was started on dexamethasone 6 mg IV. Blood cultures obtained and pulmonary consulted. 08/28: Patient is slightly better pulse ox has improved some, temperature is down compared to before, she is more awake alert and more interactive still very confused at the time. Her Covid 19 marker are extremely high patient is not on any antiviral medication still only on dexamethasone along with treatment for aspiration pneumonia. 08/29: Patient is clinically doing much better been treated for aspiration pneumonia in the Covid her oxygen saturation has been better on low-flow oxygen. No further fever or chills if agreeable by pulmonary patient is more stable might be able to send her back to [facility] sometimes on Sunday or Sunday. 08/30: Patient continues to do well. Her vital signs are stable, she is afebrile 98.3, heart rate in the 60s, respiratory 19, blood pressure 129/66. She continues on 4 L of oxygen via nasal cannula 91%. She continues on dexamethasone 6 mg daily. Ferritin 1338, LDH 1108, C-reactive protein is 54.7. If cleared by pulmonary, patient may be able to return to [facility] tomorrow. 08/31: Patient evaluated, resting in bed, patient continues to be restless and confused, which is baseline for her, she is in no acute distress. She continues to need constant redirection, constant reminders to keep the oxygen on. Repeat chest x-ray continues to show bilateral pneumonia. She continues on Zosyn, blood cultures show no growth to date. She is afebrile temperature 98.6, heart rate is 74, respiratory rate of 23, blood pressure 132/83 she continues on 5 L via nasal cannula O2 saturation of 92%. She continues on dexamethasone. Will continue to try to wean o2 and hold discharge for today. 09/01: Patient resting in bed comfortably, she is lethargic, but is easily arousable. Per nursing staff patient had a very restless night, was very anxious and was given 1 dose of Ativan. Patient's respiratory status has not improved much, so continues to need supplemental oxygen. Patient's dementia seems to be worsening, she is very high risk for aspiration. Had long discussion with patient's son today regarding's patients poor prognosis, family would like hospice initiated once she is back at [facility]. Patient will be transferred back to [facility] today and hospice consult will be placed. Discharge diagnoses 1. Acute hypoxic respiratory failure. 2. COVID19 pneumonia. 3 aspiration pneumonia 4. Chronic systolic and diastolic congestive heart failure 5. Chronic atrial fibrillation. 6. Hypertension. 7. Advanced dementia 8. Gout. 9 Hyperlipidemia. The above impression and plan of care have been discussed and directed by signing physician. Yadi Balderas nurse practitioner acting as scribe for signing physician. Patient Condition at Discharge: Poor Plan - Discharge Summary Discharge Rx Participant: No New Discharge Prescriptions: No Action Cyanocobalamin [Vitamin B-12] 500 mcg PO DAILY@1700 Memantine [Namenda] 10 mg PO BID@0800,2100 Lovastatin [Mevacor] 20 mg PO HS@2100 allopurinoL [Zyloprim] 300 mg PO DAILY@0600 Furosemide [Lasix] 40 mg PO BID@0800,1700 Magnesium Oxide 400 mg PO DAILY #30 tablet lisinopriL [Zestril] 5 mg PO DAILY #30 tablet Zinc Sulfate 220 mg PO DAILY@0800 Warfarin Sodium [Jantoven] 5 mg PO DAILY@1630 traZODone HCL 100 mg PO HS@2100 Sennosides/Docusate Sodium [Senna Plus 8.6-50 mg Softgel] 1 tab PO BID@0800,1700 Polyethylene Glycol 3350 [Miralax] 17 gm PO DAILY@0800 Mirtazapine [Remeron] 15 mg PO HS@2100 Magnesium Hydroxide [Milk of Magnesia] 2,400 mg PO DAILY PRN PRN Reason: 2DAYS Constipation Metoprolol Tartrate [Lopressor] 25 mg PO BID@0800,1700 Melatonin 5 mg PO HS@2100 guaiFENesin [guaiFENesin Oral Solution] 200 mg PO Q4H PRN PRN Reason: Cough Na Phos,M-B/Na Phos,Di-Ba [Fleet Adult] 133 ml RECTAL DAILY PRN PRN Reason: Constipation bisacodyL [Dulcolax] 10 mg RECTAL DAILY PRN PRN Reason: Constipation Ipratropium-Albuterol Nebulize [Duoneb 0.5 mg-3 mg/3 ml Soln] 3 ml INHALATION RT-Q6H PRN PRN Reason: Shortness Of Breath Valproic Acid Oral Soln [Depakene Syrup] 250 mg PO BID@0800,1700 LORazepam [Ativan] 0.5 mg PO TID@0800,1200,1700 Cholecalciferol [Vitamin D3 (25 Mcg = 1000 Iu)] 1,000 unit PO DAILY@0800 Acetaminophen [Tylenol Arthritis] 650 mg PO Q4H PRN PRN Reason: Pain Ascorbic Acid [Vitamin C] 1,000 mg PO DAILY@0800 Magic Cup 1 can PO BID@1200,1700 Cholecalciferol [Vitamin D3 (25 Mcg = 1000 Iu)] 2,000 unit PO DAILY Lactose-Reduced Food [Ensure Plus] 1 can PO TID@0800,1200,1700 Discharge Medication List Cyanocobalamin [Vitamin B-12] 500 mcg PO DAILY@1700 12/22/19 [History] Lovastatin [Mevacor] 20 mg PO HS@209912/22/19 [History] Memantine [Namenda] 10 mg PO BID@0800,2100 12/22/19 [History] allopurinoL [Zyloprim] 300 mg PO DAILY@0600 12/22/19 [History] Furosemide [Lasix] 40 mg PO BID@0800,1700 02/18/20 [History] Magnesium Oxide 400 mg PO DAILY #30 tablet 02/20/20 [Rx] lisinopriL [Zestril] 5 mg PO DAILY #30 tablet 02/20/20 [Rx] Acetaminophen [Tylenol Arthritis] 650 mg PO Q4H PRN 08/27/20 [History] Ascorbic Acid [Vitamin C] 1,000 mg PO DAILY@0800 08/27/20 [History] Cholecalciferol [Vitamin D3 (25 Mcg = 1000 Iu)] 1,000 unit PO DAILY@0800 08/27/20 [History] Cholecalciferol [Vitamin D3 (25 Mcg = 1000 Iu)] 2,000 unit PO DAILY 08/27/20 [History] Ipratropium-Albuterol Nebulize [Duoneb 0.5 mg-3 mg/3 ml Soln] 3 ml INHALATION RT-Q6H PRN 08/27/20 [History] LORazepam [Ativan] 0.5 mg PO TID@0800,1200,1700 08/27/20 [History] Lactose-Reduced Food [Ensure Plus] 1 can PO TID@0800,1200,1700 08/27/20 [History] Magic Cup 1 can PO BID@1200,1700 08/27/20 [History] Magnesium Hydroxide [Milk of Magnesia] 2,400 mg PO DAILY PRN 08/27/20 [History] Melatonin 5 mg PO HS@209908/27/20 [History] Metoprolol Tartrate [Lopressor] 25 mg PO BID@0800,1700 08/27/20 [History] Mirtazapine [Remeron] 15 mg PO HS@209908/27/20 [History] Na Phos,M-B/Na Phos,Di-Ba [Fleet Adult] 133 ml RECTAL DAILY PRN 08/27/20 [History] Polyethylene Glycol 3350 [Miralax] 17 gm PO DAILY@0800 08/27/20 [History] Sennosides/Docusate Sodium [Senna Plus 8.6-50 mg Softgel] 1 tab PO BID@0800,1700 08/27/20 [History] Valproic Acid Oral Soln [Depakene Syrup] 250 mg PO BID@0800,1700 08/27/20 [History] Warfarin Sodium [Jantoven] 5 mg PO DAILY@1630 08/27/20 [History] Zinc Sulfate 220 mg PO DAILY@0800 08/27/20 [History] bisacodyL [Dulcolax] 10 mg RECTAL DAILY PRN 08/27/20 [History] guaiFENesin [guaiFENesin Oral Solution] 200 mg PO Q4H PRN 08/27/20 [History] traZODone HCL 100 mg PO HS@2100 08/27/20 [History] Follow up Appointment(s)/Referral(s): David Scott MD [Primary Care Provider] - 1-2 days
[2020-09-01 13:14] VITALS: BMI 26.7
[2020-09-01 13:52] VITALS: BP 100/68; PULSE 69; TEMP 97.9
--- NOTE | 2020-09-01 15:16 | P.PN ---
Subjective Progress Note Date: 09/01/20 Principal diagnosis: Covid 19 pneumonitis 80-year-old white female patient who is a poor historian, has a history of Alzheimer's dementia resides at [facility] and rehab was brought into the hospital on 08/27/2020 for evaluation of increased shortness of breath and chest discomfort and altered mental status. Patient was diagnosed with COVID 19 on 08/17/2020. She did have a fever at the [facility]. She was placed on 100% nonrebreather with O2 sat of 93%. Appeared to be quite drowsy however did not seem to be in any respiratory distress. NO history of nausea vomiting or d iarrhea, no history of abdominal pain. Chest x-ray shows infiltrates in the mid and lower left chest that are new from her previous chest x-ray on 07/11/2020. EKG showed A. fib with RVR with a rate of 110 BPM, incomplete left bundle branch block and nonspecific ST and T wave abnormalities. Did have a low-grade fever on presentation with a temp of 99.8F. Currently remains on 15 L of oxygen, she is very confused, she frequently removes her oxygen, and becomes more confused, her pulse ox on 15 L is 99%, slightly tachycardic with a rate of 100-104 BPM, blood pressure is 107/66. She is mildly tachypneic, but appears to be in no acute distress, no cough, lung sounds are diminished, with some basilar crackles, appears to be quite comfortable, abdomen is soft, is quite confused, she is not able to provide any history. Today's labs have been reviewed showing white blood cell count 8.1, hemoglobin of 16.2, platelet count of 129, she is lymphopenic with a lymphocyte count of 0.4, INR 1.5, d-dimer was 1.3 on initial set of blood work, down to 0.9 on today's labs, electrolytes are within normal limits, BUN of 31 creatinine 0.59, lactic acid of 1.8, ferritin is 886, LDH was 1038, CRP was 163, pro-calcitonin level was 4.8. Patient was started on IV steroids with dexamethasone 6 mg daily, Coumadin, she did receive a dose of Lovenox. The patient is seen today the summer in follow-up on the selective care unit. She is currently resting fairly comfortably in bed. She is on 9 L high flow nasal cannula to maintain O2 saturation in the 90s. White count 13.4. Hemoglobin 15.0. Leukocytes 0.5. INR 1.9. Remains on Zosyn. Dexamethasone. Anticoagulated with warfarin. The patient is seen today 08/29/2020 in follow-up on the selective care unit. She remains awake and alert in no acute distress. Currently maintaining O2 saturations in the 90s now on 3 L high flow nasal cannula. She's been afebrile. Hemodynamically stable. Blood cultures reveal no growth. INR 3.0. D-dimer 0.96. LDH 1108. C-reactive protein 54.7. She remains on Zosyn, anticoagulated with warfarin. Continued on dexamethasone and vitamin supplements. Chest x-ray continues to show bilateral diffuse airspace infiltrates. On 08/30/2020 patient seen in follow-up on medical surgical floor, patient's record confused, she takes her oxygen off, needs redirection, and needs reminder to leave the oxygen on, earlier she was sat 91-94% on 4 L, we'll place the oxygen back on, does not appear to be in any acute distress, breathing is nonlabored, vital signs are stable, she is afebrile. Yesterday chest x-ray showed progression of bilateral diffuse airspace infiltrates with sparing of the right lateral lung base and left upper lobe. Today's labs have been reviewed, INR is 3.5, her last d-dimer yesterday was 0.96, her ferritin level was still quite elevated on yesterday's labs at 1338, her LDH was actually up to 1108 1038. CRP down to 54.7 down from 163.5. She is on Zosyn for empiric antibiotic coverage, she is on Coumadin, and her INR is therapeutic On 08/31/2020 patient seen in follow-up on medical surgical floor. She is awake and alert, in no acute distress, currently on 4 L of oxygen, he she frequently removes her oxygen and the nurses keep reapplying it, this afternoon and he has been bumped up to 5 L, and she sat 92-94%, does not appear to be any respiratory distress, she is afebrile, hemodynamically stable, she is confused, and patient does have underlying history of advanced dementia. No cough, no complaints of chest discomfort his chest x-ray has been reviewed showing bilateral airspace disease, with elevation of right hemidiaphragm and possibility of left pleural effusion. Patient is on empiric hematocrit hours in the form of Zosyn. Blood cultures have been negative, patient has been afebrile. Her last d-dimer is 0.96, INR is 3.5, she is on Coumadin for anticoagulation. On 09/01/2020 patient seen in follow-up on medical surgical floor, she is curren tly on 5 L of oxygen with pulse ox of 95%, her FiO2 was dropped down to 4 L, she frequently removes her oxygen, and is frequently replied by the nursing staff, but appears to be in no acute distress, no signs of any respiratory distress, she is confused, not sure exactly what her baseline mental status is but patient does have underlying history of Alzheimer's dementia, seems to breathing comfortably, denies any chest discomfort, no cough, no congestion. Today's labs have been reviewed, showing INR of 3.2, ferritin level is trending down, LDH is improving, CRP is improving, and HAS ALSO IMPROVED DOWN TO 0.61. Chest x-ray was done yesterday, showing bilateral is disease, with possibility of small pleural effusion on the left side. Objective - Vital Signs Vital signs: Vital Signs Temp 97.9 F 09/01/20 13:51 Pulse 69 09/01/20 13:51 Resp 20 09/01/20 13:51 BP 100/68 09/01/20 13:51 Pulse Ox 92 L 09/01/20 13:51 Intake & Output 08/31/20 09/01/20 09/01/20 18:59 06:59 18:59 Output Total 500 300 Balance -500 -300 Weight 73 kg Output: Urine 500 300 Other: Voiding Method Diaper Diaper Diaper Incontinent # Voids 3 2 # Bowel Movements 1 - Exam GENERAL EXAM: Alert, confused, 80-year-old white female, resting in bed, f requently removing her oxygen cannula off comfortable in no apparent distress. HEAD: Normocephalic/atraumatic. EYES: Normal reaction of pupils, equal size. Conjunctiva pink, sclera white. NOSE: Clear with pink turbinates. THROAT: No erythema or exudates. NECK: No masses, no JVD, no thyroid enlargement, no adenopathy. CHEST: No chest wall deformity. Symmetrical expansion. LUNGS: Equal air entry with diminished breath sounds, with bibasilar crackles CVS: Regular rate and rhythm, normal S1 and S2, no gallops, no murmurs, no rubs ABDOMEN: Soft, nontender. No hepatosplenomegaly, normal bowel sounds, no guarding or rigidity. EXTREMITIES: No clubbing, no edema, no cyanosis, 2+ pulses and upper and lower extremities. MUSCULOSKELETAL: Muscle strength and tone normal. SPINE: No scoliosis or deformity SKIN: No rashes CENTRAL NERVOUS SYSTEM: Alert and oriented -1. No focal deficits, tone is no rmal in all 4 extremities. PSYCHIATRIC: Alert and oriented -1. Appropriate affect. Intact judgment and insight. - Labs CBC & Chem 7: 08/28/20 07:16 08/27/20 07:06 Labs: Abnormal Lab Results - Last 24 Hours (Table) 08/31/20 08/31/20 08/31/20 Range/Units 07:59 07:59 07:59 PT 35.0 H (9.9-11.9) sec INR 3.56 H (0.90-1.11) Ferritin 1058.8 H (10.0-291.0) ng/mL Lactate Dehydrogenase 463 H (120-246) U/L C-Reactive Protein 3.3 H (0.0-0.8) mg/dL Procalcitonin 0.61 H (0.02-0.09) ng/mL 09/01/20 Range/Units 05:31 PT 31.7 H (9.9-11.9) sec INR 3.20 H (0.90-1.11) Ferritin (10.0-291.0) ng/mL Lactate Dehydrogenase (120-246) U/L C-Reactive Protein (0.0-0.8) mg/dL Procalcitonin (0.02-0.09) ng/mL Microbiology - Last 24 Hours (Table) 08/27/20 01:09 Blood Culture - Preliminary Blood No Growth after 120 hours 08/27/20 01:09 Blood Culture - Preliminary Blood No Growth after 120 hours Assessment and Plan Plan: Assessment: #1. Acute hypoxic respiratory failure related to COVID 19 pneumonia, and there is also possibility of a bacterial superinfection related to elevated pro calcitonin On 09/01/2020 patient seen in follow-up on Gen. medical surgical floor, she remains on 4 L of oxygen, she frequently removes her oxygen, she's been afebrile, she has been treated with a combination of antibiotics, steroids, she is on Coumadin for history of A. fib, her inflammatory markers have significantly improved since admission, she appears to be in no acute distress, clinically she's been stable, she is being discharged to [facility] today #2. Altered mental status, related to acute metabolic encephalopathy related to sepsis and hypoxemia #3. Elevated inflammatory markers related to COVID 19 infection #4. History of A. fib, on Coumadin on the regular basis #5. History of Alzheimer's dementia #6. Hypertension #7. History of CHF unspecified Plan: Patient has remained stable in last 24 hours, no worsening dyspnea, vital signs have been stable, she has been afebrile, no cough, no congestion, no chest pain, her inflammatory markers have improved, her procalcitonin level has improved, had no fever or chills, from pulmonary perspective patient can be considered for discharge to [facility], he can complete oral course of Decadron for a total of 10 days including what she received hospital, she can continue on vitamins including vitamin C, vitamin D, and zinc. The plan is for patient to return to [facility] today and the family is requesting hospice consultation and palliative care initiation once the patient is back at the [facility]. I performed a history & physical examination of the patient and discussed their management with my nurse practitioner, Kathie Anderson. I reviewed the nurse practitioner's note and agree with the documented findings and plan of care. Lung sounds are positive for diminished breath sounds. The findings and the impression was discussed with the patient. I attest to the documentation by the nurse practitioner. Time with Patient: Less than 30
[2020-09-01] MEDS ORDERED: WARFARIN 0.5 MG TAB PO ONE (18:00)
--- NOTE | 2020-09-06 16:49 | CDI ---
Documentation Clarification Form Date: 09/06/20 From: Nevaeh Perez Phone: If you have a question regarding this query, please contact Darling Larsen at [phone] between 8am and 5pm. Admit Date: 08/27/2020 02:27:00 AM Patient Name: Jacquelyn Marks Visit Number: [id number] Discharge Date: 09/01/2020 02:08:00 PM ATTENTION: The Clinical Documentation Specialists (CDI) and [facility] Coding Staff appreciate your assistance in clarifying documentation. Please respond to the clarification below the line at the bottom and electronically sign. The CDI & [facility] Coding staff will review the response and follow-up if needed. Please note: Queries are made part of the Legal Health Record. If you have any questions, please contact the author of this message via ITS. Dr. David Scott The diagnosis sepsis was documented in the record, but is not noted in the discharge summary or your progress notes. History/Risk Factors: Covid pneumonia, aspiration pneumonia, gram negative pneumonia, acute hypoxic respiratory failure, metabolic encephalopathy. Clinical Indicators: Elevated procalcitonin WBC 8.1, 13.4 on 08/28 Lactic acid: 1.8 Blood cultures: No growth Vital signs on admission: T. 99.8, P. 101, R. 20, BP 111/73 then dropped to 98/50 2 hours later Treatment: Antibiotics: IV Zosyn IV Bolus: None Please clarify if the sepsis was xx Present/active this admission Treated and resolved this admission Ruled out Other, please specify Clinically unable to determine MTDD
== END 2020-09-01 14:08 | DRG 871 ==
LOC: EC 00:39 → 3SCARD 02:27 → 4SSUR 08-29 16:08
PROVIDERS: ADMIT Family Medicine; ATTEND Family Medicine
PROC: 05HF33Z Insertion of Infusion Device into Left Cephalic Vein, Percutaneous Approach (ICD-10-PCS; principal; 2020-08-30 15:45)
DX: A41.89 Other specified sepsis (principal); U07.1 COVID-19; J12.89 Other viral pneumonia; J69.0 Pneumonitis due to inhalation of food and vomit; J96.01 Acute respiratory failure with hypoxia; G93.41 Metabolic encephalopathy; J15.6 Pneumonia due to other Gram-negative bacteria; I50.42 Chronic combined systolic (congestive) and diastolic (congestive) heart failure; I48.20 Chronic atrial fibrillation, unspecified; F02.80 Dementia in other diseases classified elsewhere, unspecified severity, without behavioral disturbance, psychotic disturbance, mood disturbance, and anxiety; G30.9 Alzheimer's disease, unspecified; I11.0 Hypertensive heart disease with heart failure; E78.5 Hyperlipidemia, unspecified; F41.9 Anxiety disorder, unspecified; I44.7 Left bundle-branch block, unspecified; M10.9 Gout, unspecified; R32 Unspecified urinary incontinence; Z66 Do not resuscitate; Z79.01 Long term (current) use of anticoagulants; Z79.899 Other long term (current) drug therapy; Z90.710 Acquired absence of both cervix and uterus; Z88.1 Allergy status to other antibiotic agents; Z88.2 Allergy status to sulfonamides; Z90.49 Acquired absence of other specified parts of digestive tract; Z98.890 Other specified postprocedural states; Z87.19 Personal history of other diseases of the digestive system; Z91.81 History of falling
CPT/HCPCS: 36410; 36415; 71045; 76937; 80053; 82728; 83605; 83615; 83735; 84145; 85025; 85379; 85610; 85652; 85730; 86140; 87040; 93005; 94760; 96374; 99285